=== PATIENT | male | born 1955 | race Caucasian/White ===

== ENCOUNTER 2017-08-06 09:03 | Observation (INO) | payer OTHER ==
[2017-08-06] VITALS (10 sets, daily range): BP systolic 142–172; BP diastolic 86–116; PULSE 74–88; RESP 15–20; TEMP 97.7–98.6; O2SAT 94–98
[~2017-08-06] VITALS: Ht 170.2 cm; Wt 80.0 kg
[~2017-08-06 09:03] MED LIST: AMLO10 PO; ASPI81TA82 PO; ATOR20TA42 PO; METO50TA PO; PROT40TA PO; WAL-10TA2 PO
[2017-08-06] MEDS ORDERED: ASPI-516 CHEW (09:15)
[2017-08-06] MEDS ORDERED: ATOR20TA15 PO (09:15)
[2017-08-06] MEDS ORDERED: METO50TA PO (09:15)
[2017-08-06] MEDS ORDERED: AMLO10TA2 PO (09:15)
--- NOTE | 2017-08-06 09:42 | PD ---
HPI Chief Complaint: Cardiac Complaint Time Seen by Provider: 09:32 Travel History International Travel<30 days: No Contact w/Intl Traveler<30days: No Traveled to known affect area: No History of Present Illness HPI This patient complains of some chest discomfort. Started at 2 AM. Non- exertionally induced. Located in the left center chest. Britt like a pressure and heaviness. Also describes palpitations there. He has chronic A. fib on aspirin therapy only per his report. History of bypass grafting and stent placement. No recent testing however. Duration is 7 hours. No alleviating factors. No exacerbating factors. PFSH Past Medical History Hx Anticoagulant Therapy: Yes (ASPIRIN) Cancer: Yes (HODGKINS LYMPHOMA) Cardiac Catheterization: Yes Cardiovascular Problems: Yes (QUADRUPLE BYPASS) Chemotherapy: Yes Diabetes: No Diminished Hearing: No Endocrine: No Gastrointestinal Disorders: Yes (HE ACID REFLUX) Genitourinary: No Hepatitis: No Hiatal Hernia: No Hypertension: Yes Immune Disorder: No Musculoskeletal: No Neurologic: No Psychiatric: No Respiratory: No Thyroid Disease: No Tetanus Vaccination: > 5 Years Influenza Vaccination: No Past Surgical History Abdominal Surgery: No AICD: No Body Medical Devices: CARDIAC STENTS Cardiac Surgery: Yes (CABGX4) Coronary Stent: Yes Ear Surgery: No Endocrine Surgery: No Eye Surgery: No Genitourinary Surgery: No Gynecologic Surgery: No Joint Replacement: No Oral Surgery: No Pacemaker: No Thoracic Surgery: No Social History Alcohol Use: Yes Tobacco Use: Yes (former) Substance Use: No Allergies-Medications (Allergen,Severity, Reaction): Coded Allergies: No Known Allergies (Verified Adverse Reaction, Unknown, 08/06/17) Reported Meds & Prescriptions Reported Meds & Active Scripts Active Reported Metoprolol Tartrate 50 Mg Tab 50 Mg PO BID Atorvastatin (Atorvastatin Calcium) 20 Mg Tab 20 Mg PO HS Aspirin 81 Mg Chew 81 Mg CHEW DAILY Amlodipine (Amlodipine Besylate) 10 Mg Tab 10 Mg PO DAILY Review of Systems General / Constitutional: No: Fever Eyes: No: Visual changes HENT: No: Headaches Cardiovascular: Positive: Chest Pain or Discomfort, Palpitations, Irregular Rhythm Respiratory: No: Shortness of Breath Gastrointestinal: No: Abdominal Pain Genitourinary: No: Dysuria Musculoskeletal: No: Pain Skin: No Rash Neurologic: No: Weakness Psychiatric: No: Depression Endocrine: No: Polydipsia Hematologic/Lymphatic: No: Easy Bruising Physical Exam Narrative GENERAL: Well-nourished, well-developed patient in no apparent distress. SKIN: Focused skin assessment reveals no rash and nodules. Skin is Warm and dry. HEAD: Atraumatic. Normocephalic. EYES: Pupils equal and round. No scleral icterus. No injection or drainage. ENT: No nasal bleeding or discharge. Mucous membranes pink and moist. NECK: Trachea midline. No JVD. CARDIOVASCULAR: Irregularly irregular rhythm. 2/6 systolic murmur appreciated. RESPIRATORY: No accessory muscle use. Clear to auscultation. Breath sounds equal bilaterally. GASTROINTESTINAL: Abdomen soft, non-tender, nondistended. Hepatic and splenic margins not palpable. MUSCULOSKELETAL: No obvious deformities. No clubbing. No cyanosis. No edema. NEUROLOGICAL: Awake and alert. No obvious cranial nerve deficits. Motor grossly within normal limits. Normal speech. PSYCHIATRIC: Appropriate mood and affect; insight and judgment normal. Data Data Last Documented VS Vital Signs Date Time Temp Pulse Resp B/P (MAP) Pulse Ox O2 Delivery O2 Flow Rate FiO2 08/06/17 10:09 82 15 169/116 (133) 96 Nasal Cannula 08/06/17 10:09 2.00 08/06/17 09:05 98.6 Orders Orders Electrocardiogram (08/06/17 09:39) Basic Metabolic Panel (Bmp) (08/06/17 09:39) Ckmb (Isoenzyme) Profile (08/06/17 09:39) Complete Blood Count With Diff (08/06/17 09:39) Magnesium (Mg) (08/06/17 09:39) Prothrombin Time / Inr (Pt) (08/06/17 09:39) Act Partial Throm Time (Ptt) (08/06/17 09:39) Troponin I (08/06/17 09:39) Chest, Single Ap (08/06/17 09:39) Ecg Monitoring (08/06/17 09:39) Iv Access Insert/Monitor (08/06/17 09:39) Oximetry (08/06/17 09:39) Aspirin (Aspirin) (08/06/17 09:45) Sodium Chloride 0.9% Flush (Ns Flush) (08/06/17 09:45) CKMB (08/06/17 09:30) CKMB% (08/06/17 09:30) Labs Laboratory Tests Test 08/06/17 09:30 White Blood Count 14.8 TH/MM3 Red Blood Count 5.79 MIL/MM3 Hemoglobin 16.0 GM/DL Hematocrit 47.8 % Mean Corpuscular Volume 82.4 FL Mean Corpuscular Hemoglobin 27.6 PG Mean Corpuscular Hemoglobin Concent 33.5 % Red Cell Distribution Width 13.8 % Platelet Count 147 TH/MM3 Mean Platelet Volume 9.1 FL Neutrophils (%) (Auto) 76.6 % Lymphocytes (%) (Auto) 12.0 % Monocytes (%) (Auto) 6.0 % Eosinophils (%) (Auto) 4.9 % Basophils (%) (Auto) 0.5 % Neutrophils # (Auto) 11.4 TH/MM3 Lymphocytes # (Auto) 1.8 TH/MM3 Monocytes # (Auto) 0.9 TH/MM3 Eosinophils # (Auto) 0.7 TH/MM3 Basophils # (Auto) 0.1 TH/MM3 CBC Comment DIFF FINAL Differential Comment Prothrombin Time 10.7 SEC Prothromb Time International Ratio 1.1 RATIO Activated Partial Thromboplast Time 26.1 SEC Blood Urea Nitrogen 18 MG/DL Creatinine 1.22 MG/DL Random Glucose 106 MG/DL Calcium Level 9.4 MG/DL Magnesium Level 2.2 MG/DL Sodium Level 139 MEQ/L Potassium Level 3.2 MEQ/L Chloride Level 102 MEQ/L Carbon Dioxide Level 29.7 MEQ/L Anion Gap 7 MEQ/L Estimat Glomerular Filtration Rate 61 ML/MIN Total Creatine Kinase 145 U/L Creatine Kinase MB 2.2 NG/ML Troponin I LESS THAN 0.02 NG/ML MDM Medical Decision Making Medical Screen Exam Complete: Yes Emergency Medical Condition: Yes Medical Record Reviewed: Yes Differential Diagnosis Differential diagnosis includes MD, angina, pericarditis, pleurisy, GERD, anxiety. Narrative Course I have reviewed the patient's electronic medical record. IV placed I reviewed the EKG which shows A. fib but rate controlled and no ST elevation I reviewed the chest x-ray which shows a hint of minor pulmonary congestion possibly according to radiology reading. On a clinical basis he has no peripheral edema or shortness of breath or lung crackles. Extended cardiac monitoring shows rate controlled A. fib CBC shows minor nonspecific leukocytosis. He does not have symptoms compatible with pneumonia such as fever and productive cough etc. Metabolic profile is normal CK is negative Troponin is negative Coagulation studies are normal I gave him an aspirin. On recheck the patient is basically asymptomatic. He has known coronary disease and having chest discomfort. He will be a 23 hour observation in the chest pain center in order to rule out cardiac cause of his symptoms. He has not had any recent testing according to him. His bypass grafting was over 10 years ago. Diagnosis Primary Impression: Chest pain in adult Admitting Information Admitting Physician Requests: Observation Liam Zhu MD Aug 06, 2017 09:42
[2017-08-06] MEDS ORDERED: ASPIRIN 325 MG TAB PO ONE (09:45)
[2017-08-06] MEDS ORDERED: SODIUM CHLORIDE 0.9% FLUSH 10 ML FLUSH IVF PRN (09:45)
[2017-08-06 10:04] LABS: AUTOMATED NEUTROPHIL # 11.4 TH/MM3 (1.8-7.7); BASOPHIL # 0.1 TH/MM3 (0-0.2); BASOPHIL % 0.5 % (0.0-2.0); EOSINOPHIL # 0.7 TH/MM3 (0-0.4); EOSINOPHIL % 4.9 % (0.0-4.0); HEMATOCRIT 47.8 % (39.0-51.0); LYMPHOCYTE # 1.8 TH/MM3 (1.0-4.8); MEAN CELL VOLUME 82.4 FL (80.0-100.0); MEAN CORPUSCULAR HEMOGLOBIN 27.6 PG (27.0-34.0); MEAN CORPUSCULAR HGB CONC 33.5 % (32.0-36.0); MEAN PLATELET VOLUME 9.1 FL (7.0-11.0); MONOCYTE # 0.9 TH/MM3 (0-0.9); NEUT % 76.6 % (16.0-70.0); PLATELET COUNT 147 TH/MM3 (150-450); RED BLOOD COUNT 5.79 MIL/MM3 (4.50-5.90); RED CELL DISTRIBUTION WIDTH 13.8 % (11.6-17.2); WHITE BLOOD COUNT 14.8 TH/MM3 (4.0-11.0)
[2017-08-06 10:10] LABS: INTERNATIONAL NORMALIZED RATIO 1.1 RATIO; PROTHROMBIN TIME - PATIENT 10.7 SEC (9.8-11.6)
[2017-08-06 10:23] LABS: BICARBONATE 29.7 MEQ/L (21.0-32.0); BLOOD UREA NITROGEN 18 MG/DL (7-18); CALCIUM 9.4 MG/DL (8.5-10.1); CHLORIDE 102 MEQ/L (98-107); CREATININE 1.22 MG/DL (0.60-1.30); GLOMERULAR FILTRATION RATE 61 ML/MIN (>89); GLUCOSE,RANDOM 106 MG/DL (74-106); MAGNESIUM 2.2 MG/DL (1.5-2.5); SODIUM (NA) 139 MEQ/L (136-145)
--- NOTE | 2017-08-06 10:24 | RADRPT ---
EXAM DATE/TIME: 08/06/2017 10:07 [facility] COMPARISON: CHEST, AP [facility], October 12, 2014, 9:17. INDICATIONS : Mid-sternal chest pains radiating into axillary left arm. MEDICAL HISTORY : Myocardial infarction. Chronic obstructive pulmonary disease. SURGICAL HISTORY : CABG. ENCOUNTER: Initial ACUITY: 2 days PAIN SCORE: 7/10 LOCATION: Left chest FINDINGS: Noted is evidence of prior median sternotomy CABG. Heart is borderline left ventricular configuration . Pl avascularity may have some minimal ren-vascular interstitial changes suggesting mild pulmonary vascular congestion. No consolidative infiltrate. CONCLUSION: Prior median sternotomy CABG. Borderline left ventricular enlargement. Suggestion of minimal perivasc ular interstitial edema pulmonary vascular congestion Thomas Iqbal MD on August 06, 2017 at 10:19 Board Certified Radiologist. This report was verified electronically.
[2017-08-06 10:26] LABS: TROPONIN I LESS THAN 0.02 NG/ML (0.02-0.05)
[2017-08-06] MEDS ORDERED: NITROGLYCERIN 0.4 MG SL 25 TABS/BTL SL PRN (11:45)
[2017-08-06] MEDS ORDERED: ACETAMINOPHEN 500 MG CPLT PO PRN (11:45)
[2017-08-06] MEDS ORDERED: ONDANSETRON HCL 4 MG/2 ML VIAL IV PUSH PRN (11:45)
--- NOTE | 2017-08-06 12:41 | HHI.HP ---
HPI Primary Care Physician Dominick Alston MD Chief Complaint Chest pain History of Present Illness 62-year-old male with known coronary artery disease, CABG 4 at age 50 presents to emergency room for further violation of chest pain and dyspnea. Onset 2 AM. Discomfort awoken him from sleep. Characterized pressure and heaviness. Location left anterior chest. Severity 4/10. Associated symptoms of dyspnea. Denied nausea, vomiting, or diaphoresis. Chest discomfort duration 7-8 hours, dyspnea duration 5 hours. No known precipitating or relieving factors. Denies pain being similar to chest pain prior CABG. Endorses similar pains in the past , infrequent, nonexertional, and not as severe. Currently chest pain free and dyspnea resolved. Review of Systems General: No fatigue,weakness, fever, chills, or recent illness change in appetite. Has been his general state health. HEENT: No DAY, no vision changes, no nasal congestion or drainage, no dysphasia CV: As stated above. No current chest pain or pressure at present. History of A. fib without any past episodes of elevated rate with afib. No dizziness RESP: No SOB, cough, wheeze, or recent URI. GI: No nausea, vomiting, bowel changes, diarrhea, constipation, pain, distention , melena, blood in the stool. No change in appetite, no unintentional weight gain or weight loss : No dysuria, urgency, frequency EXT: No lower leg edema, no paraesthesias MS: No discomfort or change in ROM NEURO: No change in memory, LOC, motor/sensory deficits PSYCH: No anxiety, depression SKIN: No rashes, no concerning lesions Past Family Social History Allergies: Coded Allergies: No Known Allergies (Verified Allergy, Unknown, 08/06/17) Past Medical History A. fib, coronary artery disease, hyperlipidemia, Hodgkin's lymphoma, GERD, hypertension Past Surgical History CABG 4 (age 50) Reported Medications Reported Meds & Active Scripts Active Reported Metoprolol Tartrate 50 Mg Tab 50 Mg PO BID Atorvastatin (Atorvastatin Calcium) 20 Mg Tab 20 Mg PO HS Aspirin 81 Mg Chew 81 Mg CHEW DAILY Amlodipine (Amlodipine Besylate) 10 Mg Tab 10 Mg PO DAILY Active Ordered Medications Current Medications Medications (Trade) Dose Ordered Sig/Sammy Route Start Time Stop Time Status Last Admin (NS Flush) 2 ml UNSCH PRN IVF 08/06/17 09:45 (NS Flush) 2 ml BID IV FLUSH 08/06/17 21:00 (Tylenol) 500 mg Q4H PRN PO 08/06/17 11:45 (Zofran Inj) 4 mg Q6H PRN IV PUSH 08/06/17 11:45 (Nitrostat Sl) 0.4 mg Q5M PRN SL 08/06/17 11:45 (Aspirin) 325 mg DAILY PO 08/07/17 09:00 Social History Known coronary artery disease and hypertension. No known diabetes. Remote smoker. Denies any alcohol. Endorses lifestyle. Past Cardiac testing No recent cardiac testing. Patient paleologist is Dr. Bella. 10/26/13 cardiac catheterization (Dr. Bella) Conclusions 1. Severe three-vessel nightmute coronary artery disease. 2. Right dominant system. 3. Patent left internal mammary artery to LAD and patent vein graft to obtuse marginal. 4. Totally occluded pain graft to the post tearing a lateral branch, which is a new finding. 5. Moderately diseased proximal portion of the vein graft to the posterior descending artery with fractional flow reserve determination indicated absence of hemodynamic only significant disease. 6. Normal left ventricular function with estimated ejection fraction 55%. 12/20/10 cardiac catheterization (Dr. Bella) Conclusions 1. Severe three-vessel nightmute coronary disease. 2. Right dominant system. 3. Patent 4/4 bypass grafts including a left internal mammary artery to left anterior descending, 3 separate vein grafts to the obtuse marginal, posterior lateral branch, posterior descending artery. 4. Status post angioplasty and stent of nightmute left anterior descending distal to the anastomosis site, and the nightmute obtuse marginal distal to the anastomosis site. 5. Normal left ventricular function with ejection fraction of 65%. Physical Exam Vital Signs Vital Signs Date Time Temp Pulse Resp B/P (MAP) Pulse Ox O2 Delivery O2 Flow Rate FiO2 08/06/17 10:09 82 15 169/116 (133) 96 Nasal Cannula 08/06/17 10:09 85 15 169/116 (133) 95 Nasal Cannula 2.00 08/06/17 09:21 82 95 2.00 08/06/17 09:16 83 16 167/107 (127) 08/06/17 09:05 98.6 88 16 172/104 (126) 96 Physical Exam GENERAL: Alert WN, WD, NAD, pleasant HEAD: NC, AT CV: Irregular, regular rate, 2/6 murmur, no rub, gallop, no JVD, S1-S2 no S3- S4. Chest wall nontender with palpation. RESP: Clear lungs throughout bilateral, no crackles, wheeze, rhonchi, symmetrical chest rise, nonlabored, able to speak in full sentences ABD: Soft, NT, ND, no masses, positive bowel tones EXT: Pulses +24, no dependent edema MS: Normal tone 4 extremities, no obvious deformities, full range of motion NEURO: CN II through CN XII grossly intact, motor strength 5/5 PSYCH: A+O 3, pleasant affect, appropriate speech, mood, insight and judgment SKIN: Normal turgor, normal texture, no lesions, no rashes, brisk cap refill, even hair distribution Laboratory Laboratory Tests Test 08/06/17 09:30 White Blood Count 14.8 Red Blood Count 5.79 Hemoglobin 16.0 Hematocrit 47.8 Mean Corpuscular Volume 82.4 Mean Corpuscular Hemoglobin 27.6 Mean Corpuscular Hemoglobin Concent 33.5 Red Cell Distribution Width 13.8 Platelet Count 147 Mean Platelet Volume 9.1 Neutrophils (%) (Auto) 76.6 Lymphocytes (%) (Auto) 12.0 Monocytes (%) (Auto) 6.0 Eosinophils (%) (Auto) 4.9 Basophils (%) (Auto) 0.5 Neutrophils # (Auto) 11.4 Lymphocytes # (Auto) 1.8 Monocytes # (Auto) 0.9 Eosinophils # (Auto) 0.7 Basophils # (Auto) 0.1 CBC Comment DIFF FINAL Differential Comment Prothrombin Time 10.7 Prothromb Time International Ratio 1.1 Activated Partial Thromboplast Time 26.1 Blood Urea Nitrogen 18 Creatinine 1.22 Random Glucose 106 Calcium Level 9.4 Magnesium Level 2.2 Sodium Level 139 Potassium Level 3.2 Chloride Level 102 Carbon Dioxide Level 29.7 Anion Gap 7 Estimat Glomerular Filtration Rate 61 Total Creatine Kinase 145 Creatine Kinase MB 2.2 Troponin I LESS THAN 0.02 Result Diagram: 08/06/1792908/06/17929 Imaging Last 48 hours Impressions Chest X-Ray 08/06/17 0939 Signed Impressions: Service Date/Time: Sunday, August 06, 2017 10:07 - CONCLUSION: Prior median sternotomy CABG. Borderline left ventricular enlargement. Suggestion of minimal perivascular interstitial edema pulmonary vascular congestion Thomas Iqbal MD Course EKG atrial fibrillation with nonspecific ST changes Caprini VTE Risk Assessment Caprini VTE Risk Assessment: No/Low Risk (score <= 1) Caprini Risk Assessment Model Point Value = 1 Point Value = 2 Point Value = 3 Point Value = 5 Age 41-60 Minor surgery BMI > 25 kg/m2 Swollen legs Varicose veins or History of unexplained or recurrent spontaneous Oral contraceptives or hormone replacement Sepsis (< 1 month) Serious lung disease, including pneumonia (< 1 month) Abnormal pulmonary function Acute myocardial infarction Congestive heart failure (< 1 month) History of inflammatory bowel disease Medical patient at bed rest Age 61-74 Arthroscopic surgery Major open surgery (> 45 min) Laparoscopic surgery (> 45 min) Malignancy Confined to bed (> 72 hours) Immobilizing plaster cast Central venous access Age >= 75 History of VTE Family history of VTE Factor V Leiden Prothrombin [id number] Lupus anticoagulant Anticardiolipin antibodies Elevated serum homocysteine Heparin-induced thrombocytopenia Other congenital or acquired thrombophilia Stroke (< 1 month) Elective arthroplasty Hip, pelvis, or leg fracture Acute spinal cord injury (< 1 month) Prophylaxis Regimen Total Risk Factor Score Risk Level Prophylaxis Regimen 0-1 Low Early ambulation 2 Moderate Order ONE of the following: *Sequential Compression Device (SCD) *Heparin 5000 units SQ BID 3-4 Higher Order ONE of the following medications: *Heparin 5000 units SQ TID *Enoxaparin/Lovenox 40 mg SQ daily (WT < 150 kg, CrCl > 30 mL/min) *Enoxaparin/Lovenox 30 mg SQ daily (WT < 150 kg, CrCl > 10-29 mL/min) *Enoxaparin/Lovenox 30 mg SQ BID (WT < 150 kg, CrCl > 30 mL/min) AND/OR *Sequential Compression Device (SCD) 5 or more Highest Order ONE of the following medications: *Heparin 5000 units SQ TID (Preferred with Epidurals) *Enoxaparin/Lovenox 40 mg SQ daily (WT < 150 kg, CrCl > 30 mL/min) *Enoxaparin/Lovenox 30 mg SQ daily (WT < 150 kg, CrCl > 10-29 mL/min) *Enoxaparin/Lovenox 30 mg SQ BID (WT < 150 kg, CrCl > 30 mL/min) AND *Sequential Compression Device (SCD) Assessment and Plan Assessment and Plan #1 Chest pain-admitted to chest pain center. Rule out with 3 sets of EKGs, cardiac enzymes, and monitor on telemetry. Will be seen and evaluated by Dr. Caitie Low. Further disposition to follow. Discussed likelyhood of completing chemical stress testing later this afternoon after evaluation by Dr. Low. #2 History of coronary artery disease-continue amlodipine, aspirin, metoprolol, and atorvastatin [address] Bella and notified him of patient's admission to [facility]. Proceed with chemical stress testing in morning. Gena Canchola Aug 06, 2017 12:41
[2017-08-06 13:55] LABS: TROPONIN I LESS THAN 0.02 NG/ML (0.02-0.05)
[2017-08-06] MEDS ORDERED: POTASSIUM CHLORIDE 20 MEQ CONTROLLED RELEASE TAB PO ONE (14:00)
[2017-08-06 16:44] LABS: TROPONIN I 0.02 NG/ML (0.02-0.05)
--- NOTE | 2017-08-06 16:58 | EKG ---
Date Performed: 08/06/2017 Time Performed: 09:15:58 PTAGE: 62 years EKG: ATRIAL FIBRILLATION NONSPECIFIC ST & T-WAVE ABNORMALITY ABNORMAL RHYTHM ECG Since PREVIOUS TRACING , now in AF PREVIOUS TRACIN10/26/2013 06.14 DOCTOR: Caitie Low Interpretating Date/Time 08/06/2017 16:57:20
--- NOTE | 2017-08-06 16:58 | EKG ---
Date Performed: 08/06/2017 Time Performed: 13:51:09 PTAGE: 62 years EKG: ATRIAL FIBRILLATION NONSPECIFIC ST & T-WAVE ABNORMALITY ABNORMAL RHYTHM ECG Since PREVIOUS TRACING , no significant change noted PREVIOUS TRACIN08/06/2017 09.15 DOCTOR: Caitie Low Interpretating Date/Time 08/06/2017 16:58:08
[2017-08-06] MEDS ORDERED: SODIUM CHLORIDE 0.9% FLUSH 10 ML FLUSH IV FLUSH SCH (21:00)
[2017-08-06] MEDS ORDERED: ATORVASTATIN 20 MG TAB PO SCH (21:00)
[2017-08-06] MEDS ORDERED: METOPROLOL TARTRATE 50 MG TAB PO SCH (21:00)
[2017-08-06] MEDS ORDERED: diphenhydrAMINE HCL 25 MG CAP PO ONE (23:45)
[2017-08-07] VITALS: BP 149/93; PULSE 65; RESP 18; TEMP 98.6; O2SAT 95
[2017-08-07 03:36] VITALS: BP 154/102; PULSE 74; RESP 19; TEMP 99; O2SAT 94
[2017-08-07 07:01] VITALS: PULSE 75
[2017-08-07 07:25] VITALS: BP 144/94; PULSE 82; RESP 18; TEMP 99.6; O2SAT 96
[2017-08-07] MEDS ORDERED: ASPIRIN 325 MG TAB PO SCH (09:00)
[2017-08-07] MEDS ORDERED: REGADENOSON INJ 0.4 MG/5 ML SYR ONE (09:36)
--- NOTE | 2017-08-07 10:41 | RADRPT ---
EXAM DATE/TIME: 08/07/2017 09:05 [facility] COMPARISON: No previous studies available for comparison. INDICATIONS : Substernal chest pain. Angina. DOSE: 27.3 mCi Tc99m Myoview at stress. 8.6 mCi Tc99m Myoview at rest. 0.4 mg Lexiscan STRESS SYMPTOMS: Dyspnea. EJECTION FRACTION: 62% MEDICAL HISTORY : Hypercholesterolemia. Hypertension. Smoker. SURGICAL HISTORY : CABG Coronary artery stent. ENCOUNTER: Initial ACUITY: 1 day PAIN SCALE: 8/10 LOCATION: Substernal chest TECHNIQUE: The patient underwent pharmacologic stress with infusion of prescribed dose. Continuous ECG tracing was monitored during stress. Gated SPECT imaging was performed after stress and conventional SPECT i maging was performed at rest. The examination was performed on a SPECT/CT scanner, both attenuation and non-corrected datasets were reviewed. FINDINGS: DISTRIBUTION: The maximum perfused segment at stress is in the inferoseptal wall. PERFUSION STUDY: The examination demonstrates a moderate severity, moderate sized fixed perfusion defect involving por tions of the inferior and lateral perez. No reversible perfusion defect is identified. GATED STUDY: There is intact wall motion and thickening without hypokinetic or dyskinetic segments. CONCLUSION: 1. Next perfusion defect involving portions of the inferior lateral perez. No reversible perfusion de fect to indicate stress-induced myocardial ischemia is identified. 2. Ejection fraction within the range of normal. RISK CATEGORY: Intermediate (1-3% Annual Mortality Rate) Loco Adhikari MD on August 07, 2017 at 10:34 Board Certified Radiologist. This report was verified electronically.
[2017-08-07 11:35] VITALS: BP 152/92; PULSE 83; RESP 20; TEMP 97.9; O2SAT 95
--- NOTE | 2017-08-07 11:50 | PD.CARD.PN ---
Subjective Subjective Remarks Offers no complaints. Objective Medications Current Medications Medications (Trade) Dose Ordered Sig/Sammy Route Start Time Stop Time Status Last Admin (NS Flush) 2 ml UNSCH PRN IVF 08/06/17 09:45 (NS Flush) 2 ml BID IV FLUSH 08/06/17 21:00 (Tylenol) 500 mg Q4H PRN PO 08/06/17 11:45 (Zofran Inj) 4 mg Q6H PRN IV PUSH 08/06/17 11:45 (Nitrostat Sl) 0.4 mg Q5M PRN SL 08/06/17 11:45 (Aspirin) 325 mg DAILY PO 08/07/17 09:00 (Norvasc) 10 mg DAILY PO 08/07/17 09:00 (Lipitor) 20 mg HS PO 08/06/17 21:00 08/06/17 20:01 (Lopressor) 50 mg BID PO 08/06/17 21:00 08/06/17 20:02 Vital Signs / I&O Vital Signs Date Time Temp Pulse Resp B/P (MAP) Pulse Ox O2 Delivery O2 Flow Rate FiO2 08/07/17 11:35 97.9 83 20 152/92 (112) 95 08/07/17 07:25 99.6 82 18 144/94 (111) 96 08/07/17 07:01 75 08/07/17 03:36 99.0 74 19 154/102 (119) 94 08/07/17 00:00 98.6 65 18 149/93 (111) 95 08/06/17 20:20 95 Nasal Cannula 2.00 08/06/17 19:55 98.6 82 20 159/90 (113) 94 08/06/17 18:07 2.00 08/06/17 18:00 148/96 (113) 08/06/17 17:30 97.7 88 18 155/102 (119) 95 08/06/17 16:16 88 08/06/17 13:42 98.1 83 18 155/99 (117) 94 08/06/17 13:37 87 08/06/17 12:50 08/06/17 12:00 74 15 142/86 (104) 98 Nasal Cannula 2.00 I/O 08/06/17 08/06/17 08/06/17 08/07/17 08/07/1708/07/18 07:00 15:00 23:00 07:00 15:00 23:00 Intake Total 340 ml 200 ml Output Total 0 ml Balance 0 ml 340 ml 200 ml Intake Oral 340 ml 200 ml Output Urine Total 0 ml Physical Exam Gen.: No apparent distress. Cardiac: Irregular, irregular rate, 2/6 murmur. Respiratory: Lungs clear to auscultate bilaterally. Laboratory Laboratory Tests Test 08/06/17 13:10 08/06/17 15:40 Total Creatine Kinase 108 U/L 86 U/L Creatine Kinase MB 1.2 NG/ML Troponin I LESS THAN 0.02 NG/ML 0.02 NG/ML Imaging Last 24 hours Impressions Myocardial Perfusion Scan Nuc Med 08/07/17 0000 Signed Impressions: Service Date/Time: Monday, August 07, 2017 09:05 - CONCLUSION: 1. Next perfusion defect involving portions of the inferior lateral perez. No reversible perfusion defect to indicate stress-induced myocardial ischemia is identified. 2. Ejection fraction within the range of normal. RISK CATEGORY: Intermediate (1-3%% Annual Mortality Rate) Loco Adhikari MD Assessment and Plan Assessment and Plan * Chest pain: Patient had serial cardiac enzymes and EKGs ruling out purposes. He was seen by Dr. Low yesterday and had a nonischemic Lexiscan and will be discharged home at this time with instructions to follow-up with his cleat feeder as well as his PCP. He should resume his medications. Return to ED for interval issues. Patient stable at this time. He is agreeable to this plan. Olman Kaminski Aug 07, 2017 11:50
--- NOTE | 2017-08-07 13:06 | EKG ---
Date Performed: 08/06/2017 Time Performed: 15:41:50 PTAGE: 62 years EKG: ATRIAL FIBRILLATION NONSPECIFIC ST & T-WAVE ABNORMALITY ABNORMAL RHYTHM ECG PREVIOUS TRACING : 08/06/2017 13.51 Since previous tracing, no significant change noted DOCTOR: Lucian Florez Interpretating Date/Time 08/07/2017 13:06:06
--- NOTE | 2017-08-07 13:13 | HHI.DCPOC ---
Discharge Care Plan Diagnosis: (1) Chest pain (2) CAD (coronary artery disease) (3) Hx of CABG (4) Chronic a-fib (5) Hypertension (6) Hyperlipidemia Goals to Promote Your Health * To prevent worsening of your condition and complications * To maintain your health at the optimal level Directions to Meet Your Goals Take your medications as prescribed Follow your dietary instruction Follow activity as directed Keep your appointments as scheduled Take your immunizations and boosters as scheduled If your symptoms worsen call your PCP, if no PCP go to Urgent Care Center or Emergency Room Smoking is Dangerous to Your Health. Avoid second hand smoke Call the 24-hour hour crisis hotline for domestic abuse at Olman Kaminski Aug 07, 2017 13:13
--- NOTE | 2017-08-09 12:04 | TR ---
Date Performed: 08/07/2017 Time Performed: 09:38:14 DOCTOR: Damian Arce DRUG LIST: CLINICAL HISTORY: REASON FOR TEST: REASON FOR ENDING: OBSERVATION: CONCLUSION: Lexiscan stress test was performed under standard four minute protocol. Radionuclide was injected one minute prior to ending the test. No electrocardiographic abormalities were present to suggest ischemia. Nuclear imaging and interpretation are pending. COMMENTS:
== END 2017-08-07 13:49 | disposition home or self-care (01) ==
LOC: NEPE 09:03 → NEDA 11:19 → NEPFCDU 13:13
PROVIDERS: ADMIT Internal Medicine Interventional Cardiology; ATTEND Internal Medicine Interventional Cardiology
DX: R07.9 Chest pain, unspecified (principal); I25.10 Atherosclerotic heart disease of native coronary artery without angina pectoris; I48.2 Chronic atrial fibrillation; I10 Essential (primary) hypertension; E78.5 Hyperlipidemia, unspecified; K21.9 Gastro-esophageal reflux disease without esophagitis; Z95.5 Presence of coronary angioplasty implant and graft; Z95.1 Presence of aortocoronary bypass graft; Z79.82 Long term (current) use of aspirin; Z85.71 Personal history of Hodgkin lymphoma; Z87.891 Personal history of nicotine dependence
CPT/HCPCS: 71045; 78452; 80048; 82550; 82552; 83735; 84484; 85025; 85610; 85730; 93005; 93017; 99285; A9502; G0378; J2785

== ENCOUNTER 2017-08-12 12:42 | Inpatient (IN) | payer OTHER ==
[~2017-08-12] VITALS: Ht 170.2 cm; Wt 84.3 kg
[2017-08-12] VITALS (7 sets, daily range): BP systolic 146–175; BP diastolic 94–111; PULSE 72–94; RESP 18–27; TEMP 98.4–98.7; O2SAT 92–99
[~2017-08-12 12:42] MED LIST changes: -AMLO10 PO; +AMLO10TA2 PO; +ASPI-516 CHEW; -ASPI81TA82 PO; +ATOR20TA15 PO; -ATOR20TA42 PO; -PROT40TA PO; -WAL-10TA2 PO
[2017-08-12] MEDS ORDERED: IODIXANOL 320 MG/ML 10 ML VIAL (for Rad CT) IVCONTRAST ONE (12:43)
[2017-08-12 13:38] LABS: AUTOMATED NEUTROPHIL # 8.8 TH/MM3 (1.8-7.7); BASOPHIL # 0.1 TH/MM3 (0-0.2); BASOPHIL % 0.5 % (0.0-2.0); EOSINOPHIL # 0.5 TH/MM3 (0-0.4); EOSINOPHIL % 4.3 % (0.0-4.0); HEMOGLOBIN 14.3 GM/DL (13.0-17.0); LYMPH % 14.4 % (9.0-44.0); LYMPHOCYTE # 1.7 TH/MM3 (1.0-4.8); MEAN CELL VOLUME 80.7 FL (80.0-100.0); MEAN CORPUSCULAR HEMOGLOBIN 27.5 PG (27.0-34.0); MEAN CORPUSCULAR HGB CONC 34.1 % (32.0-36.0); MEAN PLATELET VOLUME 9.3 FL (7.0-11.0); MONO % 6.4 % (0.0-8.0); MONOCYTE # 0.8 TH/MM3 (0-0.9); NEUT % 74.4 % (16.0-70.0); PLATELET COUNT 177 TH/MM3 (150-450); WHITE BLOOD COUNT 11.9 TH/MM3 (4.0-11.0)
[2017-08-12 13:49] LABS: INTERNATIONAL NORMALIZED RATIO 1.1 RATIO; PROTHROMBIN TIME - PATIENT 10.7 SEC (9.8-11.6)
--- NOTE | 2017-08-12 13:55 | RADRPT ---
EXAM DATE/TIME: 08/12/2017 13:35 [facility] COMPARISON: CHEST SINGLE AP, August 06, 2017, 10:07. INDICATIONS : Short of breath. MEDICAL HISTORY : Lymphoma in remission SURGICAL HISTORY : Coronary artery stent. CABG. ENCOUNTER: Initial ACUITY: 1 day PAIN SCORE: 0/10 LOCATION: Left chest FINDINGS: Cardiomegaly with moderate interstitial edema and small bilateral pleural effusions suspicious for co ngestive failure. Findings have progressed in the interval. Sternal wires from previous bypass are noted. The portion of the bony skeleton visualized is unremarkable. CONCLUSION: Progression when compared to 08/06/17 thought to be congestive failure. Juan Adhikari MD FACR on August 12, 2017 at 13:52 Board Certified Radiologist. This report was verified electronically.
[2017-08-12 14:00] LABS: ALBUMIN 3.4 GM/DL (3.4-5.0); ALT (GPT) 70 U/L (12-78); AST (GOT) 61 U/L (15-37); BICARBONATE 25.4 MEQ/L (21.0-32.0); BLOOD UREA NITROGEN 35 MG/DL (7-18); CALCIUM 9.2 MG/DL (8.5-10.1); CHLORIDE 101 MEQ/L (98-107); CREATININE 1.84 MG/DL (0.60-1.30); GLOMERULAR FILTRATION RATE 38 ML/MIN (>89); GLUCOSE,RANDOM 103 MG/DL (74-106); MAGNESIUM 2.3 MG/DL (1.5-2.5); SODIUM (NA) 136 MEQ/L (136-145)
[2017-08-12 14:04] LABS: ALKALINE PHOSPHATASE 68 U/L (45-117); TOTAL BILIRUBIN ADULT 2.3 MG/DL (0.2-1.0); TROPONIN I LESS THAN 0.02 NG/ML (0.02-0.05)
[2017-08-12] MEDS ORDERED: FUROSEMIDE 100 MG/10 ML VIAL IVP ONE (14:15)
[2017-08-12] MEDS ORDERED: SODIUM CHLORIDE 0.9% FLUSH 10 ML FLUSH IVF PRN (14:15)
--- NOTE | 2017-08-12 14:33 | PD ---
HPI Chief Complaint: Respiratory Symptoms Time Seen by Provider: 13:59 Travel History International Travel<30 days: No Contact w/Intl Traveler<30days: No Traveled to known affect area: No History of Present Illness HPI 62-year-old male presents to the emergency Department with worsening exertional dyspnea over the past several days. Patient was recently admitted for chest pain one week ago, receiving a full cardiac workup including sestamibi stress test on August 06, 2016. Patient is noted to have atrial fibrillation. He is noted not to have no significant edema. Patient states he can walk approximately 10 feet before becoming extremely winded with chest tightness but no significant pain. This is gotten progressively worse since he left the hospital. 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 As fever, chills, productive cough, abdominal pain, nausea, or diarrhea. EKG performed in triage shows atrial fibrillation with questionable ST changes in the lateral leads. This is reviewed by Dr. Regalado. Labs were ordered in triage as well including a proBNP. The patient has no known drug allergies. It is noted the patient is not on a diuretic. Patient has no known drug allergies PFSH Past Medical History Hx Anticoagulant Therapy: Yes (ASPIRIN) Heart Rhythm Problems: Yes (AY FIB) Cancer: Yes ([place]KINS LYMPHOMA) Cardiac Catheterization: Yes Cardiovascular Problems: Yes (QUADRUPLE BYPASS) High Cholesterol: Yes Chemotherapy: Yes Diabetes: No Diminished Hearing: No Endocrine: No Gastrointestinal Disorders: Yes (HE ACID REFLUX) Genitourinary: No Hepatitis: No Hiatal Hernia: No Hypertension: Yes Immune Disorder: No Musculoskeletal: No Neurologic: No Psychiatric: No Respiratory: No Thyroid Disease: No Past Surgical History Abdominal Surgery: No AICD: No Body Medical Devices: CARDIAC STENTS Cardiac Surgery: Yes (CABGX4) Coronary Stent: Yes Ear Surgery: No Endocrine Surgery: No Eye Surgery: No Genitourinary Surgery: No Gynecologic Surgery: No Joint Replacement: No Oral Surgery: No Pacemaker: No Thoracic Surgery: No Other Surgery: Yes Family History Family Myocardial Infarction: Yes Social History Alcohol Use: Yes Tobacco Use: Yes (former) Substance Use: No Allergies-Medications (Allergen,Severity, Reaction): Coded Allergies: No Known Allergies (Verified Allergy, Unknown, 08/12/17) Reported Meds & Prescriptions Reported Meds & Active Scripts Active Reported Metoprolol Tartrate 50 Mg Tab 50 Mg PO BID Atorvastatin (Atorvastatin Calcium) 20 Mg Tab 20 Mg PO HS Aspirin 81 Mg Chew 81 Mg CHEW DAILY Amlodipine (Amlodipine Besylate) 10 Mg Tab 10 Mg PO DAILY Review of Systems Except as stated in HPI: all other systems reviewed are Neg General / Constitutional: No: Fever Eyes: No: Visual changes HENT: No: Headaches Cardiovascular: Positive: Chest Pain or Discomfort (tightness.), Irregular Rhythm, Dyspnea on exertion (moderate to severe) Respiratory: No: Shortness of Breath Gastrointestinal: No: Abdominal Pain Genitourinary: No: Dysuria Musculoskeletal: No: Pain Skin: No Rash Neurologic: No: Weakness Psychiatric: No: Depression Endocrine: No: Polydipsia Hematologic/Lymphatic: No: Easy Bruising Physical Exam Narrative GENERAL: Patient appears in mild distress and anxious. SKIN: Warm and dry. Normal color. Normal turgor HEAD: Atraumatic. Normocephalic. EYES: Pupils equal and round. No scleral icterus. No injection or drainage. ENT: No nasal bleeding or discharge. Mucous membranes pink and moist. Thanks is clear. Airway is patent NECK: Trachea midline. No JVD. Supple and nontender. CARDIOVASCULAR: Irregular rate and rhythm. Question 2/6 systolic murmur. RESPIRATORY: No accessory muscle use. Mild wheezes and crackles bilaterally to auscultation. Breath sounds equal bilaterally. GASTROINTESTINAL: Abdomen soft, non-tender, nondistended. Hepatic and splenic margins not palpable. MUSCULOSKELETAL: Extremities without clubbing, cyanosis, or edema. No obvious deformities. NEUROLOGICAL: Awake and alert. No obvious cranial nerve deficits. Motor grossly within normal limits. Five out of 5 muscle strength in the arms and legs. Normal speech. PSYCHIATRIC: Appropriate mood and affect; insight and judgment normal. Data Data Last Documented VS Vital Signs Date Time Temp Pulse Resp B/P (MAP) Pulse Ox O2 Delivery O2 Flow Rate FiO2 08/12/17 14:33 94 Nasal Cannula 2.00 08/12/17 13:43 08/12/17 12:44 98.7 75 18 Orders Orders Complete Blood Count With Diff (08/12/17 12:54) Comprehensive Metabolic Panel (08/12/17 12:54) B-Type Natriuretic Peptide (08/12/17 12:54) Act Partial Throm Time (Ptt) (08/12/17 12:54) Prothrombin Time / Inr (Pt) (08/12/17 12:54) Magnesium (Mg) (08/12/17 12:54) Ckmb (Isoenzyme) Profile (08/12/17 12:54) Troponin I (08/12/17 12:54) Electrocardiogram (08/12/17 12:54) Chest, Pa & Lat (08/12/17 12:54) CKMB (08/12/17 13:20) CKMB% (08/12/17 13:20) Iv Access Insert/Monitor (08/12/17 14:13) Ecg Monitoring (08/12/17 14:13) Oximetry (08/12/17 14:13) Oxygen Administration (08/12/17 14:13) Sodium Chloride 0.9% Flush (Ns Flush) (08/12/17 14:15) Furosemide Inj (Lasix Inj) (08/12/17 14:15) Ct Pulmonary Angiogram (08/12/17 14:36) Iodixanol 320 Inj (Rad Ct) (Visipaque 32 (08/12/17 12:43) Labs Laboratory Tests Test 08/12/17 13:20 White Blood Count 11.9 TH/MM3 Red Blood Count 5.20 MIL/MM3 Hemoglobin 14.3 GM/DL Hematocrit 42.0 % Mean Corpuscular Volume 80.7 FL Mean Corpuscular Hemoglobin 27.5 PG Mean Corpuscular Hemoglobin Concent 34.1 % Red Cell Distribution Width 14.0 % Platelet Count 177 TH/MM3 Mean Platelet Volume 9.3 FL Neutrophils (%) (Auto) 74.4 % Lymphocytes (%) (Auto) 14.4 % Monocytes (%) (Auto) 6.4 % Eosinophils (%) (Auto) 4.3 % Basophils (%) (Auto) 0.5 % Neutrophils # (Auto) 8.8 TH/MM3 Lymphocytes # (Auto) 1.7 TH/MM3 Monocytes # (Auto) 0.8 TH/MM3 Eosinophils # (Auto) 0.5 TH/MM3 Basophils # (Auto) 0.1 TH/MM3 CBC Comment DIFF FINAL Differential Comment Prothrombin Time 10.7 SEC Prothromb Time International Ratio 1.1 RATIO Activated Partial Thromboplast Time 25.8 SEC Blood Urea Nitrogen 35 MG/DL Creatinine 1.84 MG/DL Random Glucose 103 MG/DL Total Protein 7.0 GM/DL Albumin 3.4 GM/DL Calcium Level 9.2 MG/DL Magnesium Level 2.3 MG/DL Alkaline Phosphatase 68 U/L Aspartate Amino Transf (AST/SGOT) 61 U/L Alanine Aminotransferase (ALT/SGPT) 70 U/L Total Bilirubin 2.3 MG/DL Sodium Level 136 MEQ/L Potassium Level 3.8 MEQ/L Chloride Level 101 MEQ/L Carbon Dioxide Level 25.4 MEQ/L Anion Gap 10 MEQ/L Estimat Glomerular Filtration Rate 38 ML/MIN Total Creatine Kinase 334 U/L Creatine Kinase MB 11.1 NG/ML Creatine Kinase MB % 3.3 % Troponin I LESS THAN 0.02 NG/ML B-Type Natriuretic Peptide 487 PG/ML MDM Medical Decision Making Medical Screen Exam Complete: Yes Emergency Medical Condition: Yes Medical Record Reviewed: Yes Differential Diagnosis Moderate to severe Exertional dyspnea. Cardiac syndrome. PE. CHF. Renal failure. Narrative Course Patient appears medically stable at time of exam. EKG shows atrial fibrillation consistent with previous EKG. Labs show mild leukocytosis of 11.9 PT 10.7, INR 1.1, APTT is 25.8 Chemistry showed normal electrolytes, BUN is 35, creatinine is 1.8 for which is elevated from previous visit, as many GFR is 38 Total bilirubin is elevated at 2.3, AST is 61, total creatinine kinase is 334, CK-MB is 11.1 however troponin is less than 0.02. BNP is a 47 Chest x-ray shows: Cardiomegaly with moderate interstitial edema and small bilateral pleural effusions suspicious for congestive failure. Findings have progressed in the interval. Sternal wires from previous bypass are noted. The portion of the bony skeleton visualized is unremarkable. Patient is noted to only be on metoprolol, amlodipine, and aspirin. Patient is given 60 mg Lasix IV. Patient discussed with Dr. Regalado, and PE is possible. CTA of the chest is ordered. CTA is negative for any pulmonary emboli. Hospitalist is called for admission. Diagnosis Primary Impression: Congestive heart failure Qualified Codes: I50.9 - Heart failure, unspecified Additional Impression: Chronic a-fib Admitting Information Admitting Physician Requests: Admit Condition: Stable Remington Saunders Aug 12, 2017 14:33
--- NOTE | 2017-08-12 14:48 | PD ---
Physical Exam Date Seen by Provider: Aug 12, 2017 Narrative Patient presents with dyspnea for about a week. It is getting progressively worse. Data Data Last Documented VS Vital Signs Date Time Temp Pulse Resp B/P (MAP) Pulse Ox O2 Delivery O2 Flow Rate FiO2 08/12/17 14:33 94 Nasal Cannula 2.00 08/12/17 13:43 08/12/17 12:44 98.7 75 18 Orders Orders Complete Blood Count With Diff (08/12/17 12:54) Comprehensive Metabolic Panel (08/12/17 12:54) B-Type Natriuretic Peptide (08/12/17 12:54) Act Partial Throm Time (Ptt) (08/12/17 12:54) Prothrombin Time / Inr (Pt) (08/12/17 12:54) Magnesium (Mg) (08/12/17 12:54) Ckmb (Isoenzyme) Profile (08/12/17 12:54) Troponin I (08/12/17 12:54) Electrocardiogram (08/12/17 12:54) Chest, Pa & Lat (08/12/17 12:54) CKMB (08/12/17 13:20) CKMB% (08/12/17 13:20) Iv Access Insert/Monitor (08/12/17 14:13) Ecg Monitoring (08/12/17 14:13) Oximetry (08/12/17 14:13) Oxygen Administration (08/12/17 14:13) Sodium Chloride 0.9% Flush (Ns Flush) (08/12/17 14:15) Furosemide Inj (Lasix Inj) (08/12/17 14:15) Ct Pulmonary Angiogram (08/12/17 14:36) Labs Laboratory Tests Test 08/12/17 13:20 White Blood Count 11.9 TH/MM3 Red Blood Count 5.20 MIL/MM3 Hemoglobin 14.3 GM/DL Hematocrit 42.0 % Mean Corpuscular Volume 80.7 FL Mean Corpuscular Hemoglobin 27.5 PG Mean Corpuscular Hemoglobin Concent 34.1 % Red Cell Distribution Width 14.0 % Platelet Count 177 TH/MM3 Mean Platelet Volume 9.3 FL Neutrophils (%) (Auto) 74.4 % Lymphocytes (%) (Auto) 14.4 % Monocytes (%) (Auto) 6.4 % Eosinophils (%) (Auto) 4.3 % Basophils (%) (Auto) 0.5 % Neutrophils # (Auto) 8.8 TH/MM3 Lymphocytes # (Auto) 1.7 TH/MM3 Monocytes # (Auto) 0.8 TH/MM3 Eosinophils # (Auto) 0.5 TH/MM3 Basophils # (Auto) 0.1 TH/MM3 CBC Comment DIFF FINAL Differential Comment Prothrombin Time 10.7 SEC Prothromb Time International Ratio 1.1 RATIO Activated Partial Thromboplast Time 25.8 SEC Blood Urea Nitrogen 35 MG/DL Creatinine 1.84 MG/DL Random Glucose 103 MG/DL Total Protein 7.0 GM/DL Albumin 3.4 GM/DL Calcium Level 9.2 MG/DL Magnesium Level 2.3 MG/DL Alkaline Phosphatase 68 U/L Aspartate Amino Transf (AST/SGOT) 61 U/L Alanine Aminotransferase (ALT/SGPT) 70 U/L Total Bilirubin 2.3 MG/DL Sodium Level 136 MEQ/L Potassium Level 3.8 MEQ/L Chloride Level 101 MEQ/L Carbon Dioxide Level 25.4 MEQ/L Anion Gap 10 MEQ/L Estimat Glomerular Filtration Rate 38 ML/MIN Total Creatine Kinase 334 U/L Creatine Kinase MB 11.1 NG/ML Creatine Kinase MB % 3.3 % Troponin I LESS THAN 0.02 NG/ML B-Type Natriuretic Peptide 487 PG/ML MDM Supervised Visit with NOELLE: Yes Narrative Course I, Dr. Regalado, have reviewed the advance practice practitioner's documentation and am in agreement, met with the patient face to face, made the diagnosis, and the medical decision making was done by me. *My assessment and Findings: Patient is sitting on the edge of the bed wearing oxygen. He does not appear to be in any acute respiratory distress at this time. However, he is currently on oxygen. His lung exam shows diffuse fine crackles compatible with chronic lung disease. Please see Kana Saunders PA-C's note for results of laboratory and radiographic evaluation, ED course, final diagnosis and disposition Condition: Stable Gabriela Regalado MD Aug 12, 2017 14:47
--- NOTE | 2017-08-12 17:02 | RADRPT ---
EXAM DATE/TIME: 08/12/2017 16:12 [facility] COMPARISON: No previous studies available for comparison. INDICATIONS : Shortness of breath for a week IV CONTRAST: 49 cc Visipaque (iodixanol) IV RADIATION DOSE: 20.85 CTDIvol (mGy) MEDICAL HISTORY : Hypertension. Lymphoma. SURGICAL HISTORY : CABG ENCOUNTER: Initial ACUITY: 1 day PAIN SCALE: 2/10 LOCATION: chest TECHNIQUE: Volumetric scanning of the chest was performed using a pulmonary embolism protocol MIP images were re constructed. Using automated exposure control and adjustment of the mA and/or kV according to patien t size, radiation dose was kept as low as reasonably achievable to obtain optimal diagnostic quality images. DICOM format image data is available electronically for review and comparison. Follow-up recommendations for detected pulmonary nodules are based at a minimum on nodule size and pa tient risk factors according to Fleischner Society Guidelines. FINDINGS: There is moderate interstitial edema. There is moderate right pleural effusion and small left pleura l effusion. Trace pericardial effusion is evident. There is no evidence for central pulmonary glide. Patient is the prominent left atrium. Sternal wires from previous bypass are noted Degenerative changes are present in the thoracic spine Some collateralization is seen around the left subclavian vein. CONCLUSION: Moderate congestive failure with bilateral pleural effusions larger on the right and moderate size on the left. No central pulmonary emboli. Juan Adhikari MD FACR on August 12, 2017 at 16:58 Board Certified Radiologist. This report was verified electronically.
--- NOTE | 2017-08-12 20:22 | HHI.HP ---
HPI Service [facility] Hospitalists Primary Care Physician Dominick Alston MD Admission Diagnosis CHF/Exertional Dyspnea Chief Complaint: dyspnea on exertion, orthopnea, recent CP w/u Travel History International Travel<30 Days: No Contact w/Intl Traveler <30 Da: No Traveled to Known Affected Are: No History of Present Illness 62-year-old Doug male with history of coronary artery disease and Hodgkin' s lymphoma presents to the emergency Department with worsening exertional dyspnea over the past several days. Patient was recently admitted for chest pain one week ago, receiving a full cardiac workup including sestamibi stress test on August 06, 2016 which demonstrated no reversible defects but some fixed defects from likely prior infarct. Interestingly his ejection fraction was noted as normal at 62% on the myocardial perfusion scan. He was having chest pain during that admission but has not had chest pain since the discharge. Patient is noted to have atrial fibrillation. He denies significant edema or swelling in his extremities. He denies any change in his diet of late, specifically no increased salt intake. No recent Medication changes. Patient states he can walk approximately 10 feet before becoming extremely winded with chest tightness but no significant pain. This has gotten progressively worse since he left the hospital. Patient is scheduled to meet with his emergency room nurse tomorrow, but felt so bad today he had to come in or even. No fever, chills, productive cough, abdominal pain, nausea, or diarrhea. EKG performed in triage shows atrial fibrillation with questionable ST changes in the lateral leads. It is noted the patient is not on a diuretic and no anticoagulation other than aspirin. Patient has no known drug allergies. Patient was given IV furosemide in the ER and has diuresed approximately 1-1/2 to 2 L. Ports he feels much improved and can breathe much easier since diuresis per Review of Systems Constitutional: COMPLAINS OF: Fatigue, DENIES: Diaphoretic episodes, Fever, Weight gain, Weight loss, Chills, Dizziness, Change in appetite, Night Sweats Endocrine: DENIES: Heat/cold intolerance, Polydipsia, Polyuria, Polyphagia Eyes: DENIES: Blurred vision, Diplopia, Eye inflammation, Eye pain, Vision loss , Photosensitivity, Double Vision Ears, nose, mouth, throat: DENIES: Tinnitus, Hearing loss, Vertigo, Nasal discharge, Oral lesions, Throat pain, Hoarseness, Ear Pain, Running Nose, Epistaxis, Sinus Pain, Toothache, Odynophagia Respiratory: COMPLAINS OF: Shortness of breath, DENIES: Apneas, Cough, Snoring , Wheezing, Hemoptysis, Sputum production Cardiovascular: COMPLAINS OF: Chest pain, Dyspnea on Exertion, PND, Orthopnea, DENIES: Palpitations, Syncope, Lower Extremity Edema, Claudication Gastrointestinal: DENIES: Abdominal pain, Black stools, Bloody stools, BRB per rectum, Constipation, Diarrhea, GERD, Nausea, Reflux, Vomiting, Difficulty Swallowing, Anorexia, See HPI Integumentary: DENIES: Abnormal pigmentation, Nail changes, Pruritus, Rash Hematologic/lymphatic: DENIES: Bruising, Lymphadenopathy Immunologic/allergic: DENIES: Eczema, Urticaria Neurologic: DENIES: Abnormal gait, Headache, Localized weakness, Paresthesias, Seizures, Speech Problems, Tremor, Poor Balance Psychiatric: DENIES: Anxiety, Confusion, Mood changes, Depression, Hallucinations, Agitation, Suicidal Ideation, Homicidal Ideation, Delusions, History of Bipolar, History of Schizophrenia Past Family Social History Past Medical History Coronary artery disease (10/26/13 cardiac catheterization (Dr. Bella) Conclusions 1. Severe three-vessel [place] coronary artery disease. 2. Right dominant system. 3. Patent left internal mammary artery to LAD and patent vein graft to obtuse marginal. 4. Totally occluded pain graft to the post tearing a lateral branch, which is a new finding. 5. Moderately diseased proximal portion of the vein graft to the posterior descending artery with fractional flow reserve determination indicated absence of hemodynamic only significant disease. 6. Normal left ventricular function with estimated ejection fraction 55%.) Hyperlipidemia Hypertension Atrial fibrillation Nodular Hodgkin's lymphoma Past Surgical History Coronary artery bypass graft 4 in 2005 Coronary artery stent Lymph node biopsy Colonoscopy done in 2016 revealing 2 polyps which were not cancerous Port placement 2015 Reported Medications Metoprolol Tartrate 50 Mg Tab 50 Mg PO BID Atorvastatin (Atorvastatin Calcium) 20 Mg Tab 20 Mg PO HS Aspirin 81 Mg Chew 81 Mg CHEW DAILY Amlodipine (Amlodipine Besylate) 10 Mg Tab 10 Mg PO DAILY Allergies: Coded Allergies: No Known Allergies (Verified Allergy, Unknown, 08/12/17) Family History Father, brother and 3 sisters with coronary artery disease Social History Tobacco and 33 years but prior to that smoked 1 pack per day for approximately 7 or 8 years He drinks alcohol but not regularly Denies illicit drug use Lives with his and has 2 adult children 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 Sitting on the bedside. Alert and oriented. Cooperative. SKIN: No rashes, ecchymoses or lesions. Cool and dry. HEAD: Atraumatic. Normocephalic. No temporal or scalp tenderness. EYES: Pupils equal round and reactive. Extraocular motions intact. No scleral icterus. No injection or drainage. ENT: Nose without bleeding, purulent drainage or septal hematoma. Airway patent. NECK: Trachea midline. No JVD or lymphadenopathy. Supple, nontender, no meningeal signs. CARDIOVASCULAR: Irregularly irregular with rate in the 80s on my exam. 3/6 systolic ejection murmur heard along the left sternal border and into the aortic space. RESPIRATORY: Few fine crackles in left base otherwise clear to auscultation with no wheeze. Good air movement. GASTROINTESTINAL: Abdomen soft, non-tender, nondistended. No hepato-splenomegaly , or palpable masses. No guarding. MUSCULOSKELETAL: Extremities without clubbing, cyanosis. Trace edema in the feet. No joint tenderness, effusion, or edema noted. No calf tenderness. NEUROLOGICAL: Awake and alert. Cranial nerves II through XII intact. Motor and sensory grossly within normal limits. Five out of 5 muscle strength in all muscle groups. Normal speech. Laboratory Laboratory Tests Test 08/12/17 13:20 White Blood Count 11.9 Red Blood Count 5.20 Hemoglobin 14.3 Hematocrit 42.0 Mean Corpuscular Volume 80.7 Mean Corpuscular Hemoglobin 27.5 Mean Corpuscular Hemoglobin Concent 34.1 Red Cell Distribution Width 14.0 Platelet Count 177 Mean Platelet Volume 9.3 Neutrophils (%) (Auto) 74.4 Lymphocytes (%) (Auto) 14.4 Monocytes (%) (Auto) 6.4 Eosinophils (%) (Auto) 4.3 Basophils (%) (Auto) 0.5 Neutrophils # (Auto) 8.8 Lymphocytes # (Auto) 1.7 Monocytes # (Auto) 0.8 Eosinophils # (Auto) 0.5 Basophils # (Auto) 0.1 CBC Comment DIFF FINAL Differential Comment Prothrombin Time 10.7 Prothromb Time International Ratio 1.1 Activated Partial Thromboplast Time 25.8 Blood Urea Nitrogen 35 Creatinine 1.84 Random Glucose 103 Total Protein 7.0 Albumin 3.4 Calcium Level 9.2 Magnesium Level 2.3 Alkaline Phosphatase 68 Aspartate Amino Transf (AST/SGOT) 61 Alanine Aminotransferase (ALT/SGPT) 70 Total Bilirubin 2.3 Sodium Level 136 Potassium Level 3.8 Chloride Level 101 Carbon Dioxide Level 25.4 Anion Gap 10 Estimat Glomerular Filtration Rate 38 Total Creatine Kinase 334 Creatine Kinase MB 11.1 Creatine Kinase MB % 3.3 Troponin I LESS THAN 0.02 B-Type Natriuretic Peptide 487 Result Diagram: 08/12/17 1320 08/12/17 1320 Imaging Last [address] Angiography 08/12/17 1436 Signed Impressions: Service Date/Time: Saturday, August 12, 2017 16:12 - CONCLUSION: Moderate congestive failure with bilateral pleural effusions larger on the right and moderate size on the left. No central pulmonary emboli. Juan Adhikari MD FACR Chest X-Ray 08/12/17 1254 Signed Impressions: Service Date/Time: Saturday, August 12, 2017 13:35 - CONCLUSION: Progression when compared to 08/06/17 thought to be congestive failure. Juan Adhikari MD FACR Caprini VTE Risk Assessment Caprini VTE Risk Assessment: Mod/High Risk (score >= 2) Caprini Risk Assessment Model Point Value = 1 Point Value = 2 Point Value = 3 Point Value = 5 Age 41-60 Minor surgery BMI > 25 kg/m2 Swollen legs Varicose veins or History of unexplained or recurrent spontaneous Oral contraceptives or hormone replacement Sepsis (< 1 month) Serious lung disease, including pneumonia (< 1 month) Abnormal pulmonary function Acute myocardial infarction Congestive heart failure (< 1 month) History of inflammatory bowel disease Medical patient at bed rest Age 61-74 Arthroscopic surgery Major open surgery (> 45 min) Laparoscopic surgery (> 45 min) Malignancy Confined to bed (> 72 hours) Immobilizing plaster cast Central venous access Age >= 75 History of VTE Family history of VTE Factor V Leiden Prothrombin [id number] Lupus anticoagulant Anticardiolipin antibodies Elevated serum homocysteine Heparin-induced thrombocytopenia Other congenital or acquired thrombophilia Stroke (< 1 month) Elective arthroplasty Hip, pelvis, or leg fracture Acute spinal cord injury (< 1 month) Prophylaxis Regimen Total Risk Factor Score Risk Level Prophylaxis Regimen 0-1 Low Early ambulation 2 Moderate Order ONE of the following: *Sequential Compression Device (SCD) *Heparin 5000 units SQ BID 3-4 Higher Order ONE of the following medications: *Heparin 5000 units SQ TID *Enoxaparin/Lovenox 40 mg SQ daily (WT < 150 kg, CrCl > 30 mL/min) *Enoxaparin/Lovenox 30 mg SQ daily (WT < 150 kg, CrCl > 10-29 mL/min) *Enoxaparin/Lovenox 30 mg SQ BID (WT < 150 kg, CrCl > 30 mL/min) AND/OR *Sequential Compression Device (SCD) 5 or more Highest Order ONE of the following medications: *Heparin 5000 units SQ TID (Preferred with Epidurals) *Enoxaparin/Lovenox 40 mg SQ daily (WT < 150 kg, CrCl > 30 mL/min) *Enoxaparin/Lovenox 30 mg SQ daily (WT < 150 kg, CrCl > 10-29 mL/min) *Enoxaparin/Lovenox 30 mg SQ BID (WT < 150 kg, CrCl > 30 mL/min) AND *Sequential Compression Device (SCD) Assessment and Plan Problem List: (1) Congestive heart failure ICD Codes: I50.9 - Heart failure, unspecified Status: Acute Plan: We'll continue diuresis. Check echocardiogram as last one was done in 2014. Strict intake and output. Consult his emergency room nurse, Dr. Bella (2) Hodgkin lymphoma ICD Codes: C81.90 - Hodgkin lymphoma Status: Chronic Plan: Follow with outpatient oncology. (3) CAD (coronary artery disease) ICD Codes: I25.10 - Atherosclerotic heart disease of [place] coronary artery without angina pectoris Status: Chronic Plan: Had recent myocardial perfusion scan which was negative for any acute infarct within the last 2 weeks. Consult his emergency room nurse. (4) Chronic a-fib ICD Codes: I48.2 - Chronic atrial fibrillation Status: Chronic Plan: Reportedly initially experiences after his bypass graft. Rate relatively well controlled. Chads 2 vasc score is 2 or 3 and likely would benefit from an anticoagulants such as warfarin or alternative oral anticoagulant. Will consult his emergency room nurse for opinion. We'll give 1 dose of Lovenox tonight in light of his renal insufficiency and possible upcoming interventions. (5) Hypertension ICD Codes: I10 - Essential (primary) hypertension Status: Chronic Plan: Fair control. Continue medication. (6) Hyperlipidemia ICD Codes: E78.5 - Hyperlipidemia, unspecified Status: Chronic Plan: Continue statin. Total cholesterol was 98 in May 2017 with an LDL of 39 and HDL of 42. (7) Renal insufficiency ICD Codes: N28.9 - Disorder of kidney and ureter, unspecified Status: Acute Plan: Baseline creatinine appears to be about 1.0 with current creatinine of 1.8. We'll monitor as he is undergoing diuresis. Code Status full Discussed Condition With Patient and ER provider. Physician Certification 2 Midnight Certification Type: Admission for Inpatient Services Order for Inpatient Services The services are ordered in accordance with Medicare regulations or non- Medicare payer requirements, as applicable. In the case of services not specified as inpatient-only, they are appropriately provided as inpatient services in accordance with the 2-midnight benchmark. Estimated LOS (days): 2 days is the estimated time the patient will need to remain in the hospital, assuming treatment plan goals are met and no additional complications. Post-Hospital Plan: Home Problem Qualifiers (1) Congestive heart failure: Qualified Codes: I50.9 - Heart failure, unspecified (2) Hodgkin lymphoma: (3) Hypertension: Qualified Codes: I10 - Essential (primary) hypertension Alec Izaguirre MD PhD Aug 12, 2017 20:22
[2017-08-12] MEDS ORDERED: ENOXAPARIN SODIUM 40 MG/0.4 ML SYRINGE SQ ONE (20:30)
[2017-08-12] MEDS ORDERED: SODIUM CHLORIDE 0.9% FLUSH 10 ML FLUSH IV FLUSH PRN (20:30)
[2017-08-12] MEDS: SODIUM CHLORIDE 0.9% FLUSH 10 ML FLUSH IV FLUSH SCH (21:00)
[2017-08-12] MEDS: METOPROLOL TARTRATE 50 MG TAB PO SCH (21:50)
[2017-08-12] MEDS: POTASSIUM CHLORIDE 20 MEQ CONTROLLED RELEASE TAB PO SCH (21:50)
[2017-08-13] VITALS (11 sets, daily range): BP systolic 114–155; BP diastolic 87–102; PULSE 59–89; RESP 18–20; TEMP 97.7–98.7; O2SAT 93–96
[2017-08-13] MEDS ORDERED: guaiFENesin/DEXTROMETHORPHAN 200 MG/20 MG/10 ML CUP PO PRN (00:30)
[2017-08-13] MEDS: guaiFENesin/DEXTROMETHORPHAN 200 MG/20 MG/10 ML CUP PO PRN ×3 (00:36→20:21)
[2017-08-13] MEDS: SODIUM CHLORIDE 0.9% FLUSH 10 ML FLUSH IV FLUSH SCH ×2 (07:46→20:21)
[2017-08-13] MEDS: FUROSEMIDE 40 MG/4 ML VIAL IVP SCH ×2 (08:26→17:04)
[2017-08-13] MEDS: ASPIRIN 81 MG CHEW TAB CHEW SCH (08:26)
[2017-08-13] MEDS: METOPROLOL TARTRATE 50 MG TAB PO SCH ×2 (08:26→20:21)
[2017-08-13] MEDS: ATORVASTATIN 80 MG TAB PO SCH (08:26)
[2017-08-13] MEDS: POTASSIUM CHLORIDE 20 MEQ CONTROLLED RELEASE TAB PO SCH ×2 (08:27→20:21)
[2017-08-13 08:41] LABS: ALBUMIN 3.2 GM/DL (3.4-5.0); AST (GOT) 53 U/L (15-37); BICARBONATE 25.9 MEQ/L (21.0-32.0); BLOOD UREA NITROGEN 34 MG/DL (7-18); CALCIUM 8.5 MG/DL (8.5-10.1); CHLORIDE 103 MEQ/L (98-107); CREATININE 1.44 MG/DL (0.60-1.30); GLOMERULAR FILTRATION RATE 50 ML/MIN (>89); GLUCOSE,RANDOM 93 MG/DL (74-106); SODIUM (NA) 139 MEQ/L (136-145)
[2017-08-13 08:42] LABS: ALT (GPT) 65 U/L (12-78)
[2017-08-13 08:46] LABS: ALKALINE PHOSPHATASE 64 U/L (45-117); TOTAL BILIRUBIN ADULT 1.9 MG/DL (0.2-1.0); TOTAL PROTEIN 6.8 GM/DL (6.4-8.2); TROPONIN I LESS THAN 0.02 NG/ML (0.02-0.05)
--- NOTE | 2017-08-13 09:01 | MB ---
cc: ANILA LEAVITT M.D. DATE OF CONSULTATION 08/13/2017 REASON FOR CONSULTATION Congestive heart failure, atrial fibrillation. HISTORY OF PRESENT ILLNESS The patient is a 62-year-old [place] male with a history of coronary artery disease, hypertension, hyperlipidemia, paroxysmal atrial fibrillation, who presented to the hospital with a several-day history of increasing shortness of breath. Chest x-ray and CT suggest acute congestive heart failure. The patient was just here in the chest pain center last week at which time a nuclear stress test reportedly showed no evidence for ischemia. The patient states for the past 3-4 days he has had a relatively constant chest "tightness" lasting up to several hours at a time. Over the last two nights he has had paroxysmal nocturnal dyspnea and has had to sleep upright at night. The patient denies pedal edema, lightheadedness, syncope, near-syncope, except for yesterday when he felt lightheaded most of the day. In the last 2-3 days he has also had minimal to mild fluttering palpitations. He reports compliance with his medications and a [id number] diet. PAST MEDICAL HISTORY 1. Paroxysmal atrial fibrillation 2004; only as a postoperative event after his bypass surgery. 2. Coronary artery disease status post bypass surgery December 2004 with a left internal mammary artery to the LAD and three separate vein grafts to the obtuse marginal, posterior descending artery, posterolateral branch. He is also status post stent of the [place] LAD using a 2.25 mm Cypher stent and stent of the [place] obtuse marginal using a 2.25 mm Cypher stent 12/20/2010. His last heart catheterization was 10/26/2013 showing severe three-vessel [place] coronary artery disease, patent obtuse marginal and LAD stents, patent left internal mammary artery to the LAD, patent vein graft to the obtuse marginal, patent vein graft to the posterior descending artery, totally occluded vein graft to the posterolateral branch. 3. Hyperlipidemia. 4. Hypertension. 5. Hodgkin's lymphoma, status post chemotherapy. MEDICATIONS His cardiac medications at home: 1. Metoprolol tartrate 50 mg b.i.d. 2. Atorvastatin 20 mg q.h.s. 3. Aspirin 81 mg q. day. 4. Amlodipine 10 mg q. day. ALLERGIES No known drug allergies. FAMILY HISTORY Noncontributory. SOCIAL HISTORY The patient is a former smoker. There is no history of alcohol abuse. REVIEW OF SYSTEMS As in the history of present illness otherwise negative or noncontributory. He also denies headache, visual changes, unilateral weakness or numbness, abdominal pain, melena, dyspepsia, bright red blood per rectum, fevers. PHYSICAL EXAMINATION VITAL SIGNS: On physical examination his blood pressure is 155/99 with a pulse of 70, respirations 20. GENERAL: In general he is a well-developed, well-nourished [place] male in no acute distress. HEENT/NECK: Jugular venous pressure is normal. Carotid pulses are 2+ bilaterally and without bruits. CHEST: Examination of the chest reveals diminished breath sounds at the bases. CARDIAC: On cardiac examination he has an irregularly irregular rhythm with a grade 1-2/6 systolic murmur along the left sternal border. No definite gallop is audible. ABDOMEN: On abdominal examination he has a soft, nontender abdomen. Bowel sounds are present. There is no definite hepatosplenomegaly. EXTREMITIES: Examination of extremities reveals no clubbing or cyanosis. There may be trace pretibial edema bilaterally. LABORATORY Laboratory data includes WBC 11.9, hemoglobin 14.3, platelets 177, potassium 3.8, BUN 35, creatinine 1.84, negative cardiac enzymes, brain natriuretic peptide level 487, INR 1.1. EKG EKG shows atrial fibrillation, rightward axis, nonspecific lateral ST and T-wave abnormality. IMAGING Chest x-ray shows findings consistent with congestive heart failure with moderate interstitial edema and bilateral pleural effusions. IMPRESSION Congestive heart failure, recurrent atrial fibrillation in a 62-year-old [place] male with a history of coronary artery disease, hypertension, hyperlipidemia, lymphoma, and atrial fibrillation only as a postoperative event after his bypass surgery. The patient remains in atrial fibrillation with controlled heart rates. His thromboembolic risk with his congestive heart failure and history of hypertension is at least moderately elevated. The precipitating factor for his congestive heart failure may be the atrial fibrillation. He has had somewhat atypical chest pains recently. Despite prolonged chest discomforts in the past few days cardiac enzymes are overall negative for myocardial infarction. He also had a nuclear stress test last week showing no definite ischemia. Echocardiogram is pending. He also has acute renal insufficiency which may be exacerbating the fluid retention. RECOMMENDATIONS 1. Await his 2-D echo. 2. Will review his nuclear stress test images from last week. 3. Continue beta jose miguel therapy; hold off on VIJAYA inhibitor with his renal insufficiency. 4. Continue intravenous Lasix diuresis. 5. Start warfarin. If his renal insufficiency significantly improves, consider using Eliquis or Xarelto. MD SHEA Aguilar/NANI /8:31 AM /8:47 AM MTDYogi
--- NOTE | 2017-08-13 10:39 | HHI.PR ---
Subjective Remarks coughing. Objective Vitals heart irreg lung diminished bases abd s/nt ext trace pitting Vital Signs Date Time Temp Pulse Resp B/P (MAP) Pulse Ox O2 Delivery O2 Flow Rate FiO2 08/13/17 09:08 Nasal Cannula 2.00 08/13/17 08:52 142/98 (113) 08/13/17 08:20 97.7 63 18 94 08/13/17 08:01 89 08/13/17 04:36 72 08/13/17 04:36 Nasal Cannula 2.00 08/13/17 04:00 98.7 75 20 155/99 (117) 93 08/13/17 00:00 98.0 70 20 114/87 (96) 93 08/13/17 00:00 Nasal Cannula 2.00 08/13/17 00:00 74 08/12/17 23:35 96 Nasal Cannula 2.00 08/12/17 22:00 Nasal Cannula 2.00 08/12/17 21:18 08/12/17 20:00 98.4 72 20 146/98 (114) 96 08/12/17 19:10 77 22 146/98 (114) 98 Nasal Cannula 2.00 08/12/17 17:35 77 22 160/94 (116) 99 Nasal Cannula 2.00 08/12/17 15:00 94 27 157/111 (126) 95 Nasal Cannula 2.00 08/12/17 14:33 94 Nasal Cannula 2.00 08/12/17 13:43 92 Room Air 08/12/17 12:44 98.7 75 18 175/107 (129) Result Diagram: 08/12/17 1320 08/13/17 0644 Imaging Last [address] Angiography 08/12/17 1436 Signed Impressions: Service Date/Time: Saturday, August 12, 2017 16:12 - CONCLUSION: Moderate congestive failure with bilateral pleural effusions larger on the right and moderate size on the left. No central pulmonary emboli. Juan Adhikari MD FACR Chest X-Ray 08/12/17 1254 Signed Impressions: Service Date/Time: Saturday, August 12, 2017 13:35 - CONCLUSION: Progression when compared to 08/06/17 thought to be congestive failure. Juan Adhikari MD FACR A/P Problem List: (1) Congestive heart failure ICD Codes: I50.9 - Heart failure, unspecified Status: Acute Plan: 1. presents with appearance of new acute chf. new afib and mild cyndi. pleural effusions right greater than left. seen by cardiology echo to eval LVF pending iv lasix and kcl ?thoracentesis if unable to improve sx's with diuretic (2) Hodgkin lymphoma ICD Codes: C81.90 - Hodgkin lymphoma Status: Chronic Plan: Follow with outpatient oncology. (3) CAD (coronary artery disease) ICD Codes: I25.10 - Atherosclerotic heart disease of [place] coronary artery without angina pectoris Status: Chronic Plan: Had recent myocardial perfusion scan which was negative for any acute infarct within the last 2 weeks. Consult his medical psychotherapist. (4) Chronic a-fib ICD Codes: I48.2 - Chronic atrial fibrillation Status: Chronic Plan: Reportedly initially experiences after his bypass graft. Rate relatively well controlled. Chads 2 vasc score is 2 or 3 and likely would benefit from an anticoagulants such as warfarin or alternative oral anticoagulant. Will consult his medical psychotherapist for opinion. (5) Hypertension ICD Codes: I10 - Essential (primary) hypertension Status: Chronic Plan: Fair control. Continue medication. (6) Hyperlipidemia ICD Codes: E78.5 - Hyperlipidemia, unspecified Status: Chronic Plan: Continue statin. Total cholesterol was 98 in May 2017 with an LDL of 39 and HDL of 42. (7) Renal insufficiency ICD Codes: N28.9 - Disorder of kidney and ureter, unspecified Status: Acute Plan: Baseline creatinine appears to be about 1.0 with current creatinine of 1.8. We'll monitor as he is undergoing diuresis. Problem Qualifiers (1) Congestive heart failure: Qualified Codes: I50.9 - Heart failure, unspecified (2) Hodgkin lymphoma: (3) Hypertension: Qualified Codes: I10 - Essential (primary) hypertension Corbin Mcnally MD Aug 13, 2017 10:39
[2017-08-13] MEDS ORDERED: WARFARIN SOD 7.5 MG TAB PO SCH (16:00)
--- NOTE | 2017-08-13 16:40 | ECHRPT ---
Indication: HEART FAILURE CONCLUSIONS Normal left ventricular size. Mild concentric left ventricular hypertrophy. The left ventricular systolic function is normal with an estimated ejection fraction in the range of 60-65%. Normal wall motion. The left atrial size is moderate dilated. The right atrial size is mildly dilated. Posterior mitral valve leaflet prolapse. Severe mitral valve regurgitation. The mitral valve regurgitation jet is directed anteriorly. There is mild to moderate tricuspid valve regurgitation. The estimated pulmonary arterial pressure is 80 mmHg. No pericardial effusion. Left pleural effusion is evident. BP: 146 / 98 HR: Rhythm: Sinus MEASUREMENTS (Male / Female) Normal Values Technical Quality:Fair 2D ECHO LV Diastolic Diameter PLAX 5.0 cm 4.2 - 5.9 / 3.9 - 5.3 cm LV Systolic Diameter PLAX 3.6 cm IVS Diastolic Thickness 1.2 cm 0.6 - 1.0 / 0.6 - 0.9 cm LVPW Diastolic Thickness 1.2 cm 0.6 - 1.0 / 0.6 - 0.9 cm LV Relative Wall Thickness 0.5 RV Internal Dim ED PLAX 2.9 cm LVOT Diameter 2.0 cm Aortic Root Diameter 3.4 cm LA Systolic Diameter LX 4.5 cm 3.0 - 4.0 / 2.7 - 3.8 cm M-MODE AV Cusp Separation MM 2.5 cm DOPPLER AV Peak Velocity 87.0 cm/s AV Peak Gradient 3.0 mmHg AV Mean Gradient 1.5 mmHg AV Velocity Time Integral 15.2 cm LVOT Peak Velocity 69.4 cm/s LVOT Peak Gradient 1.9 mmHg LVOT Velocity Time Integral 12.7 cm AV Area Cont Eq vti 2.6 cm AV Area Cont Eq pk 2.5 cm LV E' Lateral Velocity 10.8 cm/s LV E' Septal Velocity 7.6 cm/s TR Peak Velocity 419.0 cm/s TR Peak Gradient 70.2 mmHg Right Atrial Pressure 10.0 mmHg Pulmonary Artery Systolic Pressu 80.2 mmHg Right Ventricular Systolic Press 80.2 mmHg PV Peak Velocity 54.5 cm/s PV Peak Gradient 1.2 mmHg FINDINGS LEFT VENTRICLE Normal left ventricular size. Mild concentric left ventricular hypertrophy. The left ventricular systolic function is normal with an estimated ejection fraction in the range of 60-65%. Normal wall motion. RIGHT VENTRICLE Normal right ventricular size and systolic function. LEFT ATRIUM The left atrial size is moderate dilated. RIGHT ATRIUM The right atrial size is mildly dilated. ATRIAL SEPTUM No atrial level shunt is demonstrated by color flow Doppler interrogation. AORTA The aortic root and proximal ascending aorta are not well visualized. MITRAL VALVE Posterior mitral valve leaflet prolapse. Severe mitral valve regurgitation. The mitral valve regurgitation jet is directed anteriorly. AORTIC VALVE Trileaflet aortic valve. No aortic valve stenosis or regurgitation. TRICUSPID VALVE There is mild to moderate tricuspid valve regurgitation. The estimated pulmonary arterial pressure is 80 mmHg. PULMONARY VALVE Trivial pulmonary valve regurgitation. VESSELS The inferior vena cava is normal in size. PERICARDIUM No pericardial effusion. Left pleural effusion is evident. Alexandru Bella MD (Electronically Signed) Final Date:13 August 2017 16:39
--- NOTE | 2017-08-13 17:46 | EKG ---
Date Performed: 08/12/2017 Time Performed: 13:26:38 PTAGE: 62 years EKG: ATRIAL FIBRILLATION LEFT POSTERIOR FASCICULAR BLOCK LATERAL MYOCARDIAL INFARCTION ABNORMAL ECG PREVIOUS TRACING : 08/06/2017 15.41 DOCTOR: Annel Hernadez Interpretating Date/Time 08/13/2017 17:38:23
[2017-08-14] VITALS (13 sets, daily range): BP systolic 117–153; BP diastolic 76–98; PULSE 63–89; RESP 18–20; TEMP 97.4–98.3; O2SAT 93–97
[2017-08-14] MEDS: SODIUM CHLORIDE 0.9% FLUSH 10 ML FLUSH IV FLUSH SCH ×2 (07:25→21:00)
[2017-08-14] MEDS: ATORVASTATIN 80 MG TAB PO SCH (07:50)
[2017-08-14] MEDS: METOPROLOL TARTRATE 50 MG TAB PO SCH ×2 (07:50→21:50)
[2017-08-14] MEDS: POTASSIUM CHLORIDE 20 MEQ CONTROLLED RELEASE TAB PO SCH ×2 (07:50→21:50)
[2017-08-14] MEDS: ASPIRIN 81 MG CHEW TAB CHEW SCH (07:50)
[2017-08-14] MEDS: FUROSEMIDE 40 MG/4 ML VIAL IVP SCH ×2 (07:51→17:27)
--- NOTE | 2017-08-14 09:34 | HHI.PR ---
Subjective Remarks still sob/cough when lying flat Objective Vitals in chair heart reg. syst murmer rad to axilla lung diminished base ext no edema Vital Signs Date Time Temp Pulse Resp B/P (MAP) Pulse Ox O2 Delivery O2 Flow Rate FiO2 08/14/17 09:15 Room Air 08/14/17 08:08 97.4 77 18 153/93 (113) 95 08/14/17 04:00 97.9 77 18 147/88 (107) 96 08/14/17 04:00 Room Air 08/14/17 04:00 69 08/14/17 00:00 98.2 80 18 139/96 (110) 96 08/14/17 00:00 Room Air 08/14/17 00:00 84 08/13/17 20:00 98.3 68 20 133/97 (109) 95 08/13/17 20:00 78 08/13/17 20:00 Room Air 08/13/17 17:51 95 Nasal Cannula 2.00 08/13/17 16:02 59 08/13/17 16:00 97.7 65 18 148/102 (117) 96 08/13/17 12:00 98.1 67 18 138/89 (105) 95 08/13/17 12:00 73 Result Diagram: 08/12/17 1320 08/13/17 0644 Imaging Last [address] Angiography 08/12/17 1436 Signed Impressions: Service Date/Time: Saturday, August 12, 2017 16:12 - CONCLUSION: Moderate congestive failure with bilateral pleural effusions larger on the right and moderate size on the left. No central pulmonary emboli. Juan Adhikari MD FACR Chest X-Ray 08/12/17 1254 Signed Impressions: Service Date/Time: Saturday, August 12, 2017 13:35 - CONCLUSION: Progression when compared to 08/06/17 thought to be congestive failure. Juan Adhikari MD FACR A/P Problem List: (1) Congestive heart failure ICD Codes: I50.9 - Heart failure, unspecified Status: Acute Plan: 1. severe mitral valve regurgiation with valvular acute chf and atrial fibrillation. bilateral pleural effusions. right greater. 2. cyndi discussed with cardiology. will ask radiology for u/s guided right thoracentesis will plan for [facility] tomorrow cont diuretics hold off anticoagulation for now. (2) Mitral valve regurgitation ICD Codes: I34.0 - Nonrheumatic mitral (valve) insufficiency Status: Acute (3) Hodgkin lymphoma ICD Codes: C81.90 - Hodgkin lymphoma Status: Chronic Plan: Follow with outpatient oncology. (4) CAD (coronary artery disease) ICD Codes: I25.10 - Atherosclerotic heart disease of [place] coronary artery without angina pectoris Status: Chronic Plan: above (5) Chronic a-fib ICD Codes: I48.2 - Chronic atrial fibrillation Status: Chronic Plan: Reportedly initially experiences after his bypass graft. Rate relatively well controlled. Chads 2 vasc score is 2 or 3 and likely would benefit from an anticoagulants such as warfarin or alternative oral anticoagulant. 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 (6) Hypertension ICD Codes: I10 - Essential (primary) hypertension Status: Chronic Plan: Fair control. Continue medication. (7) Hyperlipidemia ICD Codes: E78.5 - Hyperlipidemia, unspecified Status: Chronic Plan: Continue statin. Total cholesterol was 98 in May 2017 with an LDL of 39 and HDL of 42. (8) Renal insufficiency ICD Codes: N28.9 - Disorder of kidney and ureter, unspecified Status: Acute Plan: Baseline creatinine appears to be about 1.0 with current creatinine of 1.8. We'll monitor as he is undergoing diuresis. Problem Qualifiers (1) Congestive heart failure: Qualified Codes: I50.9 - Heart failure, unspecified (2) Hodgkin lymphoma: (3) Hypertension: Qualified Codes: I10 - Essential (primary) hypertension Corbin Mcnally MD Aug 14, 2017 09:34
[2017-08-14 09:45] LABS: INTERNATIONAL NORMALIZED RATIO 1.1 RATIO; PROTHROMBIN TIME - PATIENT 11.4 SEC (9.8-11.6)
[2017-08-14 10:03] LABS: BICARBONATE 27.2 MEQ/L (21.0-32.0); CALCIUM 8.8 MG/DL (8.5-10.1); CREATININE 1.39 MG/DL (0.60-1.30)
--- NOTE | 2017-08-14 11:27 | PD.CARD.PN ---
Subjective Subjective Remarks Dyspnea much better. Still with orthopnea. No CP, palpitations, PND. Mild intermittent lightheadedness. Objective Medications Item Value Date Time Furosemide 40 mg 08/13/17 0900 (Lasix Inj) BID@/IVP 08/14/17 0751 Amlodipine 10 mg 08/13/17 0900 Besylate DAILY/PO 08/14/17 075 (Norvasc) Aspirin 81 mg 08/13/17 0900 (Aspirin Chew) DAILY/CHEW 08/14/17 075 Atorvastatin 80 mg 08/13/17 09 Calcium DAILY/PO 08/14/17 075 (Lipitor) Metoprolol 50 mg 08/12/17 2100 Tartrate BID/PO 08/14/17 075 (Lopressor) Current Medications Medications (Trade) Dose Ordered Sig/Sammy Route Start Time Stop Time Status Last Admin (NS Flush) 2 ml BID IV FLUSH 08/12/17 21:00 08/14/17 07:25 (NS Flush) 2 ml UNSCH PRN IV FLUSH 08/12/17 20:30 (Lasix Inj) 40 mg BID@ IVP 08/13/17 09:00 08/14/17 07:51 (KCl) 20 meq BID PO 08/12/17 21:00 08/14/17 07:50 (Norvasc) 10 mg DAILY PO 08/13/17 09:00 08/14/17 07:51 (Aspirin Chew) 81 mg DAILY CHEW 08/13/17 09:00 08/14/17 07:50 (Lopressor) 50 mg BID PO 08/12/17 21:00 08/14/17 07:50 (Lipitor) 80 mg DAILY PO 08/13/17 09:00 08/14/17 07:50 (Robitussin Dm 200-20 Mg/10 ml Liq) 10 ml Q6H PRN PO 08/13/17 00:45 08/13/17 20:21 Vital Signs / I&O Vital Signs Date Time Temp Pulse Resp B/P (MAP) Pulse Ox O2 Delivery O2 Flow Rate FiO2 08/14/17 09:15 Room Air 08/14/17 08:08 97.4 77 18 153/93 (113) 95 08/14/17 04:00 97.9 77 18 147/88 (107) 96 08/14/17 04:00 Room Air 08/14/17 04:00 69 08/14/17 00:00 98.2 80 18 139/96 (110) 96 08/14/17 00:00 Room Air 08/14/17 00:00 84 08/13/17 20:00 98.3 68 20 133/97 (109) 95 08/13/17 20:00 78 08/13/17 20:00 Room Air 08/13/17 17:51 95 Nasal Cannula 2.00 08/13/17 16:02 59 08/13/17 16:00 97.7 65 18 148/102 (117) 96 08/13/17 12:00 98.1 67 18 138/89 (105) 95 08/13/17 12:00 73 I/O 08/13/17 08/13/17 08/13/17 08/14/17 08/14/17 08/14/17 07:00 15:00 23:00 07:00 15:00 23:00 Intake Total 240 ml Balance 240 ml Intake Oral 240 ml # Voids 3 # Bowel Movements 2 Physical Exam GENERAL: Well developed, well nourished. No acute distress. HEENT: Jugular venous pressure 10 cm water. CHEST: Diminished breath sounds bases, right > left. CARDIAC: Irregular rate and rhythm without S3, S4. II/ HSM apex, LLSB. ABDOMEN: Soft, nontender, no hepatosplenomegaly. Bowel sounds present. EXTREMITIES: No clubbing, cyanosis, or edema. Laboratory Laboratory Tests Test 08/14/17 08:11 Prothrombin Time 11.4 SEC Prothromb Time International Ratio 1.1 RATIO Blood Urea Nitrogen 33 MG/DL Creatinine 1.39 MG/DL Random Glucose 135 MG/DL Calcium Level 8.8 MG/DL Sodium Level 140 MEQ/L Potassium Level 3.4 MEQ/L Chloride Level 103 MEQ/L Carbon Dioxide Level 27.2 MEQ/L Anion Gap 10 MEQ/L Estimat Glomerular Filtration Rate 52 ML/MIN Assessment and Plan Problem List: (1) Congestive heart failure ICD Codes: I50.9 - Heart failure, unspecified Status: Acute Plan: Improved since admission. Fairly good diuresis achieved. Appears CHF precipitated by what is likely acute severe mitral regurgitation, ? precipitated by papillary muscle dysfunction, ? from recent [place]. REC cath tomorrow in anticipation of MVR agree with thoracentesis continue IV furosemide, monitoring of BMP (2) CAD (coronary artery disease) ICD Codes: I25.10 - Atherosclerotic heart disease of [place] coronary artery without angina pectoris Status: Chronic Plan: Stable. No definite angina. No ischemia on recent nuclear stress test. For cath tomorrow if patient able to lie flat. (3) Hypertension ICD Codes: I10 - Essential (primary) hypertension Status: Chronic (4) Mitral valve regurgitation ICD Codes: I34.0 - Nonrheumatic mitral (valve) insufficiency Status: Acute Plan: Severe eccentric MR by echo. May be due to papillary muscle dysfunction , consider recent OH. For cath tomorrow. Discussed need for surgical intervention on his mitral valve. Code Status full code Discussed Condition With patient Problem Qualifiers (1) Congestive heart failure: Qualified Codes: I50.9 - Heart failure, unspecified (2) CAD (coronary artery disease): Qualified Codes: I25.10 - Atherosclerotic heart disease of [place] coronary artery without angina pectoris (3) Hypertension: Qualified Codes: I10 - Essential (primary) hypertension (4) Mitral valve regurgitation: Qualified Codes: I34.0 - Nonrheumatic mitral (valve) insufficiency Alexandru Bella MD Aug 14, 2017 11:27
[2017-08-14] MEDS ORDERED: diphenhydrAMINE HCL 50 MG CAP PO SCH (11:30)
[2017-08-14] MEDS ORDERED: MIDAZOLAM HCL 2 MG/2 ML VIAL IV PUSH SCH (11:30)
[2017-08-14] MEDS ORDERED: DIAZEPAM 10 MG TAB PO SCH (11:30)
[2017-08-14 13:11] LABS: INTERNATIONAL NORMALIZED RATIO 1.1 RATIO; PROTHROMBIN TIME - PATIENT 11.2 SEC (9.8-11.6)
[2017-08-14 13:14] LABS: ALBUMIN 3.6 GM/DL (3.4-5.0); DIRECT BILIRUBIN ADULT 0.3 MG/DL (0.0-0.2)
[2017-08-14 13:16] LABS: INDIRECT BILIRUBIN 1.7 MG/DL (0.0-0.8); TOTAL PROTEIN 7.3 GM/DL (6.4-8.2)
[2017-08-14] MEDS: SODIUM CHLOR 0.9% 1000 ML INJ 1,000 ML IV SCH ×2 (13:23→21:50)
[2017-08-14] MEDS ORDERED: LIDOCAINE HCL 1% 20 ML VIAL ONE (14:18)
--- NOTE | 2017-08-14 14:32 | RADRPT ---
EXAM DATE/TIME: 08/14/2017 14:06 [facility] COMPARISON: CHEST PA & LAT, August 12, 2017, 13:35. INDICATIONS : Post thoracentesis. MEDICAL HISTORY : None. SURGICAL HISTORY : CABG. ENCOUNTER: Initial ACUITY: 1 day PAIN SCORE: 0/10 LOCATION: Right chest FINDINGS: A single frontal expiratory view of the chest was performed. Minimal left basilar density. No eviden ce of pneumothorax. Mediastinal structures are in the midline. The cardio-mediastinal contours and bronchopulmonary markings are unremarkable for an expiratory exam . Osseous structures are intact. CONCLUSION: 1. Left basilar atelectasis. 2. No pneumothorax. Tony Lorenzo MD on August 14, 2017 at 14:29 Board Certified Radiologist. This report was verified electronically.
[2017-08-14] MEDS ORDERED: POTASSIUM CHLORIDE 20 MEQ CONTROLLED RELEASE TAB PO ONE (15:00)
[2017-08-14 16:02] LABS: PLEURAL FLUID RBC 2370 /MM3 (0-0); PLEURAL FLUID WBC 280 /MM3 (0-10)
[2017-08-14 16:03] LABS: PLEURAL FLUID BASO 1 %; PLEURAL FLUID EOS 2 %; PLEURAL FLUID HISTIOCYTES 19 %; PLEURAL FLUID LYMPHS 56 %; PLEURAL FLUID MESOTHELIAL 13 %; PLEURAL FLUID MONOS 2 %; PLEURAL FLUID POLYS (SEGS) 7 %
--- NOTE | 2017-08-14 16:12 | RADRPT ---
EXAM DATE/TIME: 08/14/2017 13:04 [facility] COMPARISON: No previous studies available for comparison. EXTERNAL COMPARISON: [facility], PET/CT Tumor, Nov [address] Chest 06/02/2015. PET CT Tumor 01/31/15, 10/04/14. CT Chest 08/25/14. INDICATIONS : Right pleural effusion. Prophylactic antibiotics were administered with appropriate pre-procedure timing. MEDICAL HISTORY : Cardiac disorders. Hypercholesterol. HTN. Hodgkins lymphoma. SURGICAL HISTORY : CABG Cardiac catheterization. ENCOUNTER: Initial ACUITY: 3 days PAIN SCORE: 0/10 LOCATION: Right chest FLUID: Total volume of 1300 cc of dark yellow. fluid was removed. Fluid was sent to lab for ordered studies. TECHNIQUE: 1. Ultrasound guidance for thoracentesis. 2. Thoracentesis. The risks, benefits, and alternatives to ultrasound guided thoracentesis were explained to the patien t in lay simple terms, including the risk of bleeding and infection. Written and verbal informed con sent was obtained. Appropriate area for thoracentesis was marked under ultrasound guidance with the patient in the uprig ht position. Overlying skin was prepped and draped in the usual sterile fashion and with local anest hetic, a dermatotomy was made with an 11 blade scalpel. A 6 [place] thoracentesis catheter was placed in the pleural space and fluid was removed. Catheter was then removed and a sterile dressing applie d. There were no immediate complications. The patient tolerated the procedure well and the left the ultrasound suite in stable condition. Chest radiograph is to be obtained. CONCLUSION: Uncomplicated ultrasound guided thoracentesis. Tony Lorenzo MD on August 14, 2017 at 16:09 Board Certified Radiologist. This report was verified electronically.
[2017-08-15] VITALS (11 sets, daily range): BP systolic 132–155; BP diastolic 76–116; PULSE 62–88; RESP 18–20; TEMP 97.4–98.6; O2SAT 92–97
[2017-08-15 07:14] LABS: INTERNATIONAL NORMALIZED RATIO 1.1 RATIO; PROTHROMBIN TIME - PATIENT 11.6 SEC (9.8-11.6)
[2017-08-15 07:36] LABS: BICARBONATE 26.9 MEQ/L (21.0-32.0); CREATININE 1.29 MG/DL (0.60-1.30)
[2017-08-15] MEDS: SODIUM CHLOR 0.9% 1000 ML INJ 1,000 ML IV SCH ×2 (08:49→17:59)
[2017-08-15] MEDS: ATORVASTATIN 80 MG TAB PO SCH (08:51)
[2017-08-15] MEDS: POTASSIUM CHLORIDE 20 MEQ CONTROLLED RELEASE TAB PO SCH ×2 (08:51→21:06)
[2017-08-15] MEDS: METOPROLOL TARTRATE 50 MG TAB PO SCH ×2 (08:52→21:06)
[2017-08-15] MEDS: SODIUM CHLORIDE 0.9% FLUSH 10 ML FLUSH IV FLUSH SCH ×2 (08:52→21:06)
[2017-08-15] MEDS: ASPIRIN 81 MG CHEW TAB CHEW SCH (08:52)
[2017-08-15] MEDS: FUROSEMIDE 40 MG/4 ML VIAL IVP SCH ×2 (08:52→17:00)
--- NOTE | 2017-08-15 09:56 | HHI.PR ---
Subjective Remarks doing ok. breathing better daughter present. Objective Vitals heart reg. systolic murmer to left axilla lung improved air entry abd s/nt ext trace edema Vital Signs Date Time Temp Pulse Resp B/P (MAP) Pulse Ox O2 Delivery O2 Flow Rate FiO2 08/15/17 08:00 97.4 88 18 153/116 (128) 94 08/15/17 08:00 82 08/15/17 08:00 Nasal Cannula 3.00 08/15/17 04:18 97.9 69 18 132/88 (103) 94 08/15/17 04:00 63 08/15/17 00:25 98.0 69 18 139/89 (106) 92 08/15/17 00:12 93 21 08/15/17 00:00 62 08/14/17 20:30 98.1 78 18 149/97 (114) 93 08/14/17 20:30 Room Air 08/14/17 20:00 80 08/14/17 18:13 94 08/14/17 16:21 97.6 67 18 149/84 (105) 94 08/14/17 16:07 79 08/14/17 14:30 63 20 121/76 (91) 96 08/14/17 14:15 98.0 66 20 117/87 (97) 97 08/14/17 13:42 97.7 72 20 143/97 (112) 96 08/14/17 12:24 98.3 67 18 142/98 (113) 97 08/15/17 08/15/17 08/16/17 15:00 23:00 07:00 Output Total 200 ml Balance -200 ml Output Urine Total 200 ml Result Diagram: 08/12/17 1320 08/15/17 0543 Imaging Last [address] Angiography 08/12/17 1436 Signed Impressions: Service Date/Time: Saturday, August 12, 2017 16:12 - CONCLUSION: Moderate congestive failure with bilateral pleural effusions larger on the right and moderate size on the left. No central pulmonary emboli. Juan Adhikari MD FACR Chest X-Ray 08/12/17 1254 Signed Impressions: Service Date/Time: Saturday, August 12, 2017 13:35 - CONCLUSION: Progression when compared to 08/06/17 thought to be congestive failure. Juan Adhikari MD FACR A/P Problem List: (1) Congestive heart failure ICD Codes: I50.9 - Heart failure, unspecified Status: Acute Plan: 1. severe mitral valve regurgiation with valvular acute chf and atrial fibrillation. bilateral pleural effusions. right greater. s/p right thoracentesis 08/14. 1350 ml. 2. cyndi. improving with diuresis discussed with cardiology. C today to eval mvr and coronaries...then will need CTS cont diuretics hold off anticoagulation for now. updated pt/daughter. (2) Mitral valve regurgitation ICD Codes: I34.0 - Nonrheumatic mitral (valve) insufficiency Status: Acute (3) Hodgkin lymphoma ICD Codes: C81.90 - Hodgkin lymphoma Status: Chronic Plan: Follow with outpatient oncology. (4) CAD (coronary artery disease) ICD Codes: I25.10 - Atherosclerotic heart disease of [place] coronary artery without angina pectoris Status: Chronic Plan: above (5) Chronic a-fib ICD Codes: I48.2 - Chronic atrial fibrillation Status: Chronic Plan: Reportedly initially experiences after his bypass graft. Rate relatively well controlled. Chads 2 vasc score is 2 or 3 and likely would benefit from an anticoagulants such as warfarin or alternative oral anticoagulant. 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 (6) Hypertension ICD Codes: I10 - Essential (primary) hypertension Status: Chronic Plan: Fair control. Continue medication. (7) Hyperlipidemia ICD Codes: E78.5 - Hyperlipidemia, unspecified Status: Chronic Plan: Continue statin. Total cholesterol was 98 in May 2017 with an LDL of 39 and HDL of 42. (8) Renal insufficiency ICD Codes: N28.9 - Disorder of kidney and ureter, unspecified Status: Acute Plan: Baseline creatinine appears to be about 1.0 with current creatinine of 1.8. We'll monitor as he is undergoing diuresis. Problem Qualifiers (1) Congestive heart failure: Qualified Codes: I50.9 - Heart failure, unspecified (2) Mitral valve regurgitation: Qualified Codes: I34.0 - Nonrheumatic mitral (valve) insufficiency (3) Hodgkin lymphoma: (4) CAD (coronary artery disease): Qualified Codes: I25.10 - Atherosclerotic heart disease of [place] coronary artery without angina pectoris (5) Hypertension: Qualified Codes: I10 - Essential (primary) hypertension Corbin Mcnally MD Aug 15, 2017 09:56
[2017-08-15] MEDS ORDERED: HEPARIN-NS/PF INJ 1,000 ML ONE (13:30)
[2017-08-15] MEDS ORDERED: MIDAZOLAM HCL 2 MG/2 ML VIAL ONE (13:31)
--- NOTE | 2017-08-15 14:41 | CATHPROC ---
[employer] HIS Report Study Information Study Number Admission Scheduled Start Study Start [id number] Aug 12 2017 5:30PM 08/14/2017 Aug 15 2017 1:28PM [place] Service Cardiac Catheterization Admit Source Facility Department Emergency department [facility] - [employer] Programmer Physician and Clinical Staff Initial Alexandru Jensen Keg Filler Sudheer Page RN Recorder Chio Chapin,RT(R) (BS) Scrub Marie Baez ,RT(R) Scrub Rupa Robbins,RT(R) Procedures Performed Procedure Location (Site) Vessel Name Angiogram LV LV Ventricle Coronary Angiograms LCA Left Coronary Coronary Angiograms RCA Right Coronary Coronary Angiograms FOLEY-LAD Left Coronary Coronary Angiograms SVG-LCX CIRC Coronary Angiograms SVG-OM CIRC Coronary Angiograms Gft. Stump 1 SVG Graft Coronary Angiograms SVG-RPDA Left Coronary L Heart Cath Equipment Time Javascript Engineer Description Size Mfg Part Number Used/Scraped TRANSDUCER, TRUWAVE [id number] 13:46 GILBERT NEGRETE * Used W/STOCKCOCK *[id number] 14:28 CARDIVA MEDICAL VASCADE, FR6 CLOSURE SYSTEM FR 6\7 Used *[id number] *[id number] 534-660T *[id number] 534-620T *[id number] 534-642T *[id number] PIGTAIL ANG. 145 INFINITI 534-652S CATHETER *[id number] 13:46 MEDLINE INDUSTRIES PACK, CCL CUSTOM * Used *[id number] 13:46 MEDLINE PACER PEN, SKIN DUAL W/ RULER * Used *[id number] 13:46 Eponym MEDICAL SHEATH, FR6.5 PRELUDE 11CM FR 6.5 038ACT Used *[id number] 13:46 Eponym MEDICAL WIRE, 3MMJ .035 180CM 180CM Used *[id number] 14:13 Eponym MEDICAL WIRE, EXCHANGE 260CM 3MMJ 260CM Used *[id number] 13:46 NAMIC MANIFOLD, 4 PORT * Used *[id number] 13:46 NYCOMED OMNIPAQUE, 350 MG, 150ML 150ML [id number] Used [id number] 13:46 [place] MEDICAL BLANKET,WARM AIR CCL * Used *[id number] History: Current Medications Medication Dosage/Unit Route Frequency Last Date/Time Taken Beta Jelly Statins (any) ASA History: Allergies Allergy Reaction No Known Allergies History: Risk Factors Family History of Hypertension Dyslipidemia Previous PR Previous Heart Failure Premature CAD No No No No Yes Prior Valve Prior PCI Prior CABG Prior CABGDate Surgery No Yes Yes 07/22/2005 Cerebrovascular Peripheral Artery Chronic Lung On Dialysis Diabetes Disease Disease Disease No No No No No History: Symptoms/Diagnosis Selection Items SOB History: Stress Tests Stress or Imaging Studies Performed No History: Other Current Smoker Method Quit Packs a Day Years Used Pack Years No Cigarettes 33 Years Ago 1 7 7 Labs Hgb (g/dl) Hct (%) Platelets (thousands) 11.60-17.00 35.00-51.00 150.00-450.00 14.0 42 177 Glucose (mg/dl) BUN (mg/dl) Creatinine (mg/dl) BUN:Creatinine (1:x) 74.00-106.00 7.00-18.00 0.50-1.30 10.00-20.00 96 29 1.3 22.3 Na (meq/l) K (meq/l) 136.00-145.00 3.50-5.10 143 3.9 INR (PTT:PT) 0.90-1.10 1.1 CPK-MB (ng/ML) 0.50-3.60 Not Drawn Medication Medication Total Dose (Bolus/Oral) Medication Total Dosage/Unit 1% XYLOCAINE 20 mL VERSED 1 mg Medications (Bolus/Oral) Medication Time Given Dosage/Unit Administered By Reason 1% XYLOCAINE 08/15/2017 1:56:22 PM 20 mL Alexandru Bella 20 mL 1% XYLOCAINE given in lab by Alexandru Bella in Right Groin via Subcutaneous. VERSED 08/15/2017 1:57:19 PM 1 mg Sudheer Page 1 mg VERSED given in lab by Sudheer Page RN in Left Antecubital via Peripheral IV. Medication (Drip) Medication Time Given Dosage/Unit Concentration/Unit Diluent (ml) Solution IV Solutions 08/15/2017 1:34:05 PM 0 mL (IV) 1000 NaCl .9 IV Solutions given in lab by Sudheer Page RN in Left Antecubital via Peripheral IV. Pump/Drip Flow = 30 ml/hr using NaCl .9. Initial Case Assessment Cardiovascular HR Rhythm NIBP Chest Pain 66 reg 130/87 0 Edema Present Skin color Skin None Normal Warm Dry Circulatory - Right Pulses Dorsalis Pedis Femoral 2 2 Scale (0,1,2,3,4,d) Circulatory - Left Pulses Dorsalis Pedis Femoral 2 2 Scale (0,1,2,3,4,d) Circulatory - Lower Extremities Color Lower Right Color Lower Left Normal Normal Neurological State Oriented to time-place- Alert Moves all extremities person Respiration - General Respiration Rate SpO2 (%) (B/min) 14 99 Chronological Log Time Study Chronological Log 13:28:08 Patient arrived via Bed. 13:28:09 Patient Name, D.O.B, / Armband Verified By R.N. 13:28:09 Consent signed by the physician and the patient and verified by the [employer] staff. 13:28:10 Pre-op and post- op instructions given; patient acknowledges understanding of instruction s. 13:28:12 Verbal Stimulation=2 Physical Stimulation=2 Airway=2 Respiration=2 TOTAL=8. (0=absent, 1= limited, 2=present) 13:33:52 Immediate Presedation assesment performed by physician. 13:33:54 Patient has been NPO for More than 6Hrs. 13:33:55 Skin Breakdown none per pt 13:33:59 Patient Warmer Placed on the Table. 13:34:01 Fabien Prominences Protected 13:34:02 A # 20 IV was noted in the Antecubital (left). Grade = 0 IV Solutions given in lab by Sudheer Page, RN in Left Antecubital via Peripheral IV. Pump/Drip Flow = 30 ml/hr using 13:34:05 NaCl .9. 13:34:15 History and physical on the chart or being dictated. Assessment: Initial Case, HR=66 BPM, Rhythm=reg, RQTZ=750/87 mmhg, Chest Pain=0, Edema=None, Co malina=Normal, Skin = Warm, Dry Right Pulses: Tera Ped=2, Femoral=2 Left Pulses: Tera Ped=2, Femoral=2 13:34:21 Lower Right Extremities: Color=Normal Lower Left Extremities: Color=Normal Neurological: State=Alert, Ox3, ROSAS Respiration: Resp=14 B/min, SpO2=99 % Vitals capture started with the following parameters, Patient=Adult, Interval=5 min, Initial Pr qjbmbs=935 mmHg, 13:37:50 Deflation Rate=5 mmHg, Cuff placed on Left Arm 13:38:28 HR=66 bpm, RCEK=270/87 mmhg, EqU9=222.0 %, Resp=46 B/min, Pain=0, Juma=10, Mcbride=2 13:42:21 Reference ECG taken 13:43:23 HR=60 bpm, VXLL=939/89 mmhg, TcF1=688.0 %, Resp=43 B/min, Pain=0, Juma=10, Mcbride=2 13:43:52 Bilateral groins prepped with 2% chlorhexidine, and draped after a 3 minute waiting time. 13:46:18 MD paged 13:48:24 HR=69 bpm, UWCW=402/97 mmhg, SpO2=99.0 %, Resp=32 B/min, Pain=0, Juma=10, Mcbride=2 13:52:05 Pressure channel 1 zeroed. 13:52:25 Pressure channel 1 zeroed. 13:52:32 MD arrived 13:53:56 HR=78 bpm, UIFV=816/91 mmhg, SpO2=98.0 %, Resp=26 B/min, Pain=0, Juma=10, Mcbride=2 Time Out. Correct patient, correct procedure, correct physician, power injector not loaded with contrast with surgical 13:55:28 team present. Time Out Concurred by MD and individual staff in procedure. 13:55:44 Case Start 13:56:22 20 mL 1% XYLOCAINE given in lab by Alexandru Bella in Right Groin via Subcutaneous. 13:57:19 1 mg VERSED given in lab by Sudheer Page, RN in Left Antecubital via Peripheral IV. 13:58:14 Access site was Right Femoral Artery. 13:58:20 A SHEATH, FR6.5 PRELUDE 11CM FR 6.5 was advanced into the Fem Art (right) using the Percuta neous technique. 13:58:26 HR=66 bpm, JIUL=900/96 mmhg, SpO2=99.0 %, Resp=25 B/min, Pain=0, Juma=10, Mcbride=2 A JL 4.0 INFINITI CATHETER FR 6 was advanced over a wire. OMNIPAQUE, 350 MG, 150ML 150ML was us ed for 13:58:58 injections. 13:59:53 The LCA was injected and visualized at various angles. OMNIPAQUE, 350 MG, 150ML 150ML used . 14:00:36 Catheter was removed A 3DRC INFINITI CATHETER FR 6 was advanced over a wire. OMNIPAQUE, 350 MG, 150ML 150ML was used for 14:00:37 injections. 14:01:26 The RCA was injected and visualized at various angles. OMNIPAQUE, 350 MG, 150ML 150ML used . 14:02:30 The SVG-LCX was injected and visualized at various angles. OMNIPAQUE, 350 MG, 150ML 150ML u sed. 14:04:00 HR=72 bpm, PSLB=678/95 mmhg, SpO2=94.0 %, Resp=41 B/min, Pain=0, Juma=10, Mcbride=2 14:08:51 HR=70 bpm, ZBRU=657/88 mmhg, SpO2=94.0 %, Resp=21 B/min, Pain=0, Juma=10, Mcbride=2 Recorded Pressure: Ao, HR=64, Condition=Condition 1 14:11:27 (Aorta) Ao 118/82/98 After removing the current catheter a CANDELARIA INFINITI CATHETER FR 6 was advanced over a WIRE, EXCH DYLAN 260CM 14:12:28 3MMJ 260CM. 14:13:23 HR=69 bpm, OQJA=467/96 mmhg, SpO2=92.0 %, Resp=18 B/min, Pain=0, Juma=10, Mcbride=2 14:18:06 The FOLEY-LAD was injected and visualized at various angles. OMNIPAQUE, 350 MG, 150ML 150ML used. 14:18:59 HR=73 bpm, BEDE=244/87 mmhg, SpO2=93.0 %, Resp=28 B/min, Pain=0, Juma=10, Mcbride=2 After removing the current catheter a MPA-2 INFINITI CATHETER FR 6 was advanced over a WIRE, 3M MJ .035 180CM 14:19:02 180CM. 14:20:07 The SVG-OM was injected and visualized at various angles. OMNIPAQUE, 350 MG, 150ML 150ML us ed. 14:20:43 Catheter was removed A MPA-2 INFINITI CATHETER FR 6 was advanced over a wire. OMNIPAQUE, 350 MG, 150ML 150ML was use d for 14:20:55 injections. 14:22:49 The SVG-RPDA was injected and visualized at various angles. OMNIPAQUE, 350 MG, 150ML 150ML used. 14:23:25 HR=66 bpm, UQHX=175/90 mmhg, SpO2=92.0 %, Resp=18 B/min, Pain=0, Juma=10, Mcbride=2 14:23:38 The Gft. Stump 1 was injected and visualized at various angles. OMNIPAQUE, 350 MG, 150ML 15 0ML used. 14:25:10 After removing the current catheter a PIGTAIL ANG. 145 INFINITI CATHETER FR 6 was advanced over a wire. Recorded Pressure: LV, HR=68, Condition=Condition 1 14:25:41 (Left Ventricle) LV 118/21/31 14:26:40 The LV was injected at 12 cc/sec for a total of 42. OMNIPAQUE, 350 MG, 150ML 150ML used. Recorded Pressure: LV, Ao, HR=81, Condition=Condition 1 14:27:07 (Left Ventricle) LV 112/30/35, (Aorta) Ao 132/83/103 14:27:43 Catheter was removed 14:28:56 An injection in the Fem Art (right) was made through the SHEATH, FR6.5 PRELUDE 11CM FR 6.5. 14:28:57 HR=57 bpm, LCUX=962/94 mmhg, SpO2=91.0 %, Resp=22 B/min, Pain=0, Juma=10, Mcbride=2 14:33:13 Case End 14:33:14 VASCADE, FR6 CLOSURE SYSTEM FR 6\7 placement in the Fem Art (right) 14:33:32 HR=83 bpm, RDOD=231/94 mmhg, SpO2=93.0 %, Resp=24 B/min, Pain=0, Juma=10, Mcbride=2 14:33:39 Catheter(s) removed without difficulty 14:33:47 No case complications noted. 14:33:50 Bedside Report will be given. 14:33:51 Implantable Device card placed in patient's chart. 14:33:54 A Left Heart Cath was performed. 14:34:10 DOCU called. Spoke to Bravo. 14:38:31 HR=70 bpm, MTBF=328/93 mmhg, SpO2=93.0 %, Resp=22 B/min, Pain=0, Juma=10, Mcbride=2 14:39:35 Sterile dressing applied to site 14:40:29 Vitals capture stopped. 14:42:34 Patient moved to [facility] End Study - Contrast Media Used In Study Contrast Total Opened (mL) Total Used (mL) Total Wasted (mL) Omnipaque 120 120 0 End Study - Maximum Contrast Load Max Contrast Load (mL) 338.1 End Study - Radiation Exposure Fluoro Time (minutes) 13.8 End Study - Sheaths Sheaths Pulled By Sheath Hold Time (min) Rupa Robbins End Study - Patient Disposition Complications Transferred To Interventional Outcome No [employer] No attempt made
[2017-08-15] MEDS ORDERED: SODIUM CHLOR 0.9% 1000 ML INJ 1,000 ML IV SCH (14:46)
--- NOTE | 2017-08-15 14:46 | PD.CARD.PN ---
Subjective Subjective Remarks Dyspnea much better. Less orthopnea as well. No CP, palpitations, PND. Objective Medications Item Value Date Time Metoprolol 100 mg 08/14/17 2100 Tartrate BID/PO 08/15/17 08 (Lopressor) Furosemide 40 mg 08/13/17 0900 (Lasix Inj) BID@/IVP 08/15/17 0852 Amlodipine 10 mg 08/13/17 0900 Besylate DAILY/PO 08/15/17 0851 (Norvasc) Aspirin 81 mg 08/13/17 0900 (Aspirin Chew) DAILY/CHEW 08/15/17 08 Atorvastatin 80 mg 08/13/17 0900 Calcium DAILY/PO 08/15/17 0851 (Lipitor) Potassium Chloride 20 meq 08/12/17 2100 (KCl) BID/PO 08/15/17 08 Current Medications Medications (Trade) Dose Ordered Sig/Sammy Route Start Time Stop Time Status Last Admin (NS Flush) 2 ml BID IV FLUSH 08/12/17 21:00 08/15/17 08:52 (NS Flush) 2 ml UNSCH PRN IV FLUSH 08/12/17 20:30 (Lasix Inj) 40 mg BID@ IVP 08/13/17 09:00 08/15/17 08:52 (KCl) 20 meq BID PO 08/12/17 21:00 08/15/17 08:51 (Norvasc) 10 mg DAILY PO 08/13/17 09:00 08/15/17 08:51 (Aspirin Chew) 81 mg DAILY CHEW 08/13/17 09:00 08/15/17 08:52 (Lipitor) 80 mg DAILY PO 08/13/17 09:00 08/15/17 08:51 (Robitussin Dm 200-20 Mg/10 ml Liq) 10 ml Q6H PRN PO 08/13/17 00:45 08/13/17 20:21 Sodium Chloride 1,000 ml @ 100 mls/hr Q10H IV 08/14/17 13:00 08/19/17 12:59 08/15/17 08:49 (Benadryl) 50 mg STORE SALES MANAGER PO 08/14/17 11:30 08/18/17 11:29 08/15/17 12:50 (Valium) 10 mg STORE SALES MANAGER PO 08/14/17 11:30 08/18/17 11:29 08/15/17 12:49 (Versed Inj) 1 mg STORE SALES MANAGER IV PUSH 08/14/17 11:30 08/18/17 11:29 (Lopressor) 100 mg BID PO 08/14/17 21:00 08/15/17 08:52 Vital Signs / I&O Vital Signs Date Time Temp Pulse Resp B/P (MAP) Pulse Ox O2 Delivery O2 Flow Rate FiO2 08/15/17 11:29 21 08/15/17 08:00 97.4 88 18 153/116 (128) 94 08/15/17 08:00 82 08/15/17 08:00 Nasal Cannula 3.00 08/15/17 04:18 97.9 69 18 132/88 (103) 94 08/15/17 04:00 63 08/15/17 00:25 98.0 69 18 139/89 (106) 92 08/15/17 00:12 93 21 08/15/17 00:00 62 08/14/17 20:30 98.1 78 18 149/97 (114) 93 08/14/17 20:30 Room Air 08/14/17 20:00 80 08/14/17 18:13 94 08/14/17 16:21 97.6 67 18 149/84 (105) 94 08/14/17 16:07 79 I/O 08/14/17 08/14/17 08/14/17 08/15/17 08/15/17 08/15/17 07:00 15:00 23:00 07:00 15:00 23:00 Intake Total 240 ml 940 ml 600 ml Output Total 1300 ml 200 ml Balance 240 ml 940 ml -700 ml -200 ml Intake Oral 240 ml 940 ml 600 ml Output Urine Total 1300 ml 200 ml # Voids 3 2 # Bowel Movements 2 0 0 Physical Exam GENERAL: Well developed, well nourished. No acute distress. HEENT: Jugular venous pressure 10 cm water. CHEST: Diminished breath sounds bases. CARDIAC: Irregular rate and rhythm without S3, S4. II/ HSM apex, LLSB. ABDOMEN: Soft, nontender, no hepatosplenomegaly. Bowel sounds present. EXTREMITIES: No clubbing, cyanosis, or edema. Laboratory Laboratory Tests Test 08/15/17 05:43 Prothrombin Time 11.6 SEC Prothromb Time International Ratio 1.1 RATIO Blood Urea Nitrogen 29 MG/DL Creatinine 1.29 MG/DL Random Glucose 96 MG/DL Calcium Level 8.0 MG/DL Sodium Level 143 MEQ/L Potassium Level 3.9 MEQ/L Chloride Level 109 MEQ/L Carbon Dioxide Level 26.9 MEQ/L Anion Gap 7 MEQ/L Estimat Glomerular Filtration Rate 57 ML/MIN Assessment and Plan Problem List: (1) Congestive heart failure ICD Codes: I50.9 - Heart failure, unspecified Status: Acute Plan: Much improved since admission. Good diuresis achieved. Also s/p thoracentesis. Appears CHF precipitated by what is likely acute severe mitral regurgitation, ? precipitated by papillary muscle dysfunction. No definite changes seen in coronary/graft anatomy however. REC continue diuresis CV surgery consultation for MVR (2) Mitral valve regurgitation ICD Codes: I34.0 - Nonrheumatic mitral (valve) insufficiency Status: Acute Plan: Severe eccentric MR by echo, severe MR by left ventriculography. MR likely precipitating factor for CHF. Consult CV surgery. (3) CAD (coronary artery disease) ICD Codes: I25.10 - Atherosclerotic heart disease of [place] coronary artery without angina pectoris Status: Chronic Plan: Stable. No definite angina. No ischemia on recent nuclear stress test. Unchanged coronary/graft anatomy on cath today compared to last cath with 3 or 4 grafts patent. Continue medical therapy of his CAD. (4) Hypertension ICD Codes: I10 - Essential (primary) hypertension Status: Chronic Plan: BP at cath normal ~130/70's. Continue to monitor. Code Status full code Problem Qualifiers (1) Congestive heart failure: Qualified Codes: I50.9 - Heart failure, unspecified (2) Mitral valve regurgitation: Qualified Codes: I34.0 - Nonrheumatic mitral (valve) insufficiency (3) CAD (coronary artery disease): Qualified Codes: I25.10 - Atherosclerotic heart disease of [place] coronary artery without angina pectoris (4) Hypertension: Qualified Codes: I10 - Essential (primary) hypertension Alexandru Bella MD Aug 15, 2017 14:46
[2017-08-15] MEDS ORDERED: ATROPINE SULFATE 1 MG/ML VIAL IV PRN (15:00)
[2017-08-15] MEDS ORDERED: HEPARIN SODIUM - IV 10,000 UNITS/10 ML VIAL IV PUSH ONE (15:00)
[2017-08-15] MEDS ORDERED: SODIUM CHLOR 0.9% 250 ML INJ 250 ML IV PRN (15:00)
[2017-08-15] MEDS ORDERED: IOHEXOL 350 MG/ML 50 ML BTL (for Cath Lab) OTHER ONE (15:10)
[2017-08-15] MEDS ORDERED: IOHEXOL 350 MG/ML 100 ML BTL (for Cath Lab) OTHER ONE (15:10)
[2017-08-15] MEDS ORDERED: RESP: ALBUTEROL 2.5 MG/IPRATROPIUM 0.5 MG NEB (PRN) ONE (16:55)
[2017-08-15] MEDS ORDERED: HEPARIN SODIUM - IV 10,000 UNITS/10 ML VIAL IV PUSH PRN ×2 (21:00)
[2017-08-15] MEDS: HEPARIN-D5W 25,000 U/250 ML 250 ML IV PRN (21:08)
[2017-08-15] MEDS ORDERED: TEMAZEPAM 15 MG CAP PO ONE (21:45)
[2017-08-16] VITALS (12 sets, daily range): BP systolic 0–168; BP diastolic 90–98; PULSE 62–79; RESP 18–24; TEMP 97.7–98.4; O2SAT 91–97
[2017-08-16 02:47] LABS: BICARBONATE 27.5 MEQ/L (21.0-32.0); CREATININE 1.25 MG/DL (0.60-1.30)
[2017-08-16 03:05] LABS: INTERNATIONAL NORMALIZED RATIO 1.1 RATIO; PROTHROMBIN TIME - PATIENT 11.2 SEC (9.8-11.6)
[2017-08-16] MEDS: SODIUM CHLOR 0.9% 1000 ML INJ 1,000 ML IV SCH ×2 (05:00→15:00)
--- NOTE | 2017-08-16 05:11 | MA ---
cc: ANILA LEAVITT M.D. DATE 08/15/2017 PROCEDURE Left heart catheterization, selective coronary angiography, graft angiography, left ventriculography. PROCEDURE NOTES The patient was brought to the cardiac catheterization laboratory in a fasting state after having signed informed consent. The right groin was prepped and draped as per policy and anesthetized with 1% lidocaine. Arterial access was obtained via the right femoral artery and a 6-Chilean sheath placed. Coronary arteriography was performed using 6-Chilean Harmeet left 4.0 and right Progressive catheters. The left internal mammary artery was very difficult to engage and was sub-selectively engaged with an CANDELARIA catheter. The vein graft to the obtuse marginal was engaged with an LCB catheter. The vein graft to the posterior descending artery and vein graft to the posterolateral branch were engaged with a multipurpose catheter. Left ventriculography was done using a standard 6-Chilean pigtail. There were no apparent immediate complications. His arteriotomy site was closed with Vascade. HEMODYNAMIC RESULTS Left ventricle 112 with an end-diastolic pressure of 22. Aorta 132/83 with a mean of 103. There was no significant transvalvular aortic gradient on pullback of the pigtail catheter. CORONARY ARTERIOGRAPHY The left main has minimal luminal irregularities distally. The left anterior descending is totally occluded proximally. The left circumflex is totally occluded proximally. The right coronary artery is a relatively large dominant vessel which is diffusely diseased. There is no normal vessel so it is somewhat difficult to quantify the degree of stenosis. There is likely up to 60% proximal disease, 50% mid-disease and probably at least 30% distally just past the takeoff of the posterior descending artery, which appears to be a small vessel with mild ostial disease. GRAFT ANGIOGRAPHY The left internal mammary artery to the LAD appears to be widely patent. There may be a stent in the [place] LAD distal to the anastomosis site, and the stent is widely patent. The vein graft to the obtuse marginal is widely patent. There may be a stent in the [place] obtuse marginal just distal to the anastomosis site, and the stent is widely patent. A more medial branch of the obtuse marginal has 60-70% ostial to proximal disease. Just after the takeoff of this branch, the obtuse marginal also has up to 50% stenosis. The vein graft to the posterior descending artery is widely patent. There are mild luminal irregularities throughout its course with possibly up to 20% disease proximally. The vein graft to the posterolateral branch is totally occluded at its origin. LEFT VENTRICULOGRAPHY Contrast injection of the left ventricle reveals no segmental wall motion abnormalities. Ejection fraction is estimated at 65%. There is severe mitral regurgitation. CONCLUSIONS 1. Moderate to severe three-vessel coronary artery disease. 2. Right dominant system. 3. Patent 3/4 bypass grafts including a left internal mammary artery to the LAD, vein graft to the obtuse marginal, vein graft to the posterior descending artery. The vein graft to the posterolateral branch is chronically totally occluded. 4. Normal left ventricular function with estimated ejection fraction of 65%. 5. Severe mitral regurgitation. Anila Leavitt MD G[facility]/SSB /2:32 PM /4:59 AM ZULEIKA
--- NOTE | 2017-08-16 07:35 | PD.CARD.PN ---
Subjective Subjective Remarks Mild dyspnea at rest. Lightheaded when supine. No syncope. No CP, palpitations, PND. Objective Medications Item Value Date Time Heparin Sodium/ 250 ml @ 10 mls/hr 08/15/17 1500 Dextrose TITRATE PRN/IV 08/15/172107 Metoprolol 100 mg 08/14/17 2100 Tartrate BID/PO 08/15/172105 (Lopressor) Furosemide 40 mg 08/13/17 0900 (Lasix Inj) BID@/IVP 08/15/17 1700 Amlodipine 10 mg 08/13/17 0900 Besylate DAILY/PO 08/15/17 0851 (Norvasc) Aspirin 81 mg 08/13/17 0900 (Aspirin Chew) DAILY/CHEW 08/15/17 0852 Atorvastatin 80 mg 08/13/17 0900 Calcium DAILY/PO 08/15/17 08 (Lipitor) Current Medications Medications (Trade) Dose Ordered Sig/Sammy Route Start Time Stop Time Status Last Admin (NS Flush) 2 ml BID IV FLUSH 08/12/17 21:00 08/15/17 21:06 (NS Flush) 2 ml UNSCH PRN IV FLUSH 08/12/17 20:30 (Lasix Inj) 40 mg BID@ IVP 08/13/17 09:00 08/15/17 17:00 (KCl) 20 meq BID PO 08/12/17 21:00 08/15/17 21:06 (Norvasc) 10 mg DAILY PO 08/13/17 09:00 08/15/17 08:51 (Aspirin Chew) 81 mg DAILY CHEW 08/13/17 09:00 08/15/17 08:52 (Lipitor) 80 mg DAILY PO 08/13/17 09:00 08/15/17 08:51 (Robitussin Dm 200-20 Mg/10 ml Liq) 10 ml Q6H PRN PO 08/13/17 00:45 08/13/17 20:21 Sodium Chloride 1,000 ml @ 100 mls/hr Q10H IV 08/14/17 13:00 08/19/17 12:59 08/15/17 17:59 (Benadryl) 50 mg FREELANCE PHOTOGRAPHER PO 08/14/17 11:30 08/18/17 11:29 08/15/17 12:50 (Valium) 10 mg FREELANCE PHOTOGRAPHER PO 08/14/17 11:30 08/18/17 11:29 08/15/17 12:49 (Versed Inj) 1 mg FREELANCE PHOTOGRAPHER IV PUSH 08/14/17 11:30 08/18/17 11:29 (Lopressor) 100 mg BID PO 08/14/17 21:00 08/15/17 21:06 (Atropine Inj) 0.5 mg UNSCH PRN IV 08/15/17 15:00 Sodium Chloride 250 ml @ 0 mls/hr UNSCH X1 PRN IV 08/15/17 15:00 08/16/17 14:59 (Heparin Inj) 5,000 units UNSCH PRN IV PUSH 08/15/17 21:00 (Heparin Inj) 2,500 units UNSCH PRN IV PUSH 08/15/17 21:00 Heparin Sodium/ Dextrose 250 ml @ 10 mls/hr TITRATE PRN IV 08/15/17 15:00 08/15/17 21:08 Vital Signs / I&O Vital Signs Date Time Temp Pulse Resp B/P (MAP) Pulse Ox O2 Delivery O2 Flow Rate FiO2 08/16/17 04:17 98.2 70 18 135/96 (109) 94 08/16/17 04:00 70 08/16/17 00:00 74 08/15/17 23:42 98.6 75 18 143/76 (98) 97 08/15/17 20:00 79 08/15/17 19:45 Nasal Cannula 3.00 08/15/17 19:40 98.2 78 18 145/93 (110) 93 08/15/17 18:00 97.9 83 20 155/104 (121) 97 08/15/17 15:22 99 Room Air 08/15/17 12:00 70 08/15/17 11:29 21 08/15/17 08:00 97.4 88 18 153/116 (128) 94 08/15/17 08:00 82 08/15/17 08:00 Nasal Cannula 3.00 I/O 08/15/17 08/15/17 08/15/17 08/16/17 08/16/17 08/16/17 07:00 15:00 23:00 07:00 15:00 23:00 Intake Total 600 ml 0 ml 600 ml Output Total 1300 ml 200 ml 600 ml 1550 ml Balance -700 ml -200 ml -600 ml -950 ml Intake Oral 600 ml 0 ml 600 ml Output Urine Total 1300 ml 200 ml 600 ml 1550 ml # Bowel Movements 0 0 Physical Exam GENERAL: Well developed, well nourished. No acute distress. HEENT: Jugular venous pressure 11 cm water. CHEST: Diminished breath sounds bases. CARDIAC: Irregular rate and rhythm without S3, S4. II/ HSM apex, LLSB. ABDOMEN: Soft, nontender, no hepatosplenomegaly. Bowel sounds present. EXTREMITIES: No clubbing, cyanosis. 1+ pretibial edema. Laboratory Laboratory Tests Test 08/16/17 02:14 Prothrombin Time 11.2 SEC Prothromb Time International Ratio 1.1 RATIO Activated Partial Thromboplast Time 43.8 SEC Blood Urea Nitrogen 28 MG/DL Creatinine 1.25 MG/DL Random Glucose 120 MG/DL Calcium Level 8.0 MG/DL Sodium Level 142 MEQ/L Potassium Level 3.8 MEQ/L Chloride Level 108 MEQ/L Carbon Dioxide Level 27.5 MEQ/L Anion Gap 7 MEQ/L Estimat Glomerular Filtration Rate 59 ML/MIN Assessment and Plan Problem List: (1) Congestive heart failure ICD Codes: I50.9 - Heart failure, unspecified Status: Acute Plan: Slowly improving. Negative fluid balance past 24 hours. Also s/p right thoracentesis. Appears CHF precipitated by what is likely acute severe mitral regurgitation, ? precipitated by papillary muscle dysfunction. No definite changes seen in coronary/graft anatomy however. REC continue diuresis CV surgery consultation for MVR Dr. Carlos to see patient PRN over the weekend (2) Mitral valve regurgitation ICD Codes: I34.0 - Nonrheumatic mitral (valve) insufficiency Status: Acute Plan: Severe eccentric MR by echo, severe MR by left ventriculography. MR likely precipitating factor for CHF. Consult CV surgery. (3) CAD (coronary artery disease) ICD Codes: I25.10 - Atherosclerotic heart disease of [place] coronary artery without angina pectoris Status: Chronic Plan: Stable. No definite angina. No ischemia on recent nuclear stress test. Unchanged coronary/graft anatomy on cath today compared to last cath with 3 or 4 grafts patent. Continue medical therapy of his CAD. (4) Hypertension ICD Codes: I10 - Essential (primary) hypertension Status: Chronic Plan: Mildly hypertensive. Consider VIJAYA-I or ARB. Code Status full code Discussed Condition With patient Problem Qualifiers (1) Congestive heart failure: Qualified Codes: I50.9 - Heart failure, unspecified (2) Mitral valve regurgitation: Qualified Codes: I34.0 - Nonrheumatic mitral (valve) insufficiency (3) CAD (coronary artery disease): Qualified Codes: I25.10 - Atherosclerotic heart disease of [place] coronary artery without angina pectoris (4) Hypertension: Qualified Codes: I10 - Essential (primary) hypertension Alexandru Bella MD Aug 16, 2017 07:35
[2017-08-16] MEDS: METOPROLOL TARTRATE 50 MG TAB PO SCH ×2 (07:51→21:21)
[2017-08-16] MEDS: ASPIRIN 81 MG CHEW TAB CHEW SCH (07:51)
[2017-08-16] MEDS: ATORVASTATIN 80 MG TAB PO SCH (07:51)
[2017-08-16] MEDS: POTASSIUM CHLORIDE 20 MEQ CONTROLLED RELEASE TAB PO SCH ×2 (07:51→21:22)
[2017-08-16] MEDS: FUROSEMIDE 40 MG/4 ML VIAL IVP SCH ×2 (07:52→17:27)
[2017-08-16] MEDS: SODIUM CHLORIDE 0.9% FLUSH 10 ML FLUSH IV FLUSH SCH ×2 (09:00→21:22)
--- NOTE | 2017-08-16 10:13 | HHI.PR ---
Subjective Remarks still with some orthopnea/cough with lying flat Objective Vitals heart reg lung diminished base abd s/nt ext trace edema Vital Signs Date Time Temp Pulse Resp B/P (MAP) Pulse Ox O2 Delivery O2 Flow Rate FiO2 08/16/17 08:00 97.7 69 20 150/90 (110) 95 08/16/17 08:00 69 08/16/17 08:00 Room Air 08/16/17 04:17 98.2 70 18 135/96 (109) 94 08/16/17 04:00 70 08/16/17 00:00 74 08/15/17 23:42 98.6 75 18 143/76 (98) 97 08/15/17 20:00 79 08/15/17 19:45 Nasal Cannula 3.00 08/15/17 19:40 98.2 78 18 145/93 (110) 93 08/15/17 18:00 97.9 83 20 155/104 (121) 97 08/15/17 15:22 99 Room Air 08/15/17 12:00 70 08/15/17 11:29 21 Result Diagram: 08/12/17 1320 08/16/17 0214 Imaging Last [address] Angiography 08/12/17 1436 Signed Impressions: Service Date/Time: Saturday, August 12, 2017 16:12 - CONCLUSION: Moderate congestive failure with bilateral pleural effusions larger on the right and moderate size on the left. No central pulmonary emboli. Juan Adhikari MD FACR Chest X-Ray 08/12/17 1254 Signed Impressions: Service Date/Time: Saturday, August 12, 2017 13:35 - CONCLUSION: Progression when compared to 08/06/17 thought to be congestive failure. Juan Adhikari MD FACR A/P Problem List: (1) Congestive heart failure ICD Codes: I50.9 - Heart failure, unspecified Status: Acute Plan: 1. severe mitral valve regurgiation with valvular acute chf and atrial fibrillation. bilateral pleural effusions. right greater. s/p right thoracentesis 08/14. 1350 ml. LHC 08/15. no intervention on coronaries required. 2. cyndi. improving with diuresis discussed with cardiology. await CTS eval for MVR cont diuretics and monitor bmp hold off anticoagulation for now. updated pt/daughter. (2) Mitral valve regurgitation ICD Codes: I34.0 - Nonrheumatic mitral (valve) insufficiency Status: Acute (3) Hodgkin lymphoma ICD Codes: C81.90 - Hodgkin lymphoma Status: Chronic Plan: Follow with outpatient oncology. (4) CAD (coronary artery disease) ICD Codes: I25.10 - Atherosclerotic heart disease of [place] coronary artery without angina pectoris Status: Chronic Plan: above (5) Chronic a-fib ICD Codes: I48.2 - Chronic atrial fibrillation Status: Chronic Plan: Reportedly initially experiences after his bypass graft. Rate relatively well controlled. Chads 2 vasc score is 2 or 3 and likely would benefit from an anticoagulants such as warfarin or alternative oral anticoagulant. Will consult his mechanical test technician for opinion. (6) Hypertension ICD Codes: I10 - Essential (primary) hypertension Status: Chronic Plan: Fair control. Continue medication. (7) Hyperlipidemia ICD Codes: E78.5 - Hyperlipidemia, unspecified Status: Chronic Plan: Continue statin. Total cholesterol was 98 in May 2017 with an LDL of 39 and HDL of 42. (8) Renal insufficiency ICD Codes: N28.9 - Disorder of kidney and ureter, unspecified Status: Acute Plan: improved. Problem Qualifiers (1) Congestive heart failure: Qualified Codes: I50.9 - Heart failure, unspecified (2) Mitral valve regurgitation: Qualified Codes: I34.0 - Nonrheumatic mitral (valve) insufficiency (3) Hodgkin lymphoma: (4) CAD (coronary artery disease): Qualified Codes: I25.10 - Atherosclerotic heart disease of [place] coronary artery without angina pectoris (5) Hypertension: Qualified Codes: I10 - Essential (primary) hypertension Corbin Mcnally MD Aug 16, 2017 10:13
[2017-08-16] MEDS ORDERED: ZOLPIDEM TARTRATE 10 MG TAB PO SCH (21:00)
[2017-08-16] MEDS: HEPARIN-D5W 25,000 U/250 ML 250 ML IV PRN (21:29)
[2017-08-16] MEDS ORDERED: ONDANSETRON HCL 4 MG/2 ML VIAL IV PUSH PRN (23:45)
[2017-08-17] VITALS (9 sets, daily range): BP systolic 130–150; BP diastolic 60–98; PULSE 51–82; RESP 18; TEMP 97.6–97.9; O2SAT 95–97
[2017-08-17] MEDS: SODIUM CHLOR 0.9% 1000 ML INJ 1,000 ML IV SCH ×2 (01:00→10:57)
[2017-08-17] MEDS: SODIUM CHLORIDE 0.9% FLUSH 10 ML FLUSH IV FLUSH SCH ×2 (08:26→21:00)
[2017-08-17] MEDS: ATORVASTATIN 80 MG TAB PO SCH (08:27)
[2017-08-17] MEDS: POTASSIUM CHLORIDE 20 MEQ CONTROLLED RELEASE TAB PO SCH ×2 (08:27→21:05)
[2017-08-17] MEDS: ASPIRIN 81 MG CHEW TAB CHEW SCH (08:27)
[2017-08-17] MEDS: METOPROLOL TARTRATE 50 MG TAB PO SCH ×2 (08:27→21:04)
[2017-08-17] MEDS: FUROSEMIDE 40 MG/4 ML VIAL IVP SCH (08:28)
--- NOTE | 2017-08-17 09:17 | HHI.PR ---
Subjective Remarks sitting in chair Objective Vitals heart reg. [place] to axilla lung diminished bases abd s/nt ext trace edema Vital Signs Date Time Temp Pulse Resp B/P (MAP) Pulse Ox O2 Delivery O2 Flow Rate FiO2 08/17/17 08:00 97.6 68 18 130/60 (83) 97 08/17/17 05:07 97.9 72 18 150/98 (115) 96 08/17/17 04:00 74 08/17/17 00:00 76 08/16/17 23:10 97.8 76 24 154/98 (116) 93 08/16/17 22:10 97.7 69 24 0/ 91 142/98 (113) 08/16/17 20:49 98.0 73 18 168/95 (119) 97 08/16/17 20:00 72 08/16/17 20:00 Room Air 08/16/17 16:07 64 08/16/17 16:00 98.4 66 18 149/96 (113) 96 08/16/17 12:00 97.8 62 18 137/91 (106) 97 08/16/17 12:00 79 08/16/17 11:10 95 Result Diagram: 08/16/17 0214 Imaging Last [address] Angiography 08/12/17 1436 Signed Impressions: Service Date/Time: Saturday, August 12, 2017 16:12 - CONCLUSION: Moderate congestive failure with bilateral pleural effusions larger on the right and moderate size on the left. No central pulmonary emboli. Juan Adhikari MD FACR Chest X-Ray 08/12/17 1254 Signed Impressions: Service Date/Time: Saturday, August 12, 2017 13:35 - CONCLUSION: Progression when compared to 08/06/17 thought to be congestive failure. Juan Adhikari MD FACR A/P Problem List: (1) Congestive heart failure ICD Codes: I50.9 - Heart failure, unspecified Status: Acute Plan: 1. severe mitral valve regurgiation with valvular acute chf and atrial fibrillation. bilateral pleural effusions. right greater. s/p right thoracentesis 08/14. 1350 ml. LHC 08/15. no intervention on coronaries required. 2. cyndi. improving with diuresis discussed with cardiology. await CTS eval and recommendations for MVR cont diuretics and monitor bmp..pending hold off anticoagulation for now. (2) Mitral valve regurgitation ICD Codes: I34.0 - Nonrheumatic mitral (valve) insufficiency Status: Acute (3) Hodgkin lymphoma ICD Codes: C81.90 - Hodgkin lymphoma Status: Chronic Plan: Follow with outpatient oncology. (4) CAD (coronary artery disease) ICD Codes: I25.10 - Atherosclerotic heart disease of [place] coronary artery without angina pectoris Status: Chronic Plan: above (5) Chronic a-fib ICD Codes: I48.2 - Chronic atrial fibrillation Status: Chronic Plan: Reportedly initially experiences after his bypass graft. Rate relatively well controlled. Chads 2 vasc score is 2 or 3 and likely would benefit from an anticoagulants such as warfarin or alternative oral anticoagulant. Will consult his fitness coordinator for opinion. (6) Hypertension ICD Codes: I10 - Essential (primary) hypertension Status: Chronic Plan: Fair control. Continue medication. (7) Hyperlipidemia ICD Codes: E78.5 - Hyperlipidemia, unspecified Status: Chronic Plan: Continue statin. Total cholesterol was 98 in May 2017 with an LDL of 39 and HDL of 42. (8) Renal insufficiency ICD Codes: N28.9 - Disorder of kidney and ureter, unspecified Status: Acute Plan: improved. Problem Qualifiers (1) Congestive heart failure: Qualified Codes: I50.9 - Heart failure, unspecified (2) Mitral valve regurgitation: Qualified Codes: I34.0 - Nonrheumatic mitral (valve) insufficiency (3) Hodgkin lymphoma: (4) CAD (coronary artery disease): Qualified Codes: I25.10 - Atherosclerotic heart disease of [place] coronary artery without angina pectoris (5) Hypertension: Qualified Codes: I10 - Essential (primary) hypertension Corbin Mcnally MD Aug 17, 2017 09:17
[2017-08-17 11:20] LABS: INTERNATIONAL NORMALIZED RATIO 1.1 RATIO
[2017-08-17 11:44] LABS: BICARBONATE 30.3 MEQ/L (21.0-32.0); CALCIUM 9.1 MG/DL (8.5-10.1); CREATININE 1.3 MG/DL (0.60-1.30)
[2017-08-17] MEDS ORDERED: ZOLPIDEM TARTRATE 5 MG TAB PO PRN (12:45)
[2017-08-17] MEDS ORDERED: PANTOPRAZOLE SOD 40 MG DELAYED RELEASE TAB PO ONE (13:00)
[2017-08-17] MEDS ORDERED: HEPARIN-D5W 25,000 U/250 ML 250 ML IV PRN (13:00)
[2017-08-17] MEDS: FUROSEMIDE 40 MG TAB PO SCH (17:08)
[2017-08-17] MEDS ORDERED: HEPARIN SODIUM - IV 10,000 UNITS/10 ML VIAL IV PUSH PRN ×2 (19:00)
[2017-08-18] VITALS (9 sets, daily range): BP systolic 123–146; BP diastolic 68–95; PULSE 56–78; RESP 16–20; TEMP 97.2–98.2; O2SAT 94–98
[2017-08-18] MEDS: SODIUM CHLORIDE 0.9% FLUSH 10 ML FLUSH IV FLUSH SCH ×2 (07:45→21:00)
[2017-08-18] MEDS: FUROSEMIDE 40 MG TAB PO SCH (07:51)
[2017-08-18] MEDS: ASPIRIN 81 MG CHEW TAB CHEW SCH (07:51)
[2017-08-18] MEDS: POTASSIUM CHLORIDE 20 MEQ CONTROLLED RELEASE TAB PO SCH (07:51)
[2017-08-18] MEDS: PANTOPRAZOLE SOD 40 MG DELAYED RELEASE TAB PO SCH (07:52)
[2017-08-18] MEDS: ATORVASTATIN 80 MG TAB PO SCH (07:52)
[2017-08-18] MEDS: METOPROLOL TARTRATE 50 MG TAB PO SCH ×2 (07:52→21:21)
--- NOTE | 2017-08-18 09:19 | HHI.PR ---
Subjective Remarks pt eager to understand the plan for his MVR Objective Vitals heart reg. [place] to axilla lung diminished bases abd s/nt ext trace edema Vital Signs Date Time Temp Pulse Resp B/P (MAP) Pulse Ox O2 Delivery O2 Flow Rate FiO2 08/18/17 08:00 97.2 75 20 146/95 (112) 97 08/18/17 07:08 Room Air 08/18/17 04:00 98.2 68 18 130/68 (88) 97 08/18/17 04:00 Room Air 08/18/17 03:45 59 08/18/17 00:00 68 08/18/17 00:00 97.9 78 16 123/83 (96) 94 08/18/17 00:00 Room Air 08/17/17 23:15 51 08/17/17 20:28 60 08/17/17 20:00 Room Air 08/17/17 20:00 97.8 80 18 140/93 (109) 96 08/17/17 16:00 55 08/17/17 16:00 97.6 55 18 142/68 (92) 97 08/17/17 12:00 97.9 64 18 140/80 (100) 95 08/17/17 12:00 65 08/17/17 10:34 Room Air Result Diagram: 08/17/17 0950 Imaging Last [address] Angiography 08/12/17 1436 Signed Impressions: Service Date/Time: Saturday, August 12, 2017 16:12 - CONCLUSION: Moderate congestive failure with bilateral pleural effusions larger on the right and moderate size on the left. No central pulmonary emboli. Juan Adhikari MD FACR Chest X-Ray 08/12/17 1254 Signed Impressions: Service Date/Time: Saturday, August 12, 2017 13:35 - CONCLUSION: Progression when compared to 08/06/17 thought to be congestive failure. Juan Adhikari MD FACR A/P Problem List: (1) Congestive heart failure ICD Codes: I50.9 - Heart failure, unspecified Status: Acute Plan: 1. severe mitral valve regurgiation with valvular acute chf and atrial fibrillation. bilateral pleural effusions. right greater. s/p right thoracentesis 08/14. 1350 ml. LHC 08/15. no intervention on coronaries required. 2. cyndi. improving with diuresis discussed with cardiology. await CTS eval and recommendations for MVR. Pt says they want to transfer him to [place]...he is asking to speak with CTS today. cont diuretics and monitor bmp..pending started on heparin per cardiology. (2) Mitral valve regurgitation ICD Codes: I34.0 - Nonrheumatic mitral (valve) insufficiency Status: Acute (3) Hodgkin lymphoma ICD Codes: C81.90 - Hodgkin lymphoma Status: Chronic Plan: Follow with outpatient oncology. (4) CAD (coronary artery disease) ICD Codes: I25.10 - Atherosclerotic heart disease of [place] coronary artery without angina pectoris Status: Chronic Plan: above (5) Chronic a-fib ICD Codes: I48.2 - Chronic atrial fibrillation Status: Chronic Plan: Reportedly initially experiences after his bypass graft. Rate relatively well controlled. Chads 2 vasc score is 2 or 3 and likely would benefit from an anticoagulants such as warfarin or alternative oral anticoagulant. Will consult his curtain hemmer automatic for opinion. (6) Hypertension ICD Codes: I10 - Essential (primary) hypertension Status: Chronic Plan: Fair control. Continue medication. (7) Hyperlipidemia ICD Codes: E78.5 - Hyperlipidemia, unspecified Status: Chronic Plan: Continue statin. Total cholesterol was 98 in May 2017 with an LDL of 39 and HDL of 42. (8) Renal insufficiency ICD Codes: N28.9 - Disorder of kidney and ureter, unspecified Status: Acute Plan: improved. Problem Qualifiers (1) Congestive heart failure: Qualified Codes: I50.9 - Heart failure, unspecified (2) Mitral valve regurgitation: Qualified Codes: I34.0 - Nonrheumatic mitral (valve) insufficiency (3) Hodgkin lymphoma: (4) CAD (coronary artery disease): Qualified Codes: I25.10 - Atherosclerotic heart disease of [place] coronary artery without angina pectoris (5) Hypertension: Qualified Codes: I10 - Essential (primary) hypertension Corbin Mcnally MD Aug 18, 2017 09:19
[2017-08-18 10:19] LABS: HEMATOCRIT 42.1 % (39.0-51.0); HEMOGLOBIN 13.9 GM/DL (13.0-17.0); MEAN CELL VOLUME 83.2 FL (80.0-100.0); MEAN CORPUSCULAR HEMOGLOBIN 27.6 PG (27.0-34.0); MEAN CORPUSCULAR HGB CONC 33.2 % (32.0-36.0); MEAN PLATELET VOLUME 9.7 FL (7.0-11.0); PLATELET COUNT 166 TH/MM3 (150-450); RED BLOOD COUNT 5.05 MIL/MM3 (4.50-5.90); RED CELL DISTRIBUTION WIDTH 14.2 % (11.6-17.2); WHITE BLOOD COUNT 8.2 TH/MM3 (4.0-11.0)
[2017-08-18 10:52] LABS: BICARBONATE 31.5 MEQ/L (21.0-32.0); CALCIUM 8.8 MG/DL (8.5-10.1); CREATININE 1.53 MG/DL (0.60-1.30)
[2017-08-19] VITALS (10 sets, daily range): BP systolic 118–145; BP diastolic 64–96; PULSE 54–76; RESP 18–22; TEMP 97.7–98.3; O2SAT 94–97
--- NOTE | 2017-08-19 07:05 | RADRPT ---
EXAM DATE/TIME: 08/19/2017 06:00 [facility] COMPARISON: No previous studies available for comparison. INDICATIONS : Short of breath, evaluate effusion MEDICAL HISTORY : Cardiovascular disease. SURGICAL HISTORY : CABG. thoracentesis ENCOUNTER: Subsequent ACUITY: 3 days PAIN SCORE: 0/10 LOCATION: Bilateral chest FINDINGS: Tiny right and small left pleural effusions are present. There is mild left base consolidation. No pn eumothorax. Heart size stable, upper limits of normal. Patient has had previous median sternotomy and CABG. CONCLUSION: Tiny right, small left pleural effusions and mild left base consolidation, unchanged. Adarsh Doe MD on August 19, 2017 at 7:01 Board Certified Radiologist. This report was verified electronically.
[2017-08-19 07:59] LABS: BICARBONATE 31.1 MEQ/L (21.0-32.0); CALCIUM 8.8 MG/DL (8.5-10.1); CREATININE 1.29 MG/DL (0.60-1.30)
--- NOTE | 2017-08-19 08:03 | PD.CARD.PN ---
Subjective Subjective Remarks Mild intermittent dyspnea at rest. Lightheaded when supine. No syncope. No CP , palpitations, PND. Continued orthopnea. Objective Medications Item Value Date Time Heparin Sodium/ 250 ml @ 10 mls/hr 08/17/17 1300 Dextrose TITRATE PRN/IV 08/17/172357 Metoprolol 100 mg 08/14/17 2100 Tartrate BID/PO 08/18/172120 (Lopressor) Amlodipine 10 mg 08/13/17 0900 Besylate DAILY/PO 08/18/17 0752 (Norvasc) Aspirin 81 mg 08/13/17 0900 (Aspirin Chew) DAILY/CHEW 08/18/17 0751 Atorvastatin 80 mg 08/13/17 0900 Calcium DAILY/PO 08/18/17 075 (Lipitor) Current Medications Medications (Trade) Dose Ordered Sig/Sammy Route Start Time Stop Time Status Last Admin (NS Flush) 2 ml BID IV FLUSH 08/12/17 21:00 08/18/17 21:00 (NS Flush) 2 ml UNSCH PRN IV FLUSH 08/12/17 20:30 (Norvasc) 10 mg DAILY PO 08/13/17 09:00 08/18/17 07:52 (Aspirin Chew) 81 mg DAILY CHEW 08/13/17 09:00 08/18/17 07:51 (Lipitor) 80 mg DAILY PO 08/13/17 09:00 08/18/17 07:52 (Robitussin Dm 200-20 Mg/10 ml Liq) 10 ml Q6H PRN PO 08/13/17 00:45 08/13/17 20:21 (Lopressor) 100 mg BID PO 08/14/17 21:00 08/18/17 21:21 (Atropine Inj) 0.5 mg UNSCH PRN IV 08/15/17 15:00 (Zofran Inj) 4 mg Q6H PRN IV PUSH 08/16/17 23:45 (Protonix) 40 mg DAILY PO 08/18/17 09:00 08/18/17 07:52 (Ambien) 5 mg HS PRN PO 08/17/17 12:45 (Heparin Inj) 5,000 units UNSCH PRN IV PUSH 08/17/17 19:00 (Heparin Inj) 2,500 units UNSCH PRN IV PUSH 08/17/17 19:00 Heparin Sodium/ Dextrose 250 ml @ 10 mls/hr TITRATE PRN IV 08/17/17 13:00 08/17/17 23:58 Vital Signs / I&O Vital Signs Date Time Temp Pulse Resp B/P (MAP) Pulse Ox O2 Delivery O2 Flow Rate FiO2 08/19/17 04:00 71 08/19/17 03:59 Room Air 08/19/17 00:00 54 08/19/17 00:00 97.7 75 18 138/90 (106) 94 08/19/17 00:00 Room Air 08/18/17 20:38 98 21 08/18/17 20:00 Room Air 08/18/17 20:00 97.8 77 18 141/89 (106) 94 08/18/17 19:43 68 08/18/17 16:00 97.4 63 20 135/88 (104) 97 08/18/17 16:00 56 08/18/17 12:00 70 08/18/17 12:00 97.9 72 20 125/83 (97) 97 08/18/17 08:00 76 08/18/17 08:00 97.2 75 20 146/95 (112) 97 I/O 08/18/17 08/18/17 08/18/17 08/19/17 08/19/17 08/19/17 07:00 15:00 23:00 07:00 15:00 23:00 Intake Total 450 ml 600 ml 117 ml Output Total 800 ml Balance 450 ml -200 ml 117 ml Intake Oral 240 ml 600 ml IV Total 210 ml 117 ml Output Urine Total 800 ml # Voids 3 # Bowel Movements 0 Physical Exam GENERAL: Well developed, well nourished. No acute distress. HEENT: Jugular venous pressure normal. CHEST: Diminished breath sounds bases. CARDIAC: Irregular rate and rhythm without S3, S4. II/ HSM apex, LLSB. ABDOMEN: Soft, nontender, no hepatosplenomegaly. Bowel sounds present. EXTREMITIES: No clubbing, cyanosis. Trace to 1+ pretibial edema. Laboratory Laboratory Tests Test 08/18/17 08:54 08/18/17 09:03 08/19/17 07:01 White Blood Count 8.2 TH/MM3 Red Blood Count 5.05 MIL/MM3 Hemoglobin 13.9 GM/DL Hematocrit 42.1 % Mean Corpuscular Volume 83.2 FL Mean Corpuscular Hemoglobin 27.6 PG Mean Corpuscular Hemoglobin Concent 33.2 % Red Cell Distribution Width 14.2 % Platelet Count 166 TH/MM3 Mean Platelet Volume 9.7 FL Blood Urea Nitrogen 27 MG/DL Creatinine 1.53 MG/DL Random Glucose 140 MG/DL Calcium Level 8.8 MG/DL Sodium Level 138 MEQ/L Potassium Level 3.6 MEQ/L Chloride Level 102 MEQ/L Carbon Dioxide Level 31.5 MEQ/L Anion Gap 5 MEQ/L Estimat Glomerular Filtration Rate 47 ML/MIN Activated Partial Thromboplast Time 46.2 SEC 54.7 SEC Imaging Last 24 hours Impressions Chest X-Ray 08/19/17 0600 Signed Impressions: Service Date/Time: Saturday, August 19, 2017 06:00 - CONCLUSION: Tiny right, small left pleural effusions and mild left base consolidation, unchanged. Adarsh Doe MD Assessment and Plan Problem List: (1) Congestive heart failure ICD Codes: I50.9 - Heart failure, unspecified Status: Acute Plan: Overall much improved. Tiny to small bilateral effusions on last CXR. Appears CHF precipitated by what is likely acute severe mitral regurgitation, ? precipitated by papillary muscle dysfunction. No definite changes seen in coronary/graft anatomy however. REC oral furosemide 40 mg qd, continue metoprolol patient to see Dr. Millan in [place] as outpatient soon after discharge to be considered for MitraClip (2) Mitral valve regurgitation ICD Codes: I34.0 - Nonrheumatic mitral (valve) insufficiency Status: Acute Plan: Severe eccentric MR by echo, severe MR by left ventriculography. MR likely precipitating factor for CHF. Patient to see Dr. Millan in [place] for consideration of MitraClip. (3) Paroxysmal atrial fibrillation ICD Codes: I48.0 - Paroxysmal atrial fibrillation Status: Acute Plan: Remains in atrial fib. HR's OK. Rec start Eliquis 5 mg bid. (4) CAD (coronary artery disease) ICD Codes: I25.10 - Atherosclerotic heart disease of [place] coronary artery without angina pectoris Status: Chronic Plan: Stable. No definite angina. No ischemia on recent nuclear stress test. Unchanged coronary/graft anatomy on cath this admission compared to last cath with 3 or 4 grafts patent. Continue medical therapy of his CAD. (5) Hypertension ICD Codes: I10 - Essential (primary) hypertension Status: Chronic Plan: Mildly hypertensive. Consider VIJAYA-I or ARB. Code Status full code Discussed Condition With patient Problem Qualifiers (1) Congestive heart failure: Qualified Codes: I50.9 - Heart failure, unspecified (2) Mitral valve regurgitation: Qualified Codes: I34.0 - Nonrheumatic mitral (valve) insufficiency (3) CAD (coronary artery disease): Qualified Codes: I25.10 - Atherosclerotic heart disease of [place] coronary artery without angina pectoris (4) Hypertension: Qualified Codes: I10 - Essential (primary) hypertension Alexandru Bella MD Aug 19, 2017 08:03
--- NOTE | 2017-08-19 08:24 | MB ---
cc: REBECCA GARG MD DATE OF CONSULTATION 08/16/17 1957 HISTORY OF PRESENT ILLNESS A 62-year-old male, patient of Dr. Dominick isaac, Dr. Alexandru Bella, history of coronary artery disease, paroxysmal atrial fibrillation who presented with a three-week history of shortness of breath, cough, some orthopnea. Denied any chest pain. Also some lower extremity edema that occurred recently. He presented to the emergency department with several day history of this increasing shortness of breath. A chest x-ray and a CT showed moderate CHF, bilateral effusions, the right greater than the left, no pulmonary emboli. He has been also feeling somewhat lightheaded, felt like he was going to pass out and also some mild flittering palpitations. Per his daughter, he has not been very compliant with his no added salt diet and fluid intake. We were consulted after the patient had an echocardiogram that showed ejection fraction of 60-65%, mild LVH. Left atrial size moderately dilated. The posterior valve leaflet had prolapse. There was severe mitral regurgitation. The mitral valve regurgitation jet is directed anteriorly. There is also some mild to moderate tricuspid valve regurgitation and pulmonary artery pressures of 80 mmHg. The tricuspid valve had mild to moderate regurgitation. No pericardial effusion. There was evidence of left pleural effusion. He then underwent cardiac catheterization with his history of coronary artery disease and coronary artery bypass grafting. He had three out of four bypass grafts including the FOLEY to the LAD, the vein graft to the OM. The vein graft to the posterior descending artery was patent. The vein graft to the posterolateral branch was chronically totally occluded and also showed again severe mitral regurgitation. Hemodynamic results revealed an aorta 132/83 with a mean of 103. No significant transvalvular aortic gradient on pullback of the pigtail catheter. The patient has also undergone recent right ultrasound-guided thoracentesis where they drained 1300 mL of dark fluid. The pleural fluid had no growth. Cytology is pending. It was transudative. We were consulted to evaluate for mitral valve replacement. PAST MEDICAL HISTORY 1. Coronary artery disease with coronary artery bypass grafting in December 2004 at [facility] by Dr. Sahu. He has also since has stent to the [place] LAD and stent to the [place] OM in 2010. Last catheterization prior to the one today was in 2013. 2. History of hyperlipidemia, 3. Hypertension 4. Hodgkin's lymphoma status post chemotherapy three years ago followed by Dr. Alejo. ALLERGIES The patient has no known allergies MEDICATIONS Home include 1. Metoprolol 50 b.i.d. 2. Atorvastatin 20 qhs 3. Aspirin 81 daily. 4. Amlodipine 10 p.o. daily. FAMILY HISTORY Mother at 61 from asthma. Father at 47 following a cardiac arrest. SOCIAL HISTORY The patient originally from the [facility]. 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 He is , two children. He smoked for about six years, quit at age 28. Rare alcohol. REVIEW OF SYSTEMS GENERAL: No night sweats, fever, heat and cold intolerance. SKIN: No psoriasis, itching or hives. HEENT: No blurred vision, hearing loss. RESPIRATORY: Positive for shortness of breath. No cough. CARDIOVASCULAR: Positive for recent orthopnea, bilateral lower leg edema. No chest pain. He has had some presyncope, lightheadedness. GASTROINTESTINAL: No diarrhea, vomiting. GENITOURINARY: No burning, frequency, urgency PEDIATRIC DIETICIAN: No history of TIA, CVA, seizure disorder. ENDOCRINE: No history of diabetes and/or hypothyroidism. PHYSICAL EXAMINATION GENERAL: On exam, a very pleasant 62-year-old male. Patient is awake, alert in no acute distress. VITAL SIGNS: Blood pressure 140/90, heart rate 66, afebrile. HEENT: Head is normocephalic, atraumatic. Pupils equal and reactive. Oral mucosa pink, moist. NECK: Supple. No JVD. CARDIAC: Heart sounds S1, S2 regular rate and rhythm. He has a grade 2/6 systolic murmur, best heard at the left sternal border, heart rate is irregular rate and rhythm. No definite gallop is audible. LUNGS: He is diminished in the bases, few crackles in left lower base. ABDOMEN: Soft, nontender. No masses or organomegaly. EXTREMITIES: Reveals +1-2 edema, greater on the left versus the right. He has good distal pulses. LABORATORY DATA Hemoglobin 14, hematocrit of 42, white cell count of 11, platelet count 177. Sodium 142, potassium 3.8, BUN of 28, creatinine 1.25, glucose 120, AST 57, ALT 68, troponin less than 0.02, INR 1.1. IMAGING STUDIES Radiological exams as above. CARDIOLOGY STUDIES EKG shows atrial fibrillation rightward axis, nonspecific lateral ST-T wave abnormality. IMPRESSION A 62-year-old male with recurrent atrial fibrillation, was only on aspirin at home for this. Also history of coronary artery disease status post coronary artery bypass grafting in 2004 now with admission with CHF. Echocardiogram revealing severe mitral valve regurgitation with posterior mitral valve leaflet prolapse, ejection fraction of 60%. At this time, the patient is on heparin therapy. The cardiac films have been reviewed by Dr. Rebecca Garg. He has spoken to Dr. Ciro Carlson at [facility] in regards for possible evaluation for mitral clip procedure. The patient is very interested in doing so. There is a possibility of being discharged over the weekend. He can follow up with Dr. Carlson as soon as they get an appointment. The records were faxed. The patient was given his CDs and we discussed also everything with the daughter. She is understanding as to the procedure for followup. We have given her our number to call if there is any questions or concerns. In the meantime, recommendation is for the patient to follow up at [facility] with Dr. Ciro Carlson to be evaluated for mitral clip procedure. Dictated by RAISSA Hanley Rebecca SRIVASTAVA /4:54 PM /8:22 AM
[2017-08-19] MEDS: ASPIRIN 81 MG CHEW TAB CHEW SCH (09:03)
[2017-08-19] MEDS: PANTOPRAZOLE SOD 40 MG DELAYED RELEASE TAB PO SCH (09:03)
[2017-08-19] MEDS: ATORVASTATIN 80 MG TAB PO SCH (09:03)
[2017-08-19] MEDS: METOPROLOL TARTRATE 50 MG TAB PO SCH ×2 (09:03→21:06)
[2017-08-19] MEDS: APIXABAN 5 MG TABLET PO SCH ×2 (09:03→21:06)
[2017-08-19] MEDS: SODIUM CHLORIDE 0.9% FLUSH 10 ML FLUSH IV FLUSH SCH ×2 (09:04→21:00)
--- NOTE | 2017-08-19 16:17 | HHI.PR ---
Subjective Remarks Still with some SOB with ambulation and with lying down Objective Vitals Vital Signs Date Time Temp Pulse Resp B/P (MAP) Pulse Ox O2 Delivery O2 Flow Rate FiO2 08/19/17 12:08 98.1 57 19 144/95 (111) 94 08/19/17 12:00 69 08/19/17 09:40 21 08/19/17 08:08 97.7 69 19 145/94 (111) 96 08/19/17 08:00 75 08/19/17 08:00 Room Air 08/19/17 04:00 71 08/19/17 03:59 Room Air 08/19/17 00:00 54 08/19/17 00:00 97.7 75 18 138/90 (106) 94 08/19/17 00:00 Room Air 08/18/17 20:38 98 21 08/18/17 20:00 Room Air 08/18/17 20:00 97.8 77 18 141/89 (106) 94 08/18/17 19:43 68 08/18/17 16:00 97.4 63 20 135/88 (104) 97 08/18/17 16:00 56 Result Diagram: 08/18/17 0854 08/19/17 0701 Other Results Laboratory Tests Test 08/18/17 08:54 08/18/17 09:03 08/19/17 07:01 White Blood Count 8.2 TH/MM3 Red Blood Count 5.05 MIL/MM3 Hemoglobin 13.9 GM/DL Hematocrit 42.1 % Mean Corpuscular Volume 83.2 FL Mean Corpuscular Hemoglobin 27.6 PG Mean Corpuscular Hemoglobin Concent 33.2 % Red Cell Distribution Width 14.2 % Platelet Count 166 TH/MM3 Mean Platelet Volume 9.7 FL Blood Urea Nitrogen 27 MG/DL 23 MG/DL Creatinine 1.53 MG/DL 1.29 MG/DL Random Glucose 140 MG/DL 92 MG/DL Calcium Level 8.8 MG/DL 8.8 MG/DL Sodium Level 138 MEQ/L 140 MEQ/L Potassium Level 3.6 MEQ/L 3.5 MEQ/L Chloride Level 102 MEQ/L 103 MEQ/L Carbon Dioxide Level 31.5 MEQ/L 31.1 MEQ/L Anion Gap 5 MEQ/L 6 MEQ/L Estimat Glomerular Filtration Rate 47 ML/MIN 57 ML/MIN Activated Partial Thromboplast Time 46.2 SEC 54.7 SEC Imaging Last Impressions Chest X-Ray 08/19/17 0600 Signed Impressions: Service Date/Time: Saturday, August 19, 2017 06:00 - CONCLUSION: Tiny right, small left pleural effusions and mild left base consolidation, unchanged. Adarsh Doe MD Thoracentesis Ultrasound 08/14/17 0000 Signed Impressions: Service Date/Time: Monday, August 14, 2017 13:04 - CONCLUSION: Uncomplicated ultrasound guided thoracentesis. Tony Lorenzo MD CT Angiography 08/12/17 1436 Signed Impressions: Service Date/Time: Saturday, August 12, 2017 16:12 - CONCLUSION: Moderate congestive failure with bilateral pleural effusions larger on the right and moderate size on the left. No central pulmonary emboli. Juan Adhikari MD FACR Last [address] Angiography 08/12/17 1436 Signed Impressions: Service Date/Time: Saturday, August 12, 2017 16:12 - CONCLUSION: Moderate congestive failure with bilateral pleural effusions larger on the right and moderate size on the left. No central pulmonary emboli. Juan Adhikari MD FACR Chest X-Ray 08/12/17 1254 Signed Impressions: Service Date/Time: Saturday, August 12, 2017 13:35 - CONCLUSION: Progression when compared to 08/06/17 thought to be congestive failure. Juan Adhikari MD FACR Objective Remarks General: NAD, AAOx3 Chest: Good air movement bilaterally Cardiac: Irregular, sandra, in the 50's on telemetry Abd: +BS, soft ND/NT Ext: No edema A/P Problem List: (1) Congestive heart failure ICD Codes: I50.9 - Heart failure, unspecified Status: Acute Plan: Severe mitral valve regurgitation with valvular acute CHF - Pt is a 62 y/o [place] male with CAD and Hodgkin's lymphoma who presented to the ED with worsening exertional dyspnea over the past several days. Patient was recently admitted for chest pain one week prior to this admission and underwent workup which included sestamibi stress test on August 06, 2016 which demonstrated no reversible defects but some fixed defects from likely prior infarct. - Pt was found to have bilateral pleural effusions, right greater than left and underwent right sided thoracentesis on 08/14 with removal of 1350 mL of fluid - 2D echo (08/13) --> Estimated EF 60-65%, Severe mitral valve regurgitation, the MV regurg jet is directed anteriorly, mild to moderate tricuspid valve regurg, estimated PA pressure is 80mmHg - MR likely a precipitating factor for CHF - [facility] on 08/15 noted no intervention on coronaries required, severe MR by left ventriculography. - CTS following, they have recommended pt be evaluated at [facility] with Dr. Carlson for MitraClip procedure - Cont. Furosemide 40mg daily - Cont. Metoprolol 100mg BID, Norvasc 10mg po daily Paroxysmal A. fib CAD - Cardiology, Dr. Bella is following. - No reported ischemia on recent nuclear stress test. - Unchanged coronary/graft anatomy on cath this admission compared to last cath with 3 or 4 grafts patent. - Continue medical therapy of his CAD. - Pt started on Eliquis 5mg po BID JENNIFER - Improving with diuresis - Renal function is stable Hodgkin Lymphoma - Follow with outpatient oncology. (2) Mitral valve regurgitation ICD Codes: I34.0 - Nonrheumatic mitral (valve) insufficiency Status: Acute (3) Hodgkin lymphoma ICD Codes: C81.90 - Hodgkin lymphoma Status: Chronic (4) CAD (coronary artery disease) ICD Codes: I25.10 - Atherosclerotic heart disease of [place] coronary artery without angina pectoris Status: Chronic Plan: above (5) Chronic a-fib ICD Codes: I48.2 - Chronic atrial fibrillation Status: Chronic (6) Hypertension ICD Codes: I10 - Essential (primary) hypertension Status: Chronic Plan: Fair control. Continue medication. (7) Hyperlipidemia ICD Codes: E78.5 - Hyperlipidemia, unspecified Status: Chronic (8) Renal insufficiency ICD Codes: N28.9 - Disorder of kidney and ureter, unspecified Status: Acute Assessment and Plan Patient examined. Assessment and plan formulated with Promise Perea PA-C. I agree with the above. Pt to f/u at [facility] for possible mitral valve clip. Problem Qualifiers (1) Congestive heart failure: Qualified Codes: I50.9 - Heart failure, unspecified (2) Mitral valve regurgitation: Qualified Codes: I34.0 - Nonrheumatic mitral (valve) insufficiency (3) Hodgkin lymphoma: (4) CAD (coronary artery disease): Qualified Codes: I25.10 - Atherosclerotic heart disease of [place] coronary artery without angina pectoris (5) Hypertension: Qualified Codes: I10 - Essential (primary) hypertension Promise Perea Aug 19, 2017 16:17 Madi Mackenzie DO Aug 20, 2017 13:04
[2017-08-20] VITALS (7 sets, daily range): BP systolic 116–138; BP diastolic 68–82; PULSE 55–83; RESP 18–21; TEMP 97.8–98.1; O2SAT 93–99
[2017-08-20] MEDS ORDERED: diphenhydrAMINE HCL 25 MG CAP PO ONE (02:15)
--- NOTE | 2017-08-20 07:59 | PD.CARD.PN ---
Subjective Subjective Remarks No dyspnea this morning. Lightheaded when supine. No syncope. No CP, palpitations, PND. Objective Medications Item Value Date Time Apixaban 5 mg 08/19/17899 (Eliquis) BID/PO 08/19/172105 Metoprolol 100 mg 08/14/17 2100 Tartrate BID/PO 08/19/172105 (Lopressor) Amlodipine 10 mg 08/13/17899 Besylate DAILY/PO 08/19/17902 (Norvasc) Aspirin 81 mg 08/13/17899 (Aspirin Chew) DAILY/CHEW 08/19/17902 Atorvastatin 80 mg 08/13/17899 Calcium DAILY/PO 08/19/17902 (Lipitor) Current Medications Medications (Trade) Dose Ordered Sig/Sammy Route Start Time Stop Time Status Last Admin (NS Flush) 2 ml BID IV FLUSH 08/12/17 21:00 08/19/17 21:00 (NS Flush) 2 ml UNSCH PRN IV FLUSH 08/12/17 20:30 (Norvasc) 10 mg DAILY PO 08/13/17 09:00 08/19/17 09:03 (Aspirin Chew) 81 mg DAILY CHEW 08/13/17 09:00 08/19/17 09:03 (Lipitor) 80 mg DAILY PO 08/13/17 09:00 08/19/17 09:03 (Robitussin Dm 200-20 Mg/10 ml Liq) 10 ml Q6H PRN PO 08/13/17 00:45 08/13/17 20:21 (Lopressor) 100 mg BID PO 08/14/17 21:00 08/19/17 21:06 (Atropine Inj) 0.5 mg UNSCH PRN IV 08/15/17 15:00 (Zofran Inj) 4 mg Q6H PRN IV PUSH 08/16/17 23:45 (Protonix) 40 mg DAILY PO 08/18/17 09:00 08/19/17 09:03 (Ambien) 5 mg HS PRN PO 08/17/17 12:45 (Eliquis) 5 mg BID PO 08/19/17 09:00 08/19/17 21:06 Vital Signs / I&O Vital Signs Date Time Temp Pulse Resp B/P (MAP) Pulse Ox O2 Delivery O2 Flow Rate FiO2 08/20/17 04:00 98.1 74 18 138/82 (100) 93 08/20/17 04:00 75 08/20/17 03:00 75 08/20/17 00:00 Room Air 08/20/17 00:00 62 08/20/17 00:00 97.8 70 21 124/80 (95) 97 08/19/17 20:15 Room Air 08/19/17 20:00 98.3 76 22 118/64 (82) 95 08/19/17 20:00 63 08/19/17 16:08 98.3 63 18 126/96 (106) 97 08/19/17 16:00 58 08/19/17 12:08 98.1 57 19 144/95 (111) 94 08/19/17 12:00 69 08/19/17 09:40 21 08/19/17 08:08 97.7 69 19 145/94 (111) 96 08/19/17 08:00 75 08/19/17 08:00 Room Air I/O 08/19/17 08/19/17 08/19/17 08/20/17 08/20/17 08/20/17 07:00 15:00 23:00 07:00 15:00 23:00 Intake Total 117 ml 480 ml 400 ml Output Total 800 ml Balance 117 ml -320 ml 400 ml Intake Oral 480 ml 400 ml IV Total 117 ml Output Urine Total 800 ml # Voids 2 # Bowel Movements 2 0 Physical Exam GENERAL: Well developed, well nourished. No acute distress. HEENT: Jugular venous pressure normal. CHEST: Diminished breath sounds bases. CARDIAC: Irregular rate and rhythm without S3, S4. II/ HSM apex, LLSB. ABDOMEN: Soft, nontender, no hepatosplenomegaly. Bowel sounds present. EXTREMITIES: No clubbing, cyanosis. 1+ pretibial edema. Laboratory Laboratory Tests Test 08/20/17 06:30 Imaging Last 48 hours Impressions Chest X-Ray 08/19/17 0600 Signed Impressions: Service Date/Time: Saturday, August 19, 2017 06:00 - CONCLUSION: Tiny right, small left pleural effusions and mild left base consolidation, unchanged. Adarsh Doe MD Assessment and Plan Problem List: (1) Congestive heart failure ICD Codes: I50.9 - Heart failure, unspecified Status: Acute Plan: Stable overnight. Tiny to small bilateral effusions on last CXR. Appears CHF precipitated by what is likely acute severe mitral regurgitation, ? precipitated by papillary muscle dysfunction. REC await this morning's BMP, consider resume oral furosemide 40 mg qd, continue metoprolol patient to see Dr. Ng at [facility] as outpatient soon after discharge to be considered for MitraClip; from my standpoint, no need for hospital to hospital transfer (2) Mitral valve regurgitation ICD Codes: I34.0 - Nonrheumatic mitral (valve) insufficiency Status: Acute Plan: Severe eccentric MR by echo, severe MR by left ventriculography. MR likely precipitating factor for CHF. Patient to see Dr. Ng at [facility] for consideration of MitraClip. (3) Paroxysmal atrial fibrillation ICD Codes: I48.0 - Paroxysmal atrial fibrillation Status: Acute Plan: Remains in atrial fib. HR's OK. Rec continue Eliquis 5 mg bid. (4) CAD (coronary artery disease) ICD Codes: I25.10 - Atherosclerotic heart disease of [place] coronary artery without angina pectoris Status: Chronic Plan: Stable. No definite angina. No ischemia on recent nuclear stress test. Unchanged coronary/graft anatomy on cath this admission compared to last cath with 3 or 4 grafts patent. Continue medical therapy of his CAD, including daily baby aspirin. (5) Hypertension ICD Codes: I10 - Essential (primary) hypertension Status: Chronic Plan: BP's overall better past 24 hours. Consider [id number] or ARB. Code Status full code Discussed Condition With patient Problem Qualifiers (1) Congestive heart failure: Qualified Codes: I50.9 - Heart failure, unspecified (2) Mitral valve regurgitation: Qualified Codes: I34.0 - Nonrheumatic mitral (valve) insufficiency (3) CAD (coronary artery disease): Qualified Codes: I25.10 - Atherosclerotic heart disease of [place] coronary artery without angina pectoris (4) Hypertension: Qualified Codes: I10 - Essential (primary) hypertension Alexandru Bella MD Aug 20, 2017 07:59
[2017-08-20] MEDS: METOPROLOL TARTRATE 50 MG TAB PO SCH (08:01)
[2017-08-20] MEDS: PANTOPRAZOLE SOD 40 MG DELAYED RELEASE TAB PO SCH (08:01)
[2017-08-20] MEDS: SODIUM CHLORIDE 0.9% FLUSH 10 ML FLUSH IV FLUSH SCH (08:02)
[2017-08-20] MEDS: ASPIRIN 81 MG CHEW TAB CHEW SCH (08:02)
[2017-08-20] MEDS: APIXABAN 5 MG TABLET PO SCH (08:02)
[2017-08-20] MEDS: ATORVASTATIN 80 MG TAB PO SCH (08:07)
[2017-08-20 08:21] LABS: CALCIUM 8.3 MG/DL (8.5-10.1); CREATININE 1.34 MG/DL (0.60-1.30); MAGNESIUM 2.3 MG/DL (1.5-2.5)
[2017-08-20] MEDS ORDERED: METO-309 PO (12:58)
[2017-08-20] MEDS ORDERED: ATOR80TA45 PO (12:58)
[2017-08-20] MEDS ORDERED: LISI2.5T3 PO (12:59)
[2017-08-20] MEDS ORDERED: APIX5TAB PO (14:02)
--- NOTE | 2017-08-20 14:04 | HHI.DS ---
Discharge Summary Admission Date Aug 12, 2017 at 17:30 Discharge Date: Aug 20, 2017 Admitting Diagnosis CHF/Exertional Dyspnea (1) Congestive heart failure Diagnosis: Principal ICD Codes: I50.9 - Heart failure, unspecified Status: Acute (2) Mitral valve regurgitation Diagnosis: Principal ICD Codes: I34.0 - Nonrheumatic mitral (valve) insufficiency Status: Acute (3) Hodgkin lymphoma Diagnosis: Secondary ICD Codes: C81.90 - Hodgkin lymphoma Status: Chronic (4) CAD (coronary artery disease) Diagnosis: Secondary ICD Codes: I25.10 - Atherosclerotic heart disease of [place] coronary artery without angina pectoris Status: Chronic (5) Chronic a-fib Diagnosis: Secondary ICD Codes: I48.2 - Chronic atrial fibrillation Status: Chronic (6) Hypertension Diagnosis: Secondary ICD Codes: I10 - Essential (primary) hypertension Status: Chronic (7) Hyperlipidemia Diagnosis: Secondary ICD Codes: E78.5 - Hyperlipidemia, unspecified Status: Chronic (8) Renal insufficiency Diagnosis: Secondary ICD Codes: N28.9 - Disorder of kidney and ureter, unspecified Status: Acute Consultants Dr. Héctor Bella, Cardiology Dr. Rene Moses, Cardiovascular Surgery Brief History 62-year-old [facility] male with history of coronary artery disease and Hodgkin' s lymphoma presents to the emergency Department with worsening exertional dyspnea over the past several days. Patient was recently admitted for chest pain one week ago, receiving a full cardiac workup including sestamibi stress test on August 06, 2016 which demonstrated no reversible defects but some fixed defects from likely prior infarct. Interestingly his ejection fraction was noted as normal at 62% on the myocardial perfusion scan. He was having chest pain during that admission but has not had chest pain since the discharge. Patient is noted to have atrial fibrillation. He denies significant edema or swelling in his extremities. He denies any change in his diet of late, specifically no increased salt intake. No recent Medication changes. Patient states he can walk approximately 10 feet before becoming extremely winded with chest tightness but no significant pain. This has gotten progressively worse since he left the hospital. 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 No fever, chills, productive cough, abdominal pain, nausea, or diarrhea. EKG performed in triage shows atrial fibrillation with questionable ST changes in the lateral leads. It is noted the patient is not on a diuretic and no anticoagulation other than aspirin. Patient has no known drug allergies. Patient was given IV furosemide in the ER and has diuresed approximately 1-1/2 to 2 L. Ports he feels much improved and can breathe much easier since diuresis per CBC/BMP: 08/18/17 0854 08/20/17 0630 Significant Findings Laboratory Tests Test 08/18/17 08:54 08/18/17 09:03 08/19/17 07:01 08/20/17 06:30 Blood Urea Nitrogen 27 MG/DL (7-18) 23 MG/DL (7-18) 26 MG/DL (7-18) Creatinine 1.53 MG/DL (0.60-1.30) 1.34 MG/DL (0.60-1.30) Random Glucose 140 MG/DL (74-106) Estimat Glomerular Filtration Rate 47 ML/MIN (>89) 57 ML/MIN (>89) 54 ML/MIN (>89) Activated Partial Thromboplast Time 46.2 SEC (24.3-30.1) 54.7 SEC (24.3-30.1) Calcium Level 8.3 MG/DL (8.5-10.1) Imaging Last Impressions Chest X-Ray 08/19/17 0600 Signed Impressions: Service Date/Time: Saturday, August 19, 2017 06:00 - CONCLUSION: Tiny right, small left pleural effusions and mild left base consolidation, unchanged. Adarsh Doe MD Thoracentesis Ultrasound 08/14/17 0000 Signed Impressions: Service Date/Time: Monday, August 14, 2017 13:04 - CONCLUSION: Uncomplicated ultrasound guided thoracentesis. Tony Lorenzo MD CT Angiography 08/12/17 1436 Signed Impressions: Service Date/Time: Saturday, August 12, 2017 16:12 - CONCLUSION: Moderate congestive failure with bilateral pleural effusions larger on the right and moderate size on the left. No central pulmonary emboli. Juan Adhikari MD FACR PE at Discharge General: NAD, AAOx3 Chest: Good air movement bilaterally Cardiac: Irregular, sandra, in the 50's on telemetry Abd: +BS, soft ND/NT Ext: No edema Hospital Course (1) Congestive heart failure ICD Codes: I50.9 - Heart failure, unspecified Status: Acute Plan: Severe mitral valve regurgitation with valvular acute CHF - Pt is a 62 y/o [place] male with CAD and Hodgkin's lymphoma who presented to the ED with worsening exertional dyspnea over the past several days. Patient was recently admitted for chest pain one week prior to this admission and underwent workup which included sestamibi stress test on August 06, 2016 which demonstrated no reversible defects but some fixed defects from likely prior infarct. - Pt was found to have bilateral pleural effusions, right greater than left and underwent right sided thoracentesis on 08/14 with removal of 1350 mL of fluid - 2D echo (08/13) --> Estimated EF 60-65%, Severe mitral valve regurgitation, the MV regurg jet is directed anteriorly, mild to moderate tricuspid valve regurg, estimated PA pressure is 80mmHg - MR likely a precipitating factor for CHF - LHC on 08/15 noted no intervention on coronaries required, severe MR by left ventriculography. - CTS following, they have recommended pt be evaluated at [facility] with Dr. Carlson for MitraClip procedure - Cont. Metoprolol 100mg BID, Norvasc 10mg po daily - Case d/w [facility] Case Management. 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 Héctor Bella (08/20/17) Paroxysmal A. fib CAD - Cardiology, Dr. Bella is following. - No reported ischemia on recent nuclear stress test. - Unchanged coronary/graft anatomy on cath this admission compared to last cath with 3 or 4 grafts patent. - Continue medical therapy of his CAD. - Pt started on Eliquis 5mg po BID JENNIFER - Improving with diuresis - Renal function is stable Hodgkin Lymphoma - Follow with outpatient oncology. Pt Condition on Discharge: Stable Discharge Disposition: Disch w/ Home Health Serv Discharge Instructions DIET: Follow Instructions for: Heart Healthy Diet Activities you can perform: Weight Bearing as Angel Luis Activities to Avoid: Strenuous Activity Follow up Referrals: Cardiology - 1 Week with Alexandru Bella MD PCP Follow-up - [address] Dominick Alston SNF/EMILY/ with [facility] New Medications: Lisinopril (Lisinopril) 2.5 Mg Tab 2.5 MG PO DAILY, #30 TAB 0 Refills Apixaban (Eliquis) 5 Mg Tab 5 MG PO BID for Atrial Fibrillation, #60 TAB 0 Refills Atorvastatin (Atorvastatin) 80 Mg Tab 80 MG PO HS for Cholesterol Management, #30 TAB 0 Refills Metoprolol Tartrate (Lopressor) 50 Mg Tab 100 MG PO BID for htn, #60 TAB 0 Refills Continued Medications: Amlodipine (Amlodipine) 10 Mg Tab 10 MG PO DAILY for Blood Pressure Management, #30 TAB 0 Refills Aspirin (Aspirin) 81 Mg Chew 81 MG CHEW DAILY, TAB 0 Refills Discontinued Medications: Atorvastatin (Atorvastatin) 20 Mg Tab 20 MG PO HS for Cholesterol Management, #30 TAB 0 Refills Metoprolol Tartrate (Metoprolol Tartrate) 50 Mg Tab 50 MG PO BID, #60 TAB 0 Refills Madi Mackenzie DO Aug 20, 2017 14:04
--- NOTE | 2017-08-20 14:08 | HHI.DCPOC ---
Discharge Care Plan Diagnosis: (1) Congestive heart failure (2) Mitral valve regurgitation (3) Chronic a-fib Goals to Promote Your Health * To prevent worsening of your condition and complications * To maintain your health at the optimal level Directions to Meet Your Goals Take your medications as prescribed Follow your dietary instruction Follow activity as directed Keep your appointments as scheduled Take your immunizations and boosters as scheduled If your symptoms worsen call your PCP, if no PCP go to Urgent Care Center or Emergency Room Smoking is Dangerous to Your Health. Avoid second hand smoke Call the 24-hour hour crisis hotline for domestic abuse at Madi Mackenzie DO Aug 20, 2017 14:07
--- NOTE | 2017-08-20 14:37 | HHI.FF ---
Face to Face Verification Diagnosis: (1) Mitral valve regurgitation (2) Congestive heart failure (3) Paroxysmal atrial fibrillation (4) Chronic a-fib Physical Therapy Order: Evaluate and Treat, Improve ambulation, Strength and gait training Home Health Nursing Order: Medical education Signs/symptoms of disease process CHF education Medication education-adverse effect Nursing assessment with vital signs I have seen patient Kamran Parker on 08/20/17. My clinical findings support the need for the requested home health care services because: Patient has SOB Deconditioned w/ increased weakness Med compliance is questionable Limited ability to care for self Need for psychosocial assistance I certify that my clinical findings support that this patient is homebound because: Impaired cognitive ability/safety Unsafe to leave home unassisted Need for psychosocial assistance Unable to use public transportation Madi Mackenzie DO Aug 20, 2017 14:37
[2017-08-20] MEDS ORDERED: FURO1TAB60 PO (14:40)
== END 2017-08-20 15:24 | disposition home health service (06) | DRG 287 ==
LOC: NEPD 12:42 → NEDA 17:30 → N04A 21:25
PROVIDERS: ADMIT Hospitalist; ATTEND Hospitalist
PROC: 0W993ZZ Drainage of Right Pleural Cavity, Percutaneous Approach (ICD-10-PCS; 2017-08-14)
PROC: B2111ZZ Fluoroscopy of Multiple Coronary Arteries using Low Osmolar Contrast (ICD-10-PCS; 2017-08-15)
PROC: B2131ZZ Fluoroscopy of Multiple Coronary Artery Bypass Grafts using Low Osmolar Contrast (ICD-10-PCS; 2017-08-15)
PROC: B2151ZZ Fluoroscopy of Left Heart using Low Osmolar Contrast (ICD-10-PCS; 2017-08-15)
PROC: 4A023N7 Measurement of Cardiac Sampling and Pressure, Left Heart, Percutaneous Approach (ICD-10-PCS; principal; 2017-08-15 13:45)
DX: I11.0 Hypertensive heart disease with heart failure (principal); N17.9 Acute kidney failure, unspecified; C81.90 Hodgkin lymphoma, unspecified, unspecified site; I25.82 Chronic total occlusion of coronary artery; I25.810 Atherosclerosis of coronary artery bypass graft(s) without angina pectoris; I08.1 Rheumatic disorders of both mitral and tricuspid valves; I48.0 Paroxysmal atrial fibrillation; I50.9 Heart failure, unspecified; I25.10 Atherosclerotic heart disease of native coronary artery without angina pectoris; I48.2 Chronic atrial fibrillation; E78.5 Hyperlipidemia, unspecified; N28.9 Disorder of kidney and ureter, unspecified; K21.9 Gastro-esophageal reflux disease without esophagitis; I25.2 Old myocardial infarction; Z82.49 Family history of ischemic heart disease and other diseases of the circulatory system; Z87.891 Personal history of nicotine dependence; Z91.11 Patient's noncompliance with dietary regimen; Z92.21 Personal history of antineoplastic chemotherapy; Z95.1 Presence of aortocoronary bypass graft; Z95.5 Presence of coronary angioplasty implant and graft
CPT/HCPCS: 32555; 71045; 71046; 71275; 80048; 80053; 80076; 82272; 82550; 82552; 82945; 83615; 83735; 83880; 84157; 84484; 85025; 85027; 85610; 85730; 87070; 87205; 89051; 93005; 93306; 93459; 94618; 94664; 96374; 99152; 99153; C1729; C1760; C1769; C1893; G0269; J1644; J1650; J1940; J2250; J3010; J7030; Q0163; Q9967

== ENCOUNTER 2018-07-31 08:09 | Observation (INO) ==
--- NOTE | 2018-07-31 09:04 | ED ---
HPI General Chief Complaint: Chest Pain Stated Complaint: Chest Complaint Time Seen by Provider: 07/31/18 08:24 Source: patient Limitations: no limitations History of Present Illness HPI narrative: Patient is a 63-year-old male, past medical history significant for mitral valve replacement 13 years ago and again last September, in addition to four-vessel CABG with 2-3 previous stents since the CABG, who presents with complaint of chest pain that has been intermittent for the last 4 days and has been more constant since this morning. He does not have any dyspnea, nausea, vomiting. He does not know when his last cath nor stress test were. No leg swelling nor immobilization. He had chills 4 days ago but has not had any fevers. No cough nor congestion. His flight software test engineer is Dr. Bella. He is on Eliquis. complaint: Reports chest pain STEMI Alert: No Onset (ago): day(s) Duration: constant Onset: during rest Pain location: Reports substernal Severity: moderate Quality: Reports dull Pain radiation: Reports none Relieving factors: nothing Exacerbating factors: nothing Treatments prior to arrival chest pain: Reports none Related Data Home Medications Medication Instructions Recorded Confirmed acetaminophen [Tylenol Extra 1,000 mg PO Q6H PRN 07/31/18 07/31/18 Strength] amoxicillin-pot clavulanate 1 tab PO Q12H 07/31/18 07/31/18 apixaban [Eliquis] 5 mg PO BID 07/31/18 07/31/18 aspirin 81 mg PO DAILY 07/31/18 07/31/18 atorvastatin 80 mg PO QPM 07/31/18 07/31/18 carvedilol 12.5 mg PO BID 07/31/18 07/31/18 escitalopram oxalate 10 mg PO DAILY 07/31/18 07/31/18 furosemide 40 mg PO BID 07/31/18 07/31/18 losartan 100 mg PO DAILY 07/31/18 07/31/18 potassium chloride 10 meq PO DAILY 07/31/18 07/31/18 Allergies Allergy/AdvReac Type Severity Reaction Status Date / Time No Known Allergies Allergy Verified 07/31/18 08:27 Review of Systems ROS: all other systems reviewed are negative PENDING SALE TO [facility] Medical History Medical History Hypertension (Acute) Surgical History Surgical History H/O mitral valve repair (Acute) History of angioplasty (Acute) Hx of CABG (Acute) Social History Social History Substance History: No History of Abuse Smoking Status: Former smoker How Often Do You Have a Drink Containing Alcohol: Monthly or less Recent Travel in [facility] within the Last 8 Weeks: No Recent Out of Country Travel within the Last 8 Weeks: No Immunization History Tetanus Immunization: Unsure Exam Narrative Exam Narrative: GENERAL: Well-appearing male in no acute distress SKIN: Focused skin assessment warm/dry. Scar in the middle of the chest. HEAD: Atraumatic. Normocephalic. EYES: Pupils equal and round. No scleral icterus. No injection or drainage. ENT: No nasal bleeding or discharge. Mucous membranes pink and moist. NECK: Trachea midline. No JVD. CARDIOVASCULAR: Regular rate and rhythm. No murmur appreciated. Intact and equal peripheral pulses. RESPIRATORY: No accessory muscle use. Clear to auscultation. Breath sounds equal bilaterally. GASTROINTESTINAL: Abdomen soft, non-tender, nondistended. Hepatic and splenic margins not palpable. MUSCULOSKELETAL: No obvious deformities. No clubbing. No cyanosis. No edema. NEUROLOGICAL: Awake and alert. No obvious cranial nerve deficits. Motor grossly within normal limits. Normal sensation. Normal speech. PSYCHIATRIC: Appropriate mood and affect; insight and judgment normal. Course Reevaluation(s) Reevaluation #1: Pain has improved but is persisting. Topical Nitro has been ordered. His home losartan dose has also been ordered. Time: 09:42 Reevaluation #2: Pain is now relieved. Time: 10:16 Reevaluation #3: I have spoken to the patient's flight software test engineer, Dr. Bella, who would like him to go into the chest pain center. His blood pressure remains elevated and a dose of labetalol has been ordered. Time: 10:39 Initial Documented Vital Signs Temperature 97.8 F 07/31/18 08:18 Pulse Rate 72 07/31/18 08:18 Respiratory Rate 20 07/31/18 08:18 Blood Pressure 216/117 H 07/31/18 08:18 Pulse Oximetry 97 07/31/18 08:18 Last Documented Vital Signs Temperature 97.8 F 07/31/18 08:18 Pulse Rate 65 07/31/18 11:53 Respiratory Rate 18 07/31/18 11:53 Blood Pressure 214/98 H 07/31/18 11:53 Pulse Oximetry 95 07/31/18 11:53 Medical Decision Making MDM Narrative Medical decision making narrative: Patient is a 63-year-old male, past medical history significant for hypertension, CAD, who presents with complaint of chest pain that has been intermittent over the last several days. EKG is without acute ischemic changes. Initial troponin was unremarkable. He was hypertensive on arrival. He was given a sublingual nitro which helped his pain and was then given topical nitroglycerin which relieved his pain. He was given his home losartan. His blood pressure decreased slightly but not very much. He was then given labetalol which still did not show very much movement in his blood pressure. He was then given enalaprilat IV and yet still did not have too much change in his blood pressure. We do not have any IV hydralazine available. His flight software test engineer, Dr. Bella, wanted him to go to the chest pain center for rule out. However, with his uncontrolled hypertension he does not meet the criteria for the chest pain center and thus has been admitted to Dr. Mcnally. Medical Screen Exam Complete: Yes Emergency Medical Condition: Yes Differential Diagnosis Differential Diagnosis: Differential diagnosis includes but is not limited to acute coronary syndrome, pneumonia, pneumothorax. Medical Records Medical records reviewed: Yes I reviewed the patient's medical records. Lab Data Lab results reviewed: Yes I reviewed the patient's lab results. Result diagrams: 07/31/18 08:50 07/31/18 08:50 Lab Results 07/31/18 07/31/18 07/31/18 Range/Units 08:50 08:50 08:50 WBC 7.3 (4.0-11.0) th/mm3 RBC 4.68 (4.50-5.90) mil/mm3 Hgb 12.7 L (13.0-17.0) gm/dL Hct 37.9 L (39.0-51.0) % MCV 80.9 (80.0-100.0) fL MCH 27.1 (27.0-34.0) pg MCHC 33.5 (32.0-36.0) % RDW 14.5 (11.6-17.2) % Plt Count 195 (150-450) th/mm3 MPV 7.9 (7.0-11.0) fL Neut % (Auto) 68.1 (16.0-70.0) % Lymph % (Auto) 17.6 (9.0-44.0) % [place] % (Auto) 8.7 H (0.0-8.0) % Eos % (Auto) 4.8 H (0.0-4.0) % Baso % (Auto) 0.8 (0.0-2.0) % Neut # (Auto) 4.9 (1.8-7.7) th/mm3 Lymph # (Auto) 1.3 (1.0-4.8) th/mm3 [place] # (Auto) 0.6 (0.0-0.9) th/mm3 Eos # (Auto) 0.3 (0.0-0.4) th/mm3 Baso # (Auto) 0.1 (0.0-0.2) th/mm3 WBC Differential . Differential Comment Auto diff final Sodium 139 (136-145) meq/L Potassium 3.6 (3.5-5.1) meq/L Chloride 107 (98-107) meq/L Carbon Dioxide 26.1 (21.0-32.0) meq/L Anion Gap 6 (5-15) meq/L BUN 20 H (7-18) mg/dL Creatinine 1.48 H (0.60-1.30) mg/dL Estimated GFR 48 L (>89) mL/min Random Glucose 85 (74-106) mg/dL Calcium 8.8 (8.5-10.1) mg/dL Total Bilirubin 1.6 H (0.2-1.0) mg/dL AST 68 H (15-37) U/L ALT 94 H (12-78) U/L Alkaline Phosphatase 77 (45-117) U/L Troponin I 0.03 (0.02-0.05) ng/mL B-Natriuretic Peptide 797 H (0-100) pg/mL Total Protein 7.6 (6.4-8.2) g/dL Albumin 3.5 (3.4-5.0) g/dL Imaging Data Attestation: I personally reviewed and interpreted this imaging study as follows : Radiologist's impression: Chest X-Ray 07/31/18 08:41 CONCLUSION: 1. Bibasilar patchiness consistent with possible pneumonia. Clinical relation is recommended. 2. Stable cardiomegaly. 3. Degenerative changes throughout the thoracic spine. ECG Data EKG Prior to Arrival: No Attestation: I personally reviewed and interpreted this ECG as follows: (Sinus rhythm at a rate of 71 bpm. There is some T wave inversion in V1 and V2 with T wave flattening in V5 and V6 but no other ST or T wave changes.) Discharge Plan Discharge Disposition Patient Disposition: ED Admit(ED Internal Use Only) Discharge Condition Condition: Stable Discharge Order Discharge Orders: ED Use Only Admit Order (Routine); Ordered 07/31/18 Ordered By: Dilcia Kirkland Discharge Details Diagnosis: Chest pain, rule out acute myocardial infarction, Hypertension Physicians Team ED Provider: Dilcia Kirkland Primary Care Provider: Dominick Alston Rxs /Orders / Referrals /Forms Prescriptions: No Action furosemide 40 mg Tablet 40 mg PO BID RF: 0 atorvastatin 80 mg Tablet 80 mg PO QPM RF: 0 potassium chloride 10 mEq Capsule, Extended Release 10 meq PO DAILY RF: 0 carvedilol 12.5 mg Tablet 12.5 mg PO BID RF: 0 acetaminophen [Tylenol Extra Strength] 500 mg Tablet 1,000 mg PO Q6H PRN (Reason: Pain) RF: 0 aspirin 81 mg Tablet,Chewable 81 mg PO DAILY RF: 0 losartan 100 mg Tablet 100 mg PO DAILY RF: 0 amoxicillin-pot clavulanate 875-125 mg Tablet 1 tab PO Q12H RF: 0 escitalopram oxalate 10 mg Tablet 10 mg PO DAILY RF: 0 apixaban [Eliquis] 5 mg Tablet 5 mg PO BID RF: 0 Discharge Instructions Patient Printed Instructions: Chest Pain (ED) Discharge Interventions Interventions: Vital Signs Last Done: 07/31/18 09:21 Status ED Status: Pending Admission
[2018-07-31 09:08] LABS: Baso # (Auto) 0.1 th/mm3 (0.0-0.2); Baso % (Auto) 0.8 % (0.0-2.0); Eos # (Auto) 0.3 th/mm3 (0.0-0.4); Eos % (Auto) 4.8 % (0.0-4.0); Hematocrit 37.9 % (39.0-51.0); Hemoglobin 12.7 gm/dL (13.0-17.0); Lymph # (Auto) 1.3 th/mm3 (1.0-4.8); Lymph % (Auto) 17.6 % (9.0-44.0); Mean Corpuscular HGB Conc 33.5 % (32.0-36.0); Mean Corpuscular Hemoglobin 27.1 pg (27.0-34.0); Mean Corpuscular Volume 80.9 fL (80.0-100.0); Mean Platelet Volume 7.9 fL (7.0-11.0); Mono # (Auto) 0.6 th/mm3 (0.0-0.9); Mono % (Auto) 8.7 % (0.0-8.0); Neut # (Auto) 4.9 th/mm3 (1.8-7.7); Neut % (Auto) 68.1 % (16.0-70.0); Platelet Count 195 th/mm3 (150-450); Red Blood Count 4.68 mil/mm3 (4.50-5.90); Red Cell Distribution Width 14.5 % (11.6-17.2); White Blood Count 7.3 th/mm3 (4.0-11.0)
--- NOTE | 2018-07-31 09:20 | XR ---
EXAM DATE: 07/31/2018 9:10 AM EST AGE/SEX: 63 years / Male INDICATIONS: Chest pain and shortness of breath for one week CLINICAL DATA: This is the patient's initial encounter. Patient reports that signs and symptoms have been present for 1 week and indicates a pain score of 7/10. MEDICAL/SURGICAL HISTORY: Cardiovascular disease. . cardiac valve replaced COMPARISON: [facility] [place], 08/[place]. . FINDINGS: Bibasilar patchiness is noted consistent with possible pneumonia. Clinical correlation is recommended . The heart is enlarged. Median sternotomy wires are noted status post cardiac surgery. Degenerative changes are noted throughout the thoracic spine. CONCLUSION: 1. Bibasilar patchiness consistent with possible pneumonia. Clinical relation is recommended. 2. Stable cardiomegaly. 3. Degenerative changes throughout the thoracic spine. Electronically signed by: Gadiel Villar MD Board Certified Radiologist 07/31/2018 9:19 AM EST
[2018-07-31 09:28] LABS: Albumin 3.5 g/dL (3.4-5.0); Anion Gap 6 meq/L (5-15); Aspartate Aminotransferase 68 U/L (15-37); Blood Urea Nitrogen 20 mg/dL (7-18); Calcium 8.8 mg/dL (8.5-10.1); Carbon Dioxide 26.1 meq/L (21.0-32.0); Chloride 107 meq/L (98-107); Glomerular Filtration Rate 48 mL/min (>89); Glucose,Random 85 mg/dL (74-106); Potassium 3.6 meq/L (3.5-5.1); Sodium 139 meq/L (136-145)
[2018-07-31 09:33] LABS: Alanine Aminotransferase 94 U/L (12-78); Alkaline Phosphatase 77 U/L (45-117); Total Protein 7.6 g/dL (6.4-8.2); Troponin I 0.03 ng/mL (0.02-0.05)
[2018-07-31] MEDS ORDERED: Labetalol HCl Inj 100 MG/20 ML Vial IV.PUSH ONE (10:30)
[2018-07-31] MEDS ORDERED: Acetaminophen 325 MG Tablet PO PRN (13:53)
--- NOTE | 2018-07-31 14:09 | P.HPIM ---
History of Present Illness Primary Care Physician: Dominick Alston MD Chief Complaint: Chest pain History of Present Illness: Mr. Parker is a pleasant 63 y/o male with HTN, CAD, hx of atrial fibrillation, and hx valvular CHF related to severe MVR but his valve was repaired in 10/2017. Pt presented to the ED at [facility] on 07/31/18 due to elevated BP. Pt was seen at [facility] urgent care on 07/28/17 with a fever in the evening and some phlegm in his throat but denies any cough, sore throat, sinus congestion. But he reported that he had been having some dental pain and swelling. He was started on Augmentin for the dental infection with improvement in the swelling/pain which was prescribed for 10 days. He was seen at [facility] urgent care in followup today and his BP was quite elevated and they referred him to the ED. He states that over the last few days he has had intermittent chest pain and SOB. The pain is located in the middle of the chest. This can occur at rest or with activity and is described as a pressure like sensation. Pt reports that he recently had changes to his antihypertensive meds. He was changed from Amlodipine to Minoxidil around 3 weeks ago and then two days ago he was taken off the Minoxidil to Losartan 100mg daily two days ago. He states that he wanted to be taken off the Norvasc because he read an article that reported meterman use of this medication has carcinogenic effects. Past Medical Hx: HTN CAD Hx of MVR s/p minimally invasive MV repair in 10/2017 HTN Atrial fibrillation Hyperlipidemia Hx of Non Hodgkin's lymphoma Past Surgical Hx: Minimally invasive MV repair in 10/2017 in [place]. 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 from the [facility] helper Diagnosis (1) Hypertension: (2) Chest pain, rule out acute myocardial infarction: (3) Dental infection: (4) JENNIFER (acute kidney injury): Medications and Allergies Allergies Allergy/AdvReac Type Severity Reaction Status Date / Time No Known Allergies Allergy Verified 07/31/18 08:27 Home Medications Medication Instructions Recorded Confirmed Type acetaminophen [Tylenol Extra 1,000 mg PO Q6H PRN 07/31/18 07/31/18 History Strength] amoxicillin-pot clavulanate 1 tab PO Q12H 07/31/18 07/31/18 History apixaban [Eliquis] 5 mg PO BID 07/31/18 07/31/18 History aspirin 81 mg PO DAILY 07/31/18 07/31/18 History atorvastatin 80 mg PO QPM 07/31/18 07/31/18 History carvedilol 12.5 mg PO BID 07/31/18 07/31/18 History escitalopram oxalate 10 mg PO DAILY 07/31/18 07/31/18 History furosemide 40 mg PO BID 07/31/18 07/31/18 History losartan 100 mg PO DAILY 07/31/18 07/31/18 History potassium chloride 10 meq PO DAILY 07/31/18 07/31/18 History Active Medications: Active Medications Acetaminophen (Tylenol) 650 mg PO Q4H PRN PRN Reason: Temp > 100.4 Al Hydroxide/Mg Hydroxide (Milk Of Magnester Liq) 30 ml PO Q12H PRN PRN Reason: Mild Constipation Apixaban (Eliquis) 5 mg PO BID [facility] Aspirin (Aspirin Chew) 81 mg PO DAILY [facility] Atorvastatin Calcium (Lipitor) 80 mg PO QPM [facility] Carvedilol (Coreg) 12.5 mg PO BID [facility] Escitalopram Oxalate (Lexapro) 10 mg PO DAILY [facility] Ondansetron HCl (Zofran Inj) 4 mg IV.PUSH Q6H PRN PRN Reason: NAUSEA OR VOMITING Senna/Docusate Sodium (Susie-Colace) 1 tab PO BID [facility] Sodium Chloride (Ns Flush) 2 ml IV.FLUSH UNSCH PRN PRN Reason: FLUSH AFTER USING IV ACCESS Last Admin: 07/31/18 11:25 Dose: 2 ml Sodium Chloride (Ns Flush) 2 ml IV.FLUSH PRN PRN PRN Reason: FLUSH AFTER USING IV ACCESS Sodium Chloride (Ns Flush) 2 ml IV.FLUSH BID [facility] Physical Exam Vital signs: Last Vital Signs Temp 97.8 F 07/31/18 08:18 Pulse 66 07/31/18 13:53 Resp 20 07/31/18 13:53 BP 185/96 H 07/31/18 13:53 Pulse Ox 97 07/31/18 13:53 Narrative: GENERAL: NAD, AAOx3 SKIN: Warm and dry. HEENT: Atraumatic. Normocephalic. Pupils equal and round. No scleral icterus. No injection or drainage. No nasal bleeding or discharge. Mucous membranes pink and moist. NECK: Trachea midline. No JVD. CARDIO: Regular rate and rhythm. RESP: No accessory muscle use. Slight wheeze at the right base with coughing. ABD: +BS, soft, non-tender, nondistended. Hepatic and splenic margins not palpable. EXT: No edema. No obvious deformities. NEURO: Awake and alert. Motor grossly within normal limits. Five out of 5 muscle strength in the arms and legs. Normal speech. PSYCH: Appropriate mood and affect; insight and judgment normal. Results Labs CBC & Chem 7: 07/31/18 08:50 07/31/18 08:50 Imaging Chest X-Ray 07/31/18 08:41 CONCLUSION: 1. Bibasilar patchiness consistent with possible pneumonia. Clinical relation is recommended. 2. Stable cardiomegaly. 3. Degenerative changes throughout the thoracic spine. Caprini VTE Risk Assessment Caprini VTE Risk Assessment: Moderate/High Risk (score >= 2) Caprini Risk Assessment Model: Point Value = 1 Point Value = 2 Point Value = 3 Point Value = 5 Age 41-60 Minor surgery BMI > 25 kg/m2 Swollen legs Varicose veins or History of unexplained or recurrent spontaneous Oral contraceptives or hormone replacement Sepsis (< 1 month) Serious lung disease, including pneumonia (< 1 month) Abnormal pulmonary function Acute myocardial infarction Congestive heart failure (< 1 month) History of inflammatory bowel disease Medical patient at bed rest Age 61-74 Arthroscopic surgery Major open surgery (> 45 min) Laparoscopic surgery (> 45 min) Malignancy Confined to bed (> 72 hours) Immobilizing plaster cast Central venous access Age >= 75 History of VTE Family history of VTE Factor V Leiden Prothrombin [id number] Lupus anticoagulant Anticardiolipin antibodies Elevated serum homocysteine Heparin-induced thrombocytopenia Other congenital or acquired thrombophilia Stroke (< 1 month) Elective arthroplasty Hip, pelvis, or leg fracture Acute spinal cord injury (< 1 month) Prophylaxis Regimen: Total Risk Factor Score Risk Level Prophylaxis Regimen 0-1 Low Early ambulation 2 Moderate Order ONE of the following: *Sequential Compression Device (SCD) *Heparin 5000 units SQ BID 3-4 Higher Order ONE of the following medications: *Heparin 5000 units SQ TID *Enoxaparin/Lovenox 40 mg SQ daily (WT < 150 kg, CrCl > 30 mL/min) *Enoxaparin/Lovenox 30 mg SQ daily (WT < 150 kg, CrCl > 10-29 mL/min) *Enoxaparin/Lovenox 30 mg SQ BID (WT < 150 kg, CrCl > 30 mL/min) AND/OR *Sequential Compression Device (SCD) 5 or more Highest Order ONE of the following medications: *Heparin 5000 units SQ TID (Preferred with Epidurals) *Enoxaparin/Lovenox 40 mg SQ daily (WT < 150 kg, CrCl > 30 mL/min) *Enoxaparin/Lovenox 30 mg SQ daily (WT < 150 kg, CrCl > 10-29 mL/min) *Enoxaparin/Lovenox 30 mg SQ BID (WT < 150 kg, CrCl > 30 mL/min) AND *Sequential Compression Device (SCD) Assessment and Plan Assessment (1) Hypertension: Code(s): I10 - Essential (primary) hypertension Status: Chronic (2) Chest pain, rule out acute myocardial infarction: Code(s): R07.9 - Chest pain, unspecified Status: Acute (3) Dental infection: Code(s): K04.7 - Periapical abscess without sinus Status: Acute (4) JENNIFER (acute kidney injury): Code(s): N17.9 - Acute kidney failure, unspecified Status: Acute Plan Chest pain CAD with hx of CABG x 4 in 2005 Poorly controlled HTN Hx of valvular CHF s/p MVR in 10/2017 - Pt is a 63 y/o male with HTN, CAD, hx of atrial fibrillation, and hx valvular CHF related to severe MVR but his valve was repaired in 10/2017. - Pt presented to the ED at [facility] on 07/31/18 due to elevated BP and chest pain. Pt was seen at [facility] urgent care on 07/28/17 with a fever and some phlegm in his throat. But he reported that he had been having some dental pain and swelling. He had a CXR at that time that reported small bilateral pleural effusions but denies any cough, sore throat, sinus congestion. He was started on Augmentin for the dental infection with improvement in the swelling/pain which was prescribed for 10 days. He was seen at [facility] urgent care in followup today and his BP was quite elevated and they referred him to the ED. He states that over the last few days he has had intermittent chest pain and SOB. The pain is located in the middle of the chest without radiation, occurring at rest or with activity and is described as a pressure like sensation. Pt reports that he recently had changes to his antihypertensive meds. He was changed from Amlodipine to Minoxidil around 3 weeks ago and then two days ago he was taken off the Minoxidil and started on Losartan 100mg daily two days ago. - His BP in the ED noted SBP over 200 - He was given a dose of Vasotec and Losartan 100mg in the ED without significant improvement. Pt reportedly took his normal regimen of BP meds this morning. - Stop the Losartan. Start Procardia XL 30mg BID, first dose now - Resume Coreg 12.5mg BID - Hold his Lasix for now as his Cr is elevated above his baseline Cr of 1.05 in 05/2018. Pts Lasix dose had been reduced several month ago from 20mg BID to 20mg daily due to elevated Cr at that time. - Serial CE and EKGs - Consult pts net finisher, Dr. Bella. - Pt reports his last 2D echo was when he had his MV repair in 10/2017. Repeat 2D echo - Vasotec and Clonidine PRN - Supportive care - DVT prophylaxis with SCDs JENNIFER - Pts Cr elevated above baseline on Cr 1.05 from labs in 05/2018. - Hold home dose of Lasix for now - Repeat labs in AM Dental infection - Pt had reported recent dental infection. He was started on Augmentin 3 days ago with improvement in the swelling and pain he had been having - Cont. Augmentin - Pt has an appt with his dentist, Dr. Zepeda, on Saturday08/04/18 Attending Attestation Patient examined. Assessment and plan formulated with Promise Perea PA-C. I agree with the above. uncontrolled htn. dc arb. add ccb. cont augmentin for dental infection consult his net finisher for cp. ce's trend. _ (1) Hypertension Qualifiers: Hypertension type:
[2018-07-31 15:11] LABS: Troponin I 0.03 ng/mL (0.02-0.05)
--- NOTE | 2018-07-31 16:09 | ECG ---
Date Performed: 07/31/2018 Time Performed: 08:29:46 PTAGE: 63 years EKG: Sinus rhythm POSSIBLE RIGHT VENTRICULAR CONDUCTION DELAY NONSPECIFIC T-WAVE ABNORMALITY When compared to previous tracing, sinus rhythm has replaced Atrial fibrillation. BORDERLINE ECG PREVIOUS TRACING : 08/12/2017 13.26 DOCTOR: Lucian Florez Interpretating Date/Time 07/31/2018 16:09:12
[2018-07-31] MEDS: Amoxicillin/Clavulanate 875/125 MG Tablet PO SCH (16:18)
[2018-07-31] MEDS ORDERED: Regadenoson Inj 0.4 MG/5 ML Syringe IV.PUSH ONE (17:22)
[2018-07-31] MEDS: amLODIPine 10 MG Tablet PO SCH (18:55)
--- NOTE | 2018-07-31 18:59 | MB ---
cc: Alexandru Bella MD DATE: 07/31/2018 REASON FOR CONSULTATION: Chest pain, hypertension. HISTORY OF PRESENT ILLNESS: The patient is a 63-year-old [place] male with a history of paroxysmal atrial fibrillation, coronary artery disease, hypertension, hyperlipidemia, Hodgkin's lymphoma, severe mitral regurgitation, status post mitral valve repair in [place] in 09/2017, who presented to the hospital with an approximately 10-day history of intermittent left parasternal chest discomfort described as "pressure" without associated shortness of breath, nausea or diaphoresis. The chest discomforts have inconsistently been related to exertion. For the most part, the chest pains never last more than a few minutes. Recently, he did have his amlodipine stopped as he had concerns about its carcinogenic effects long-term, and he was switched to minoxidil, which resulted in poor blood pressure control. He denies pleurisy, dizziness, syncope, near syncope, palpitations, pedal edema, paroxysmal nocturnal dyspnea. PAST MEDICAL HISTORY: 1. Paroxysmal atrial fibrillation, dating back to 2004 when he had postoperative atrial fibrillation after his bypass surgery. He had recurrent atrial fibrillation 08/13/2017, undergoing cardioversion 09/04/2017. He finally underwent a Maze procedure and ligation of the left atrial appendage in [place] 10/18/2017 at the time of his mitral valve surgery. 2. Coronary artery disease status post bypass surgery in 2004 with a left internal mammary artery to the LAD and 3 separate vein grafts to the obtuse marginal, posterior descending artery, and posterolateral branch. In December 2010, he underwent stent of the [place] LAD distal to the anastomosis site with a 2.25 mm Cypher stent and stent of the [place] obtuse marginal with a 2.25 mm Cypher stent through the graft. At that time, his vein graft to the posterolateral branch and vein graft to the posterior descending artery were patent. On a heart catheterization 10/26/2013, his vein graft to the posterolateral branch was found to be occluded and there was felt to be a 60% proximal lesion in the vein graft to the posterior descending artery with fractional flow reserve measurement 0.95. His last heart catheterization was 08/15/2017 showing all grafts and stents patent except for the known occluded vein graft to the posterolateral branch. At that time, the 60% lesion in the vein graft to the posterior descending artery was not as evident. 3. Hyperlipidemia. 4. Hypertension. 5. History of Hodgkin's lymphoma. 6. History of severe mitral regurgitation, status post minimally invasive mitral valve repair with anterolateral commissural plication 10/18/2017 in [place]. CARDIAC MEDICATIONS AT HOME: 1. Aspirin 81 mg daily. 2. Apixaban 5 mg b.i.d. 3. Furosemide 40 mg b.i.d. 4. Losartan 100 mg daily. 5. Carvedilol 12.5 mg b.i.d. 6. Atorvastatin 80 mg at bedtime. 7. Potassium chloride 10 mEq daily. ALLERGIES: NO KNOWN DRUG ALLERGIES. FAMILY HISTORY: Noncontributory. SOCIAL HISTORY: The patient is a former smoker. There is no history of alcohol abuse. REVIEW OF SYSTEMS: As in the history of present illness, otherwise negative or noncontributory. He also denies headache, abdominal pain, melena, dyspepsia, bright red blood per rectum. PHYSICAL EXAMINATION: VITAL SIGNS: His blood pressure 196/108 with a pulse of 66, respirations 20. GENERAL: He is a well-developed, well-nourished, [place] male in no acute distress. NECK: Jugular venous pressure is normal. Carotid pulses are 2+ bilaterally and without bruits. LUNGS: Reveals unlabored respiratory effort with diminished breath sounds at the bases. CARDIAC: He has a regular rhythm and rate without S3, S4, or murmur. ABDOMEN: He has a soft, nontender abdomen. Bowel sounds are present. There is no definite hepatosplenomegaly. EXTREMITIES: Reveals no clubbing, cyanosis or edema. LABORATORY DATA: EKG shows sinus rhythm, nonspecific T-wave abnormalities. Chest x-ray shows bibasilar opacities, consider pneumonia. LABORATORY DATA: Normal CBC. Potassium 3.6, BUN 20, creatinine 1.48. Troponin 0.03. AST 60, ALT 94, total bilirubin 1.6. B-natriuretic peptide level 797. IMPRESSION: Ongoing chest pains, some atypical for myocardial ischemia, some suggestive of recurrent angina, elevated blood pressures recently in this 63-year-old [place] male with a history of coronary artery disease, paroxysmal atrial fibrillation, hypertension, hyperlipidemia, mitral regurgitation, status post mitral valve repair 10/18/2017. Cardiac enzymes are negative for myocardial infarction. EKG shows only nonspecific changes. He did have favorable findings on his last heart catheterization about 12 months ago. Of note, roughly coinciding with the onset of these chest pains, his blood pressures have been suboptimal. We did change his amlodipine to minoxidil due to his concerns regarding the possible carcinogenic effects of amlodipine long-term. Losartan was most recently added with still suboptimal control. At this point, he is agreeable to resuming the amlodipine. RECOMMENDATIONS: 1. Resume amlodipine 10 mg daily and continue the losartan. 2. Consider the addition of Catapres. 3. Check a Lexiscan nuclear stress test in the morning to rule out significant myocardial ischemia. Unless there is severe or a large amount of ischemia demonstrated would recommend medical therapy. MD SHEA Aguilar/lai/katie , 05:21 PM , 05:33 PM ZULEIKA
--- NOTE | 2018-07-31 19:23 | ECG ---
Date Performed: 07/31/2018 Time Performed: 14:29:18 PTAGE: 63 years EKG: Sinus rhythm POSSIBLE RIGHT VENTRICULAR CONDUCTION DELAY NONSPECIFIC T-WAVE ABNORMALITY BORDERLINE ECG No signifi cant change from prior electrocardiogram. PREVIOUS TRACING : 07/31/2018 08.29 DOCTOR: Ramírez Manjarrez Interpretating Date/Time 07/31/2018 19:21:45
[2018-07-31] MEDS: Carvedilol 12.5 MG Tablet PO SCH (21:10)
[2018-07-31] MEDS: Senna/Docusate Sodium 8.6/50 MG Tablet PO SCH (21:11)
[2018-07-31 21:47] LABS: Troponin I 0.02 ng/mL (0.02-0.05)
[2018-08-01] MEDS: Amoxicillin/Clavulanate 875/125 MG Tablet PO SCH ×2 (03:06→15:37)
--- NOTE | 2018-08-01 05:31 | ECG ---
Date Performed: 07/31/2018 Time Performed: 21:43:35 PTAGE: 63 years EKG: Sinus rhythm NONSPECIFIC ST & T-WAVE ABNORMALITY BORDERLINE ECG No significant change from prior electrocardiogra m. PREVIOUS TRACING : 07/31/2018 14.29 DOCTOR: Ramírez Manjarrez Interpretating Date/Time 08/01/2018 05:30:52
[2018-08-01 07:56] LABS: Baso # (Auto) 0.1 th/mm3 (0.0-0.2); Baso % (Auto) 0.8 % (0.0-2.0); Eos # (Auto) 0.3 th/mm3 (0.0-0.4); Eos % (Auto) 3.8 % (0.0-4.0); Hemoglobin 11.9 gm/dL (13.0-17.0); Lymph # (Auto) 1.5 th/mm3 (1.0-4.8); Lymph % (Auto) 16.3 % (9.0-44.0); Mean Corpuscular HGB Conc 33.8 % (32.0-36.0); Mean Corpuscular Hemoglobin 27.4 pg (27.0-34.0); Mean Corpuscular Volume 80.8 fL (80.0-100.0); Mean Platelet Volume 8.8 fL (7.0-11.0); Mono # (Auto) 0.6 th/mm3 (0.0-0.9); Neut # (Auto) 6.5 th/mm3 (1.8-7.7); Neut % (Auto) 72.1 % (16.0-70.0); Platelet Count 200 th/mm3 (150-450); Red Blood Count 4.33 mil/mm3 (4.50-5.90); Red Cell Distribution Width 14.8 % (11.6-17.2)
[2018-08-01] MEDS: Senna/Docusate Sodium 8.6/50 MG Tablet PO SCH (08:01)
[2018-08-01] MEDS: Carvedilol 12.5 MG Tablet PO SCH (08:01)
[2018-08-01] MEDS: amLODIPine 10 MG Tablet PO SCH (08:05)
[2018-08-01 08:27] LABS: Alanine Aminotransferase 73 U/L (12-78)
[2018-08-01 08:30] LABS: Alkaline Phosphatase 68 U/L (45-117); Total Protein 7.1 g/dL (6.4-8.2)
[2018-08-01 08:36] LABS: Albumin 3.1 g/dL (3.4-5.0); Anion Gap 11 meq/L (5-15); Aspartate Aminotransferase 52 U/L (15-37); Blood Urea Nitrogen 18 mg/dL (7-18); Calcium 8.9 mg/dL (8.5-10.1); Carbon Dioxide 24.4 meq/L (21.0-32.0); Chloride 106 meq/L (98-107); Glomerular Filtration Rate 51 mL/min (>89); Glucose,Random 82 mg/dL (74-106); Sodium 141 meq/L (136-145)
[2018-08-01 08:38] LABS: Potassium 3.9 meq/L (3.5-5.1)
[2018-08-01 08:49] LABS: Ovalocytes 1+
[2018-08-01] MEDS ORDERED: Escitalopram 10 MG Tablet PO SCH (09:00)
--- NOTE | 2018-08-01 10:12 | P.PNIM ---
Subjective Interval history: No complaints of chest pain this morning. He is planned for Lexiscan today Physical Exam Vital signs: Last Vital Signs Temp 97.9 F 08/01/18 08:00 Pulse 62 08/01/18 08:00 Resp 17 08/01/18 08:00 BP 182/108 H 08/01/18 08:00 Pulse Ox 96 08/01/18 08:00 Narrative: GENERAL: NAD, AAOx3 CARDIO: Regular RESP: No accessory muscle use. Slight wheeze at the right base with coughing. ABD: +BS, soft, non-tender, nondistended. Hepatic and splenic margins not palpable. EXT: No edema. No obvious deformities. Results Labs CBC & Chem 7: 08/01/18 07:10 08/01/18 07:10 Assessment and Plan Assessment (1) Hypertension: Code(s): I10 - Essential (primary) hypertension Status: Chronic (2) Chest pain, rule out acute myocardial infarction: Code(s): R07.9 - Chest pain, unspecified Status: Acute (3) Dental infection: Code(s): K04.7 - Periapical abscess without sinus Status: Acute (4) JENNIFER (acute kidney injury): Code(s): N17.9 - Acute kidney failure, unspecified Status: Acute Plan Chest pain CAD with hx of CABG x 4 in 2005 Poorly controlled HTN Hx of valvular CHF s/p MVR in 10/2017 - Pt is a 63 y/o male with HTN, CAD, hx of atrial fibrillation, and hx valvular CHF related to severe MVR but his valve was repaired in 10/2017. - Pt presented to the ED at [facility] on 07/31/18 due to elevated BP and chest pain. Pt was seen at [facility] urgent care on 07/28/17 with a fever and some phlegm in his throat. But he reported that he had been having some dental pain and swelling. He had a CXR at that time that reported small bilateral pleural effusions but denies any cough, sore throat, sinus congestion. He was started on Augmentin for the dental infection with improvement in the swelling/pain which was prescribed for 10 days. He was seen at [facility] urgent care in followup today and his BP was quite elevated and they referred him to the ED. He states that over the last few days he has had intermittent chest pain and SOB. The pain is located in the middle of the chest without radiation, occurring at rest or with activity and is described as a pressure like sensation. Pt reports that he recently had changes to his antihypertensive meds. He was changed from Amlodipine to Minoxidil around 3 weeks ago and then two days ago he was taken off the Minoxidil and started on Losartan 100mg daily two days ago. - His BP in the ED noted SBP over 200 - He was given a dose of Vasotec and Losartan 100mg in the ED without significant improvement. Pt reportedly took his normal regimen of BP meds this morning. - Coreg 12.5mg BID resumed at admission - Hold his Lasix for now as his Cr is elevated above his baseline Cr of 1.05 in 05/2018. Pts Lasix dose had been reduced several month ago from 20mg BID to 20mg daily due to elevated Cr at that time. - Serial CE and EKGs are negative. 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 - Per Cardiology recommendations, cont. Norvasc 10mg daily and Losartan 100mg daily. BP still quite elevated today but Losartan was not restarted last night. Give first dose this morning. - Pt is planned for Lexiscan today - 2D echo ordered - Vasotec and Clonidine PRN - Supportive care - DVT prophylaxis with SCDs JENNIFER - Pts Cr elevated (1.48) above baseline on Cr 1.05 from labs in 05/2018. - Hold home dose of Lasix for now - Repeat labs this morning with Cr 1.42 Dental infection - Pt had reported recent dental infection. He was started on Augmentin 3 days ago with improvement in the swelling and pain he had been having - Cont. Augmentin - Pt has an appt with his dentist, Dr. Zepeda, on Saturday08/04/18 Attending Attestation Patient examined. Assessment and plan formulated with Promise Perea PA-C. I agree with the above. pt pedrito no reversible ischemia. 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 no lhc. dr Bella adjuted his bp meds. he wants norvasc 10mg daily, clonidine .2mg tid, losartan 100mg po daily plus all of his usual meds. Ok to dc per cardiology. pt begging for dc. he will check bp 2or 3x per day and if dizzy or lightheaded. call office with sx's was expressed to pt. he understood. his last sbp was 160 then 150. feels well. Progress Note: Quality VTE Deep Vein Thrombosis/Pulmonary Embolism Present on Admission: No _ (1) Hypertension Qualifiers: Hypertension type:
--- NOTE | 2018-08-01 12:37 | P.PNCA ---
Subjective Interval history: No further CP. No dyspnea, palpitations. Slightly dizzy upon standing. Medications and Allergies Active Medications: Active Medications Acetaminophen (Tylenol) 650 mg PO Q4H PRN PRN Reason: Temp > 100.4 Al Hydroxide/Mg Hydroxide (Milk Of Mahad Hernandez) 30 ml PO Q12H PRN PRN Reason: Mild Constipation Amlodipine Besylate (Norvasc) 10 mg PO DAILY [facility] Last Admin: 08/01/18 08:05 Dose: 10 mg Amoxicillin/Clavulanate Potassium (Augmentin 875/125 Mg) 1 tab PO Q12H [facility] Last Admin: 08/01/18 03:06 Dose: 1 tab Apixaban (Eliquis) 5 mg PO BID [facility] Last Admin: 08/01/18 08:00 Dose: 5 mg Aspirin (Aspirin Chew) 81 mg PO DAILY [facility] Last Admin: 08/01/18 08:01 Dose: 81 mg Atorvastatin Calcium (Lipitor) 80 mg PO DAILY@1800 [facility] Last Admin: 07/31/18 19:09 Dose: 80 mg Carvedilol (Coreg) 12.5 mg PO BID [facility] Last Admin: 08/01/18 08:01 Dose: 12.5 mg Clonidine HCl (Catapres) 0.1 mg PO Q6H PRN PRN Reason: systolic BP 170 or greater Last Admin: 08/01/18 09:49 Dose: 0.1 mg Enalaprilat (Vasotec Inj) 1.25 mg IV.PUSH Q6H PRN PRN Reason: SBP 170 or greater Last Admin: 08/01/18 02:49 Dose: 1.25 mg Escitalopram Oxalate (Lexapro) 10 mg PO DAILY [facility] Last Admin: 08/01/18 08:01 Dose: 10 mg Losartan Potassium (Cozaar) 100 mg PO DAILY [facility] Last Admin: 08/01/18 10:47 Dose: 100 mg Ondansetron HCl (Zofran Inj) 4 mg IV.PUSH Q6H PRN PRN Reason: NAUSEA OR VOMITING Senna/Docusate Sodium (Susie-Colace) 1 tab PO BID [facility] Last Admin: 08/01/18 08:01 Dose: 1 tab Sodium Chloride (Ns Flush) 2 ml IV.FLUSH UNSCH PRN PRN Reason: FLUSH AFTER USING IV ACCESS Last Admin: 07/31/18 11:25 Dose: 2 ml Sodium Chloride (Ns Flush) 2 ml IV.FLUSH PRN PRN PRN Reason: FLUSH AFTER USING IV ACCESS Sodium Chloride (Ns Flush) 2 ml IV.FLUSH BID [facility] Last Admin: 08/01/18 08:04 Dose: 2 ml Allergies Allergy/AdvReac Type Severity Reaction Status Date / Time No Known Allergies Allergy Verified 07/31/18 08:27 Home Medications Medication Instructions Recorded Confirmed Type acetaminophen [Tylenol Extra 1,000 mg PO Q6H PRN 07/31/18 07/31/18 History Strength] amoxicillin-pot clavulanate 1 tab PO Q12H 07/31/18 07/31/18 History apixaban [Eliquis] 5 mg PO BID 07/31/18 07/31/18 History aspirin 81 mg PO DAILY 07/31/18 07/31/18 History atorvastatin 80 mg PO QPM 07/31/18 07/31/18 History carvedilol 12.5 mg PO BID 07/31/18 07/31/18 History escitalopram oxalate 10 mg PO DAILY 07/31/18 07/31/18 History furosemide 40 mg PO BID 07/31/18 07/31/18 History losartan 100 mg PO DAILY 07/31/18 07/31/18 History potassium chloride 10 meq PO DAILY 07/31/18 07/31/18 History Physical Exam Vital signs: Vital Signs 07/31/18 13:34 07/31/18 13:53 07/31/18 16:26 Temperature Pulse Rate 64 66 Respiratory Rate 16 20 Blood Pressure 196/100 H 185/96 H 196/108 H Pulse Oximetry 94 L 97 07/31/18 18:19 07/31/18 20:00 08/01/18 00:00 Temperature 98.1 F 98 F Pulse Rate 65 67 63 Respiratory Rate 18 18 Blood Pressure 180/100 H 179/98 H Pulse Oximetry 97 92 L 08/01/18 02:35 08/01/18 04:00 08/01/18 08:00 Temperature 98.1 F 97.9 F Pulse Rate 60 62 Respiratory Rate 17 17 Blood Pressure 176/93 H 189/98 H 182/108 H Pulse Oximetry 94 L 96 08/01/18 10:00 Temperature Pulse Rate Respiratory Rate Blood Pressure 201/100 H Pulse Oximetry Intake & Output 07/31/18 08/01/18 08/01/18 18:59 06:59 18:59 Intake Total 120 / 120 Output Total 1600 / 1600 Balance -1480 / -1480 Weight 87.09 kg 85.6 kg Intake: Oral 120 / 120 Output: Urine 1600 / 1600 Other: Date of Last Bowel Movement 08/01/18 Weight On Admission 86.2 kg - Constitutional no acute distress - Routine Neck Exam Absent: JVD - Routine Respiratory Exam Present: CTA bilaterally - Routine Cardiovascular Exam Present: RRR, S1, S2. Absent: murmur, gallop - Routine Abdominal Exam Present: soft, normoactive bowel sounds. Absent: tenderness, organomegaly - Routine Extremities Exam Absent: cyanosis, clubbing, edema Results 08/01/18 07:10 08/01/18 07:10 Cardiac Enzymes 07/31/18 07/31/18 07/31/18 Range/Units 08:50 08:50 14:30 AST 68 H (15-37) U/L Troponin I 0.03 0.03 (0.02-0.05) ng/mL B-Natriuretic Peptide 797 H (0-100) pg/mL 07/31/18 08/01/18 Range/Units 20:16 07:10 AST 52 H (15-37) U/L Troponin I 0.02 (0.02-0.05) ng/mL B-Natriuretic Peptide (0-100) pg/mL Coagulation 07/31/18 Range/Units 08:50 B-Natriuretic Peptide 797 H (0-100) pg/mL CBC 07/31/18 08/01/18 Range/Units 08:50 07:10 WBC 7.3 9.0 (4.0-11.0) th/mm3 RBC 4.68 4.33 L (4.50-5.90) mil/mm3 Hgb 12.7 L 11.9 L (13.0-17.0) gm/dL Hct 37.9 L 35.0 L (39.0-51.0) % Plt Count 195 200 (150-450) th/mm3 Neut # (Auto) 4.9 6.5 (1.8-7.7) th/mm3 Lymph # (Auto) 1.3 1.5 (1.0-4.8) th/mm3 [place] # (Auto) 0.6 0.6 (0.0-0.9) th/mm3 Eos # (Auto) 0.3 0.3 (0.0-0.4) th/mm3 Baso # (Auto) 0.1 0.1 (0.0-0.2) th/mm3 Comprehensive Metabolic Panel 07/31/18 08/01/18 Range/Units 08:50 07:10 Sodium 139 141 (136-145) meq/L Potassium 3.6 3.9 (3.5-5.1) meq/L Chloride 107 106 (98-107) meq/L Carbon Dioxide 26.1 24.4 (21.0-32.0) meq/L BUN 20 H 18 (7-18) mg/dL Creatinine 1.48 H 1.42 H (0.60-1.30) mg/dL Calcium 8.8 8.9 (8.5-10.1) mg/dL AST 68 H 52 H (15-37) U/L ALT 94 H 73 (12-78) U/L Alkaline Phosphatase 77 68 (45-117) U/L Total Protein 7.6 7.1 (6.4-8.2) g/dL Albumin 3.5 3.1 L (3.4-5.0) g/dL Intake and Output 07/31/18 08/01/18 08/01/18 22:59 06:59 14:59 Intake Total 120 / 120 Output Total 1600 / 1600 Balance -1480 / -1480 Intake: Oral 120 / 120 Output: Urine 1600 / 1600 Other: Date of Last Bowel Movement 08/01/18 Weight 86.2 kg 85.6 kg Weight On Admission 86.2 kg - Imaging and Cardiology Imaging: Impressions Chest X-Ray 07/31/18 08:41 CONCLUSION: 1. Bibasilar patchiness consistent with possible pneumonia. Clinical relation is recommended. 2. Stable cardiomegaly. 3. Degenerative changes throughout the thoracic spine. Assessment and Plan - Assessment (1) Coronary artery disease Code(s): I25.10 - Atherosclerotic heart disease of [place] coronary artery without angina pectoris Status: Chronic Plan: Stable overnight. No further chest discomfort. Favorable findings on cath 12 months ago. Await nuclear stress test results; unless large amount or severe ischemia demonstrated recommend continue medical therapy. If severe ischemia, recommend hold apixaban for cath Saturday. (2) Paroxysmal atrial fibrillation Code(s): I48.0 - Paroxysmal atrial fibrillation Status: Chronic Plan: Stable. History of Maze procedure at time of his MV repair. Will consider stopping apixaban in the near future. (3) Hypertension Code(s): I10 - Essential (primary) hypertension Status: Chronic Plan: Still suboptimal BP control despite multidrug therapy. Recommend add clonidine 0.2 mg tid. (4) History of mitral valve repair Code(s): Z98.890 - Other specified postprocedural states Status: Chronic Plan: Stable. Normal cardiac exam. - Plan Code Status: full Discussed Condition With: patient (1) Coronary artery disease Qualifiers: Coronary Disease-Associated Artery/Lesion type: [place] artery [place] vs. transplanted heart: [place] heart Associated angina: with unspecified angina Qualified Code(s): I25.119 - Atherosclerotic heart disease of [place] coronary artery with unspecified angina pectoris (3) Hypertension Qualifiers: Hypertension type: essential hypertension Qualified Code(s): I10 - Essential (primary) hypertension
--- NOTE | 2018-08-01 14:32 | NM ---
EXAM DATE: 08/01/2018 2:27 PM EST AGE/SEX: 63 years / Male INDICATIONS:Angina. . Chest pain and chills. CLINICAL DATA: This is the patient's initial encounter. Patient reports that signs and symptoms have been present for 4 - 6 days and indicates a pain score of 4/10. MEDICAL/SURGICAL HISTORY: Hypertension. Renal failure, chronic. CABG. Angioplasty. Mitral bambi ve replacement. COMPARISON: [facility] [place], MYOCARDIAL PERF PHARM SPECT, 08/07/2017. . DOSE: 8.5 mCi Tc 99m Myoview at rest 26.4 mCi [id number] at stress 0.4 mg Lexiscan STRESS SYMPTOMS: None. EJECTION FRACTION: 50 % TECHNIQUE: The patient underwent pharmacologic stress with infusion of prescribed dose. Continuous ECG tracing was monitored during stress. Gated SPECT imaging was performed after stress and conventi onal SPECT imaging was performed at rest. The examination was performed on a SPECT/CT scanner, both attenuation and non-corrected datasets were reviewed. FINDINGS: Distribution: The maximum perfused segment at stress is in the anterior wall. Perfusion Study: There is fixed defect involving the lateral wall indicating infarct in the LCx distr ibution. No reversible defects are noted to suggest ischemia. Gated Study: There are intact wall motion and wall thickening without hypokinetic or dyskinetic segm ents. The ejection fraction is calculated at 50%. RISK CATEGORY: Intermediate (1-3 % Annual Mortality Rate) CONCLUSION: 1. Fixed defect involving the lateral wall indicating infarct in the LCx distribution. 2. No reversible defect to suggest ischemia. Electronically signed by: Gadiel Villar MD Board Certified Radiologist 08/01/2018 2:31 PM EST
--- NOTE | 2018-08-06 16:23 | ECHRPT ---
Indication: Chest Pain CONCLUSIONS Normal left ventricular size. Moderate concentric left ventricular hypertrophy. The left ventricular systolic function is normal with an estimated ejection fraction in the range of 55-60%. The left atrial size is mildly dilated. Mild mitral valve regurgitation. Mitral valve annuloplasty ring is present. There is trace tricuspid valve regurgitation. The estimated pulmonary arterial pressure is 51 mmHg. Trivial pulmonary valve regurgitation. BP: / HR: Rhythm: MEASUREMENTS (Male / Female) Normal Values Technical Quality:Good 2D ECHO LV Diastolic Diameter PLAX 4.6 cm 4.2 - 5.9 / 3.9 - 5.3 cm LV Systolic Diameter PLAX 3.1 cm IVS Diastolic Thickness 1.5 cm 0.6 - 1.0 / 0.6 - 0.9 cm LVPW Diastolic Thickness 1.5 cm 0.6 - 1.0 / 0.6 - 0.9 cm LV Relative Wall Thickness 0.7 RV Internal Dim ED PLAX 3.4 cm LVOT Diameter 2.3 cm Aortic Root Diameter 2.9 cm LA Systolic Diameter LX 4.5 cm 3.0 - 4.0 / 2.7 - 3.8 cm DOPPLER AV Peak Velocity 140.0 cm/s AV Peak Gradient 7.8 mmHg LVOT Peak Velocity 90.7 cm/s LVOT Peak Gradient 3.3 mmHg AV Area Cont Eq pk 2.7 cm MV Peak Velocity 188.0 cm/s MV Peak Gradient 14.1 mmHg MV Mean Velocity 108.5 cm/s MV Mean Gradient 5.5 mmHg Mitral E Point Velocity 178.0 cm/s Mitral A Point Velocity 54.3 cm/s Mitral E to A Ratio 3.3 LV E' Lateral Velocity 7.1 cm/s Mitral E to LV E' Lateral Ratio 25.0 LV E' Septal Velocity 5.6 cm/s Mitral E to LV E' Septal Ratio 32.0 TR Peak Velocity 320.0 cm/s TR Peak Gradient 41.0 mmHg Right Atrial Pressure 10.0 mmHg Pulmonary Artery Systolic Pressu 51.0 mmHg Right Ventricular Systolic Press 51.0 mmHg PV Peak Velocity 118.0 cm/s PV Peak Gradient 5.6 mmHg FINDINGS LEFT VENTRICLE Normal left ventricular size. Moderate concentric left ventricular hypertrophy. The left ventricular systolic function is normal with an estimated ejection fraction in the range of 55-60%. RIGHT VENTRICLE Normal right ventricular size and systolic function. LEFT ATRIUM The left atrial size is mildly dilated. RIGHT ATRIUM The right atrial size is normal. ATRIAL SEPTUM Normal atrial septal thickness without atrial level shunting by limited color doppler interrogation. AORTA The aortic root and proximal ascending aorta are normal in size on limited imaging. MITRAL VALVE Mild mitral valve regurgitation. Mitral valve annuloplasty ring is present. AORTIC VALVE Trileaflet aortic valve. No aortic valve stenosis or regurgitation. TRICUSPID VALVE There is trace tricuspid valve regurgitation. The estimated pulmonary arterial pressure is 51 mmHg. PULMONARY VALVE Trivial pulmonary valve regurgitation. VESSELS The inferior vena cava is normal in size. PERICARDIUM No pericardial effusion. Jose Lamas MD, FACC, FSCAI (Electronically Signed) Final Date:06 August 2018 16:22
== END 2018-08-01 16:38 | disposition home or self-care (01) ==
LOC: NEPE 08:09 → INTOOBSV 12:18 → NEDA 12:18 → N04 15:25
PROVIDERS: ADMIT Hospitalist; ATTEND Hospitalist
CPT/HCPCS: 71010; 71045; 78452; 80053; 82550; 83520; 83880; 84484; 85025; 90774; 90775; 90784; 93005; 93017; 93306; 96374; 96375; 96376; 99285; A9502; C8952; G0378; J2785